=== PATIENT | female | born 1965 | race Caucasian/White ===

== ENCOUNTER 2018-09-13 12:48 | Inpatient (IN) ==
[2018-09-13] MEDS ORDERED: *HR* Promethazine 25 MG/ML VIAL IVP PRN (21:42)
[2018-09-13] MEDS ORDERED: Octreotide 50 MCG/ML SYRINGE IVP ONE (21:42)
[2018-09-13] MEDS ORDERED: *HR* LORazepam 2 MG/ML VIAL IVP PRN (21:42)
[2018-09-13] MEDS ORDERED: Naloxone 0.4 MG/ML INJ IVP PRN (21:42)
[2018-09-13] MEDS ORDERED: Albuterol 2.5 MG/3 ML NEBULIZER IH PRN (21:52)
[2018-09-13] MEDS ORDERED: hydrALAZINE 25 MG TABLET PO SCH (22:00)
[2018-09-13] MEDS: Ipratropium/Albuterol Neb 3 ML IH SCH (22:49)
[2018-09-13 22:50] LABS: Basophils % 0.8 %; Eosinophils % 1.7 %; Hematocrit 24.9 % (35.3-44.9); Hemoglobin 8.5 g/dL (11.5-15.4); Immature Granulocytes % 0.4 % (0-4); Immature Platelets 2.2 % (1.1-6.1); Lymphocytes # 0.4 K/mcL (0.6-4.6); Mean Corpuscular HGB Conc 34.1 g/dL (31.6-35.5); Mean Corpuscular Hemoglobin 29.7 pg (28.0-33.3); Mean Corpuscular Volume 87.1 fL (83.0-100.0); Mean Platelet Volume 9.3 fL (9.4-12.4); Monocytes # 0.4 K/mcL (0.0-1.3); Neutrophils # 1.6 K/mcL (1.6-8.9); Red Blood Count 2.86 M/mcL (3.82-4.97); Red Cell Distribution Width 13.7 % (11.5-14.5); Segmented Neutrophils % 67.1 %
[2018-09-13] MEDS: Vitamin B Complex/Vit C/Vit E 1 EACH TABLET PO SCH (22:50)
[2018-09-13] MEDS: Thiamine (B-1) 100 MG TABLET PO SCH (22:50)
[2018-09-13] MEDS: Gabapentin 300 MG CAPSULE PO SCH (22:50)
[2018-09-13] MEDS: Folic Acid 1 MG TABLET PO SCH (22:50)
[2018-09-13] MEDS: Levofloxacin 500 MG/100 ML 500 MG/100 ML BAG IVPB SCH (22:55)
--- NOTE | 2018-09-13 22:55 | Internal Med History&Physical ---
Date of Encounter: 09/13/18 Time of Encounter: 20:05 Internal Medicine - H&P: HPI Chief complaint: weak, anemic, SOB, cough, GI bleed Admitted From: Hospital to Hospital Transfer Plans for Post Hospital Care: Home History of present illness: Ms. Alexander is a 52 year old female who presents in transfer from [facility] for concerns of GI/variceal bleed. She was admitted there overnight last night for concerns of symptomatic anemia, weakness, cough, COPD flareup, and hyponatremia. She was found to be anemic with a hemoglobin of 10.1 yesterday and then follow-up testing today revealed hemoglobin of 7.2. Patient, herself, denies any hematemesis, melena, or hematochezia. I cannot find any documentation in the transfer records of any gross blood loss per nursing and/or transfer notes. However, there is a 3 g hemoglobin drop. I reviewed old records and note that she has known esophageal varices. Her last endoscopy here was 2 years ago in May,. At that time, she underwent variceal banding by Dr. Kelsey. She also has laboratory evidence of pancreatitis. She is a heavy drinker of alcohol and has cirrhosis secondary to alcohol abuse. She denies any fevers, but she has had cough, wheezing, productive sputum, and some difficulty breathing at times with wheezing. Because of the high concern for variceal bleed, I contacted Dr. Kelsey and spoke to him by telephone. He is av ailable should we need to proceed with EGD emergently. He recommended starting her on octreotide infusion, transfusing blood as needed, and monitoring her closely. Regarding her hyponatremia, reviewed old labs and this appears to be chronic and most likely due to chronic alcohol abuse. Despite laboratory evidence of pancreatitis, she is requesting food and is hungry. She denies any abdominal pain, nausea, or vomiting. Past Med Surg Social Fam HX - Past Medical History Attestation: Yes The following information was validated with the patient. Source: patient, old records reviewed, obtained from family, other (transfer records) Medical history: cirrhosis, GERD, hypertension, liver disease, renal disease, thyroid disease Additional medical history: esophageal varices grade 2, insomnia Psychiatric history: no psych history - Past Surgical History Surgical History: orthopedic, other, other Additional surgical history: egd - esophageal banding, hand surgery, tonsils and adenoids, jaw, head - Social History Smoking Status: Current every day smoker Packs per day: 1 Smokeless Tobacco Status: Yes Alcohol use: heavy, recent Drug use: none Current living situation: Home, With Family Activity Level: Independent ambulation Recent Out of Country Travel Within the Last 8 Weeks: No - Family History Mother Hx Family GI Disorders: No Father Hx Family GI Disorders: No Internal Medicine - H&P: Meds Furosemide [Lasix] 20 mg PO BID PRN 05/30/16 [History] Gabapentin [Neurontin] 300 mg PO BID 05/30/16 [History] Iron Polysaccharide Complex [Ferrex 150] 150 mg PO DAILY 05/30/16 [History] Levothyroxine [Synthroid] 175 mcg PO DAILY 05/30/16 [History] Omeprazole [PriLOSEC] 20 mg PO DAILY 05/30/16 [History] Potassium Chloride [K-Tab ER] 20 meq PO DAILY 05/30/16 [History] Lisinopril [Zestril] 20 mg PO DAILY 07/26/17 [History] Albuterol Sulfate [Albuterol Inhaler] 2 puff IH Q4HR PRN 09/13/18 [History] Doxycycline 100 mg PO BID 09/13/18 [History] Hydralazine HCl 50 mg PO TID 09/13/18 [History] Nadolol 20 mg PO DAILY 09/13/18 [History] Oxycodone HCl 5 mg PO Q8H PRN 09/13/18 [History] Spironolactone 25 mg PO DAILY 09/13/18 [History] Trazodone HCl 50 mg PO HS 09/13/18 [History] Allergy/AdvReac Type Severity Reaction Status Date / Time No Known Allergies Allergy Verified 09/13/18 19:34 - Constitutional Constitutional: fatigue, malaise, weakness, no chills, no fever(s), no night sweats - EENT Eyes: no blurry vision, no change in vision Ears: no ear pain, no tinnitus Nose, mouth and throat: no nasal congestion, no sinus pressure, no sore throat - Cardiovascular Cardiovascular ROS IM: dyspnea, dyspnea on exertion, lightheadedness, no chest pain, no orthopnea, no paroxysmal nocturnal dyspnea, no syncope - Respiratory Respiratory: cough, dyspnea, wheezing, chest congestion, change in phlegm color, no hemoptysis, no excessive phlegm production, no pain with cough - Gastrointestinal Gastrointestinal: heartburn, no abdominal pain, no diarrhea, no hematemesis, no hematochezia, no melena, no nausea, no vomiting - Genitourinary Genitourinary: no dysuria, no flank pain, no hematuria - Musculoskeletal Musculoskeletal ROS IM: no arthralgias, no back pain - Integumentary Integumentary IM: no pruritus, no rash, no jaundice - Neurological Neurological ROS: dizziness, no convulsions, no disequilibrium, no focal weakness, no frequent falls, no headache(s) - Psychiatric Psychiatric: no anxiety, no depression - Endocrine Endocrine IM: no cold intolerance, no heat intolerance, no polydipsia, no poly uria - Hematologic/Lymphatic Hematologic/Lymphatic: easy bruising - Allergic/Immunologic Allergic/Immunologic: wheezing, GI upset with certain foods - Constitutional Vitals: Temp Pulse Resp BP Pulse Ox 98.4 F 64 15 188/82 98 09/13/18 19:35 09/13/18 19:35 09/13/18 19:35 09/13/18 19:35 09/13/18 19:35 General appearance: Present: disheveled, A&O X 3, no acute distress, answers questions appropriately Exam: see below - Head Head exam: Present: atraumatic, normal inspection - Eye Eye exam: Present: EOMI, PERRL. Absent: scleral icterus Pupils: Present: normal accommodation - ENT ENT exam: Present: mucous membranes dry, normal oropharynx Additional comments: poor dentition - Neck Neck exam general surgery: Present: full ROM, supple, trachea midline. Absent: tenderness, nuchal rigidity, thyromegaly - Respiratory Respiratory exam: Present: prolonged expiratory phase, rales (left lung 1/2 way up), rhonchi, wheezes (diffuse scattered wheezes). Absent: accessory muscle use, chest wall tenderness, respiratory distress - Cardiovascular Cardiovascular exam: Present: distant heart sounds, +S1, +S2, systolic murmur. Absent: diastolic murmur, JVD - GI/Abdominal GI/Abdominal exam: Present: distended, hypoactive bowel sounds, soft, no peritoneal signs. Absent: guarding, hepatomegaly, mass, rebound, splenomegaly, tenderness - Extremities Exam Extremities exam: Present: full ROM, pedal edema (1-2+), warm, radial pulses palpable and symmetrical. Absent: calf tenderness, joint swelling, tenderness Additional comments: palmar erythema - Back Exam Back exam: Present: normal inspection. Absent: CVA tenderness (L), CVA tenderness (R) - Neurological Exam Neurological exam: Present: alert, CN II-XII intact, oriented X3, no focal deficits, strengths equal and symetr throughout Additional comments: no tremors, no asterixis; no hallucinations; no sign of withdrawal - Psychiatric Psychiatric exam: Present: flat affect - Skin Skin exam: Present: dry, intact, petechiae (rare, scattered), warm. Absent: rash Internal Med - H&P Results - Labs Labs: I reviewed labs from [facility] include the following: Sodium 122 Potassium 4.9 Chloride 86 Carbon dioxide 23 BUN 38 Creatinine 2.1 Glucose 96 Total bilirubin 1.0 AST 38 ALT 30 Alkaline phosphatase 187 Lipase 793 PT 12.5 INR 1.22 Hemoglobin yesterday was 10.1, today was 7.2 - Assessment and Plan (1) Upper GI bleed Current Visit: Yes Status: Acute Assessment and plan: 1. Will order STAT labs including: CBC, CMP, PT/PTT, amylase, lipase, T&C for PRBC, blood culture, and CXR. 2. Will start Octreotide and protonix drips. 3. Will monitor serial H/H. 4. Transfuse PRBC to keep Hgb > 10. 5. Consult Dr. Kelsey -- discussed with and notified him. 6. Monitor on telemetry; if she develops acute bleeding and/or becomes hemodynamically unstable, will transfer to ICU. (2) Alcoholism Current Visit: Yes Status: Acute Assessment and plan: 1. Will place on CIWA protocol and monitor closely. 2. Will also schedule low dose Librium in hopes of preventing withdrawal symptoms. (3) Acute exacerbation of chronic obstructive pulmonary disease (COPD) Current Visit: Yes Status: Acute Assessment and plan: 1, Will order CXR, blood culture, sputum culture. 2. Will start on antibiotics, aerosols, and oxygen PRN. 3. She may need systemic steroids as well. (4) DVT prophylaxis Current Visit: Yes Status: Acute Assessment and plan: 1. EPCD's.
[2018-09-13 22:56] LABS: INR 1.4; Prothrombin Time 15.9 Seconds (9.4-12.1)
[2018-09-13 22:59] LABS: Activated Partial Thrombo Time 32.6 Seconds (26.0-36.0)
[2018-09-13 23:09] LABS: Albumin 2.8 g/dL (3.5-5.7); Bilirubin,Total 0.9 mg/dL (0.3-1.0); Calcium 8.2 mg/dL (8.6-10.3); Globulin 2.7 g/dL (2.4-3.5); Magnesium 1.6 mg/dL (1.6-2.6); Phosphorous 4.2 mg/dL (2.7-4.5); Potassium 5.1 mEq/L (3.5-5.1); Total Protein 5.5 g/dL (6.4-8.9)
[2018-09-13 23:12] LABS: Platelet Count 69 K/mcL (140-400)
[2018-09-13 23:14] LABS: Platelet Estimate Decreased (Normal)
[2018-09-13 23:19] LABS: Influenza A PCR Negative (Negative); Influenza B PCR Negative (Negative); Resp. Syncytial Virus PCR Negative (Negative)
[2018-09-13] MEDS: Pantoprazole 40 MG in 0.9 % Sodium Chloride Mini Bag 100 ML IVC SCH (23:20)
[2018-09-13] MEDS: *HR* OxyCODONE Immed Rel 5 MG TABLET PO PRN (23:30)
[2018-09-14] MEDS: Octreotide 400 MCG in 0.9 % Sodium Chloride 100 ML IVC SCH ×3 (00:20→18:41)
[2018-09-14] MEDS ORDERED: 0.9 % Sodium Chloride 500 ML ONE (00:42)
[2018-09-14 02:40] LABS: Calcium 7.9 mg/dL (8.6-10.3); Potassium 5.5 mEq/L (3.5-5.1)
[2018-09-14] MEDS: Pantoprazole 40 MG in 0.9 % Sodium Chloride Mini Bag 100 ML IVC SCH ×3 (03:58→21:37)
[2018-09-14] MEDS: Ipratropium/Albuterol Neb 3 ML IH SCH ×4 (04:14→22:14)
[2018-09-14] MEDS: Folic Acid 1 MG TABLET PO SCH (07:33)
[2018-09-14] MEDS: Gabapentin 300 MG CAPSULE PO SCH ×2 (07:33→20:37)
[2018-09-14] MEDS: Spironolactone 25 MG TABLET PO SCH (07:33)
[2018-09-14] MEDS: Vitamin B Complex/Vit C/Vit E 1 EACH TABLET PO SCH (07:33)
[2018-09-14] MEDS: *HR* OxyCODONE Immed Rel 5 MG TABLET PO PRN ×2 (07:33→16:41)
[2018-09-14] MEDS: Thiamine (B-1) 100 MG TABLET PO SCH (07:34)
[2018-09-14 09:21] LABS: Hematocrit 34.7 % (35.3-44.9)
[2018-09-14 09:22] LABS: Hemoglobin 11.4 g/dL (11.5-15.4)
[2018-09-14 09:36] LABS: Calcium 8.3 mg/dL (8.6-10.3); Potassium 5.2 mEq/L (3.5-5.1)
--- NOTE | 2018-09-14 10:12 | Internal Med Progress Note ---
Hospitalist Progress Note - Encounter Date of Encounter: 09/14/18 Time of Encounter: 10:08 - Subjective Interval History: I've seen and evaluated the patient at bedside. patient reported her pcp told her to go to the hospital due to having low blood level and low sodium. the patient denies seeing blood in her stool or bloody emesis. denies chest pain, na usea or vomiting. - Exam Vitals: Temp Pulse Resp BP Pulse Ox 98.3 F 59 12 194/85 99 09/14/18 07:43 09/14/18 07:43 09/14/18 07:43 09/14/18 07:43 09/14/18 07:43 Exam: Vitals: Reviewed General: Alert and oriented x4. In no distress Skin: Normal color, no rash, no lesions. HEENT: mild sclera icterus, EOM, pupils equal, round and reactive. Cardiovascular: RRR, normal S1 & S2, no rubs, murmurs or gallops. Lungs: CTA b/l, no wheezes or crackles. Abdomen: distended with shifting dullness, non-tender, no rigidity. Extremities: No deformity, no edema or tenderness, no joint swelling or clubbing. Neurological: Normal cognition and motor skills. Rest of the physical exam is non contributory - Assessment and Plan (1) Upper GI bleed Current Visit: Yes Status: Suspected Assessment and Plan: patient is admitted to the hospital due to suspected GI, due to drop in H&H and Hx of esophageal varices. Plan patient has received 2 units of PRBCs continue PPI and octreotide drip per GI recommendations serial cbc Q6HRs, will transfuse per protocol empirically on antibiotics FOBT ordered GI recommendations appreciated (2) Alcoholism Current Visit: Yes Status: Acute Assessment and Plan: patient with no intentional or resting tremors. continue CIWA protocol (3) Acute exacerbation of chronic obstructive pulmonary disease (COPD) Current Visit: Yes Status: Acute Assessment and Plan: CTA b/l. patient in no respiratory distress. continue bronchodilators Q4RT scheduled and PRN will hold steroids due to suspicious of GI bleeding incentive spirometry on levofloxacin 750mg/IV daily (4) Hypertension Current Visit: Yes Status: Chronic Assessment and Plan: BP has been sub-optimally controlled. will resume home dose of hydralazine 50mg/PO TID. lisinopril held due to elevated creat continue hydralazine 10mg/IV Q6HR PRN for SBP >190 (5) Hyperkalemia Current Visit: Yes Status: Acute Assessment and Plan: possible due to spironolactone. will hold today's dose. and repeat bmp at 5pm (6) Liver cirrhosis Current Visit: Yes Status: Chronic Assessment and Plan: patient is on spironolactone. today dose is held due to hyperkalemia patient on nadolol 20mg/PO daily. Patient with cirrhosis and esophageal varices. (7) Hypothyroidism Current Visit: Yes Status: Acute Assessment and Plan: continue levothyroxine 175 mcg/po daily (8) Hyponatremia Current Visit: Yes Status: Acute Assessment and Plan: fluids restriction to 1.5 litters a day. THS reflex to T4 ordered. DVT Prophylaxis: No chemical DVT prophylaxis due to suspected GI bleeding mechanical dvt prophylaxis with intermittent pneumatic compression - Summary of Assessment and Plan Summary of Assessment and Plan: patient to remain in the hospital due to anemia requiring blood transfusion. possible GI bleeding. - Time Spent with Patient Total time spent is greater than 50% in coordination of care (as documented) at patient's floor/unit and/or counseling patient: Greater than 35 minutes (45) Plan of Care Discussed with: patient (and the nurse.) Internal Medicine: Result - Labs CBC & Chem 7: 09/14/18 09:00 09/14/18 09:00 Labs: Short CBC 09/13/18 09/14/18 09/14/18 Range/Units 22:08 02:09 09:00 WBC 2.4 L (4.3-11.1) K/mcL Hgb 8.5 L 8.0 L 11.4 L D (11.5-15.4) g/dL Hct 24.9 L 24.0 L 34.7 L (35.3-44.9) % Plt Count 69 L (140-400) K/mcL Neutrophils # 1.6 (1.6-8.9) K/mcL BMP 09/13/18 09/14/18 09/14/18 22:08 02:09 09:00 Sodium 127 L 125 L 127 L Potassium 5.1 5.5 H 5.2 H Chloride 97 L 100 100 Carbon Dioxide 22 L 19 L 19 L BUN 45 H 43 H 41 H Creatinine 2.13 H 2.01 H 2.01 H Glucose 79 159 H 143 H Calcium 8.2 L 7.9 L 8.3 L Liver Function 09/13/18 Range/Units 22:08 Total Bilirubin 0.9 (0.3-1.0) mg/dL AST 25 (13-39) Units/L ALT 15 (7-52) Units/L Alkaline Phosphatase 129 H (34-104) Units/L Albumin 2.8 L (3.5-5.7) g/dL - ABG Interpretation ABG results: PT/INR, D-dimer PT 15.9 Seconds (9.4-12.1) H 09/13/18 22:22 - Impressions Impressions Chest X-Ray 09/13/18 21:42 IMPRESSION: No acute findings. D/ / Baltazar Bassett / Baltazar Bassett Interpreting Provider: Baltazar Bassett Consult Discharge Plan - Plan Referrals: NONE,PCP [Primary Care Provider] - ____ (4) Hypertension Qualifiers: Hypertension type: unspecified Qualified Code(s): I10 - Essential (primary) hypertension (6) Liver cirrhosis Qualifiers: Hepatic cirrhosis type: alcoholic cirrhosis Ascites presence: with ascites Qualified Code(s): K70.31 - Alcoholic cirrhosis of liver with ascites
[2018-09-14 14:47] LABS: Hematocrit 35.7 % (35.3-44.9); Hemoglobin 11.7 g/dL (11.5-15.4)
[2018-09-14] MEDS: hydrALAZINE 25 MG TABLET PO SCH (14:54)
[2018-09-14 14:55] LABS: Calcium 8.5 mg/dL (8.6-10.3); Potassium 4.6 mEq/L (3.5-5.1)
[2018-09-14] MEDS: Artificial Tears SOLN 15 ML BOTTLE BOTH EYES SCH ×2 (18:01→20:37)
[2018-09-14 20:05] LABS: Hematocrit 37.7 % (35.3-44.9); Hemoglobin 12.3 g/dL (11.5-15.4)
[2018-09-14 20:26] LABS: Calcium 8.6 mg/dL (8.6-10.3); Potassium 4.5 mEq/L (3.5-5.1)
[2018-09-14] MEDS: traZODone 50 MG TABLET PO PRN (20:41)
[2018-09-14] MEDS: Levofloxacin 500 MG/100 ML 500 MG/100 ML BAG IVPB SCH (21:40)
[2018-09-15] MEDS: hydrALAZINE 25 MG TABLET PO SCH ×3 (00:37→15:07)
[2018-09-15] MEDS: *HR* OxyCODONE Immed Rel 5 MG TABLET PO PRN ×3 (00:57→19:31)
[2018-09-15] MEDS ORDERED: Octreotide 400 MCG in 0.9 % Sodium Chloride 100 ML IVC SCH (01:45)
[2018-09-15] MEDS: Octreotide 400 MCG in 0.9 % Sodium Chloride 100 ML IVC SCH (02:01)
[2018-09-15] MEDS: Pantoprazole 40 MG in 0.9 % Sodium Chloride Mini Bag 100 ML IVC SCH (02:41)
[2018-09-15 03:07] LABS: Calcium 8.1 mg/dL (8.6-10.3); Magnesium 1.4 mg/dL (1.6-2.6)
[2018-09-15] MEDS: Ipratropium/Albuterol Neb 3 ML IH SCH ×4 (03:56→21:59)
[2018-09-15 04:04] LABS: Basophils % 1.1 %; Hemoglobin 10.8 g/dL (11.5-15.4); Lymphocytes % 8.3 %; Mean Corpuscular Hemoglobin 29.3 pg (28.0-33.3); Mean Platelet Volume 10.6 fL (9.4-12.4); Red Blood Count 3.69 M/mcL (3.82-4.97); Red Cell Distribution Width 14.6 % (11.5-14.5)
[2018-09-15 04:06] LABS: Eosinophils # 0.1 K/mcL (0.0-0.6); Eosinophils % 2.9 %; Hematocrit 32.4 % (35.3-44.9); Immature Granulocytes % 0.3 % (0-4); Immature Platelets 10.4 % (1.1-6.1); Lymphocytes # 0.3 K/mcL (0.6-4.6); Mean Corpuscular HGB Conc 33.3 g/dL (31.6-35.5); Mean Corpuscular Volume 87.8 fL (83.0-100.0); Monocytes # 0.6 K/mcL (0.0-1.3); Monocytes % 17.4 %; Neutrophils # 2.6 K/mcL (1.6-8.9); Platelet Count 48 K/mcL (140-400)
[2018-09-15 04:28] LABS: Platelet Estimate Decreased (Normal)
[2018-09-15 06:31] LABS: Hemoglobin 11.5 g/dL (11.5-15.4)
[2018-09-15 06:53] LABS: Calcium 8.3 mg/dL (8.6-10.3); Potassium 5.2 mEq/L (3.5-5.1)
[2018-09-15] MEDS: Thiamine (B-1) 100 MG TABLET PO SCH (07:34)
[2018-09-15] MEDS: Vitamin B Complex/Vit C/Vit E 1 EACH TABLET PO SCH (07:34)
[2018-09-15] MEDS: Folic Acid 1 MG TABLET PO SCH (07:35)
[2018-09-15] MEDS: Gabapentin 300 MG CAPSULE PO SCH ×2 (07:35→19:51)
--- NOTE | 2018-09-15 11:49 | Internal Med Progress Note ---
Hospitalist Progress Note - Encounter Date of Encounter: 09/15/18 Time of Encounter: 11:46 - Subjective Interval History: I have seen and evaluated the patient at bedside. patient denies abdominal pain, has not have a BM, denies nausea or vomiting. reports feeling bloated and that she wants to eat. - Exam Vitals: Temp Pulse Resp BP Pulse Ox 97.7 F 69 16 134/79 96 09/15/18 10:18 09/15/18 10:18 09/15/18 10:34 09/15/18 10:18 09/15/18 10:34 Exam: Vitals: Reviewed General: Alert and oriented x4. In no distress HEENT: mild sclera icterus Cardiovascular: RRR, normal S1 & S2, no rubs, murmurs or gallops. Lungs: CTA b/l, no wheezes or crackles. Abdomen: distended with shifting dullness, non-tender, no rigidity. NASB in all 4 quadrants Extremities: No edema Neurological: Normal cognition Rest of the physical exam is non contributory - Assessment and Plan (1) Upper GI bleed Current Visit: Yes Status: Suspected Assessment and Plan: patient admitted for suspicious of GI bleeding with a hx of esophageal varices H&H have remain stable post transfusion of 2 units of PRBCs discontinue octreotide drip discontinue PPI drip will add pantoprazole 40mg/IV BID. clear liquid diet GI has been consulted (2) Alcoholism Current Visit: Yes Status: Acute Assessment and Plan: continue CIWA protocol (3) Acute exacerbation of chronic obstructive pulmonary disease (COPD) Current Visit: Yes Status: Acute Assessment and Plan: excerbation on presentation has resolved. patient chest is clear to auscultation and she is not on respiratory distress. continue bronchodilators Q4RT scheduled. incentive spirometry continue empiric antibiotic coverage with levofloxacin (4) Hypertension Current Visit: Yes Status: Chronic Assessment and Plan: BP better controlled. continue hydralazine 50mg/PO Q8HR and spiromolactone 25mg/PO daily. (5) Hyperkalemia Current Visit: Yes Status: Acute Assessment and Plan: Potassium at the upper limit of normal. patient is on spironolactone will monitor. repeat bmp in the morning (6) Liver cirrhosis Current Visit: Yes Status: Chronic Assessment and Plan: with abdominal ascites. continue spiromolactone 25mg/PO daily. will add furosemide 20mg/PO daily (7) Hypothyroidism Current Visit: Yes Status: Chronic Assessment and Plan: on levothyrocine 175 mcg/PO daily (8) Hyponatremia Current Visit: Yes Status: Acute Assessment and Plan: possible due to spironolactone. continue fluids restriction to 1.5 litters a day. started on furosemide. hold today's dose of spironolactone DVT Prophylaxis: no chemical DVT prophylaxis due to possible GI bleeding intermittent pneumatic compression for dvt prophylaxis - Summary of Assessment and Plan Summary of Assessment and Plan: patient to remain in the hospital due to anemia r/o GI bleeding. - Time Spent with Patient Total time spent is greater than 50% in coordination of care (as documented) at patient's floor/unit and/or counseling patient: Greater than 35 minutes (40) Plan of Care Discussed with: patient (and the nurse.) Internal Medicine: Result - Labs CBC & Chem 7: 09/15/18 05:57 09/15/18 05:57 Labs: Short CBC 09/14/18 09/14/18 09/15/18 Range/Units 14:26 19:56 03:52 WBC 3.7 L D (4.3-11.1) K/mcL Hgb 11.7 12.3 10.8 L D (11.5-15.4) g/dL Hct 35.7 37.7 32.4 L (35.3-44.9) % Plt Count 48 L (140-400) K/mcL Neutrophils # 2.6 (1.6-8.9) K/mcL 09/15/18 Range/Units 05:57 WBC (4.3-11.1) K/mcL Hgb 11.5 (11.5-15.4) g/dL Hct 36.0 (35.3-44.9) % Plt Count (140-400) K/mcL Neutrophils # (1.6-8.9) K/mcL BMP 09/14/18 09/14/18 09/15/18 14:26 19:56 02:20 Sodium 126 L 126 L 127 L Potassium 4.6 4.5 5.0 Chloride 100 100 102 Carbon Dioxide 17 L 17 L 17 L BUN 38 H 38 H 36 H Creatinine 2.09 H 2.06 H 1.83 H Glucose 175 H 115 H 97 Calcium 8.5 L 8.6 8.1 L 09/15/18 05:57 Sodium 127 L Potassium 5.2 H Chloride 102 Carbon Dioxide 18 L BUN 37 H Creatinine 1.95 H Glucose 92 Calcium 8.3 L - ABG Interpretation ABG results: PT/INR, D-dimer PT 15.9 Seconds (9.4-12.1) H 09/13/18 22:22 Consult Discharge Plan - Plan Referrals: NONE,PCP [Primary Care Provider] - (4) Hypertension Qualifiers: Hypertension type: unspecified Qualified Code(s): I10 - Essential (primary) hypertension (6) Liver cirrhosis Qualifiers: Hepatic cirrhosis type: alcoholic cirrhosis Ascites presence: with ascites Qualified Code(s): K70.31 - Alcoholic cirrhosis of liver with ascites (7) Hypothyroidism Qualifiers: Hypothyroidism type: unspecified Qualified Code(s): E03.9 - Hypothyroidism, unspecified
[2018-09-15 15:10] LABS: Hematocrit 38.4 % (35.3-44.9); Hemoglobin 12.3 g/dL (11.5-15.4)
[2018-09-15 15:28] LABS: Calcium 8.1 mg/dL (8.6-10.3); Potassium 4.7 mEq/L (3.5-5.1)
[2018-09-15] MEDS: Pantoprazole 40 MG VIAL IVP SCH (18:55)
[2018-09-15] MEDS: Artificial Tears SOLN 15 ML BOTTLE BOTH EYES SCH ×3 (18:56→21:34)
[2018-09-15 20:33] LABS: Hemoglobin 12.8 g/dL (11.5-15.4)
[2018-09-15 20:51] LABS: Calcium 8.6 mg/dL (8.6-10.3); Potassium 4.4 mEq/L (3.5-5.1)
[2018-09-15] MEDS ORDERED: Simethicone 80 MG TAB.CHEW PO PRN (21:18)
[2018-09-16] MEDS: hydrALAZINE 25 MG TABLET PO SCH ×3 (00:44→17:14)
[2018-09-16] MEDS: Ipratropium/Albuterol Neb 3 ML IH SCH ×4 (04:24→22:06)
[2018-09-16] MEDS: Pantoprazole 40 MG VIAL IVP SCH (05:39)
[2018-09-16 08:32] LABS: Hematocrit 36.5 % (35.3-44.9); Hemoglobin 11.8 g/dL (11.5-15.4); Immature Platelets 7.1 % (1.1-6.1); Mean Corpuscular HGB Conc 32.3 g/dL (31.6-35.5); Mean Corpuscular Hemoglobin 29.5 pg (28.0-33.3); Mean Corpuscular Volume 91.3 fL (83.0-100.0); Mean Platelet Volume 10.1 fL (9.4-12.4); Red Cell Distribution Width 14.8 % (11.5-14.5)
[2018-09-16 08:51] LABS: Calcium 8.6 mg/dL (8.6-10.3); Magnesium 1.6 mg/dL (1.6-2.6); Phosphorous 4.5 mg/dL (2.7-4.5); Potassium 4.6 mEq/L (3.5-5.1)
[2018-09-16] MEDS ORDERED: Furosemide 20 MG TABLET PO SCH (09:00)
[2018-09-16] MEDS ORDERED: Lidocaine -MPF 2% 2 ML VIAL ONE (11:19)
[2018-09-16] MEDS ORDERED: Propofol 500 MG/50 ML INFUS..BTL ONE (11:19)
[2018-09-16] MEDS: Artificial Tears SOLN 15 ML BOTTLE BOTH EYES SCH ×4 (11:59→20:55)
[2018-09-16] MEDS: Folic Acid 1 MG TABLET PO SCH (11:59)
[2018-09-16] MEDS: Gabapentin 300 MG CAPSULE PO SCH ×2 (12:00→20:56)
[2018-09-16] MEDS: Vitamin B Complex/Vit C/Vit E 1 EACH TABLET PO SCH (12:00)
[2018-09-16] MEDS: Thiamine (B-1) 100 MG TABLET PO SCH (12:00)
--- NOTE | 2018-09-16 13:13 | Anesthesia Evaluation PreOp ---
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 Other Medical History: Hepatic (cirrhosis, hep c), Renal (CKD), Thyroid (hypo), GERD, Other (esophageal varices grade 2) Anesthesia History: No Prior Anesthetic Complications, Past Anesthesia : No Alcohol Use: heavy, recent Drug use: none Medications and Allergies Furosemide [Lasix] 20 mg PO BID PRN 05/30/16 [History] Gabapentin [Neurontin] 300 mg PO BID 05/30/16 [History] Iron Polysaccharide Complex [Ferrex 150] 150 mg PO DAILY 05/30/16 [History] Levothyroxine [Synthroid] 175 mcg PO DAILY 05/30/16 [History] Omeprazole [PriLOSEC] 20 mg PO DAILY 05/30/16 [History] Potassium Chloride [K-Tab ER] 20 meq PO DAILY 05/30/16 [History] Lisinopril [Zestril] 20 mg PO DAILY 07/26/17 [History] Albuterol Sulfate [Albuterol Inhaler] 2 puff IH Q4HR PRN 09/13/18 [History] Doxycycline 100 mg PO BID 09/13/18 [History] Hydralazine HCl 50 mg PO TID 09/13/18 [History] Nadolol 20 mg PO DAILY 09/13/18 [History] Oxycodone HCl 5 mg PO Q8H PRN 09/13/18 [History] Spironolactone 25 mg PO DAILY 09/13/18 [History] Trazodone HCl 50 mg PO HS 09/13/18 [History] Allergy/AdvReac Type Severity Reaction Status Date / Time No Known Allergies Allergy Verified 09/13/18 19:34 - Meds/Allergy Pre-op Review Medications Reviewed: Yes Allergies Reviewed: Yes Beta Blockers on Current Med List: No Anesthesia Results - Labs 09/16/18 07:56 09/16/18 07:56 Anesthesia Exam Vital Signs/O2 Sat/Glucose, Most Recent Temp Pulse Resp BP Pulse Ox 97.4 F L 77 15 109/67 94 09/16/18 11:55 09/16/18 11:55 09/16/18 11:55 09/16/18 11:55 09/16/18 11:55 Blood Glucose* 99 Weight: 65 kg NPO (# of Hours): > 8 hr - HEENT Pupil (Motor): Pupils equal Mallampati: III Teeth: Poor dentition - 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
[2018-09-16] MEDS: 0.9 % Sodium Chloride 1,000 ML IVC SCH (13:43)
--- NOTE | 2018-09-16 13:44 | Gastroenterology Consult Note ---
<Anders Buckner - Last Filed: 09/16/18 13:52> Date of Encounter: 09/16/18 Time of Encounter: 11:25 - Assessment and plan (1) Anemia Current Visit: Yes Status: Acute Assessment and plan: She was found to be anemic with a Hgb 10.1 and then follow-up testing revealed Hgb of 7.2. On admission here Hgb 8.5 and today Hgb 11.8. She received 2 units PRBC 09/14. Continue to monitor CBC and transfuse PRBC as needed. Plan for EGD today to r/o esophagitis, esophageal varices, gastritis, duodenitis, PUD, MW tear, or AVM. Keep NPO. Qualifiers: Anemia type: unspecified type Qualified Code(s): D64.9 - Anemia, unspecified (2) Liver cirrhosis Current Visit: Yes Status: Chronic Assessment and plan: On admission MELD-Na 25, Child-Ahn class B, DF 25.7. Continue Lasix and Aldactone for now. Recommend 2-4 BMs daily, use Lactulose as needed. AFP 3 on 09/05/2018. Last RUQ US 07/25/2016 showed cirrhosis with no lesions. Check liver US. Lifestyle Changes: 1. Total abstinence from alcohol including social drinking. 2. No smoking. 3. Gradual loss of weight. 4. Drink at least 3 cups of coffee due to its antioxidant effects in the liver, it reduces risk of HCC and advance fibrosis. 5. If needed, use less than 2 g/day of Tylenol (in divided doses). 6. Vaccination for Hep A, B, Pneumococcus if not already received and yearly influenza vaccination by PCP. 7. Avoid NSAIDS as can cause kidney damage. 8. Avoid benzodiazepines and other sedatives such as anti-histamines, narcotics etc. as can cause encephalopathy or confusion. 9. Take a late carbohydrate meal supplement as it reduces glucose production from protein breakdown and thus improves nutrition. 10. In cirrhosis, statins are safe to use and also improve portal hypertension and decrease risk of HCC. 11. Screening: Hepatocellular cancer screening: US of liver and AFP every 6 months Qualifiers: Hepatic cirrhosis type: alcoholic cirrhosis Ascites presence: with ascites Qualified Code(s): K70.31 - Alcoholic cirrhosis of liver with ascites - Time Spent With Patient Total time spent is greater than 50% in coordination of care (as documented) at patient's floor/unit and/or counseling patient: GI History of Present Illness - Data of Consult Patient: known to practice within the last 3 years Consult date: 09/16/18 Requesting Physician: Rebel Ricketts MD - Consult Narrative Reason for consult: GI/variceal bleeding History of present illness: Ms. Alexander is a 52 year old female with PMHx of cirrhosis, GERD, HTN, COPD, renal disease who presented from outside facility with concerns for GI/variceal bleeding. She was admitted there overnight last night for concerns of symptomatic anemia, weakness, cough, COPD flareup, and hyponatremia. She was found to be anemic with a Hgb 10.1 and then follow-up testing revealed Hgb of 7.2. She denies any fever, chest pain, abdominal pain, melena, hematochezia, hematemesis, or coffee-ground emesis. On admission here Hgb 8.5 and today Hgb 11.8. She received 2 units PRBC 09/14. She is a heavy drinker of alcohol and has cirrhosis secondary to alcohol abuse. Procedures: Colonoscopy 07/26/2017 Dr. Jacobo: Fair prep, two 12 mm tubular adenomas, rectal varices. EGD 05/30/2016 Dr. Kelsey: Grade 1 varices which were banded, portal hypertensive gastropathy, repeat EGD one year. NSAIDs: None Anticoagulation: None Past Med Surg Social Fam HX - Past Medical History Medical history: cirrhosis, GERD, hypertension, liver disease, renal disease, thyroid disease Additional medical history: esophageal varices grade 2, insomnia Psychiatric history: no psych history - Past Surgical History Surgical History: orthopedic, other, other Additional surgical history: egd - esophageal banding, hand surgery, tonsils and adenoids, jaw, head - Social History Smoking Status: Current every day smoker Packs per day: 1 Smokeless Tobacco Status: Yes Alcohol use: heavy, recent Drug use: none - Family History Father Hx Family GI Disorders: No Mother Hx Family GI Disorders: No - Gastrointestinal Gastrointestinal: Present: as per HPI - Constitutional Constitutional: as per HPI - EENT Eyes: as per HPI Ears: Present: as per HPI Nose, mouth and throat: Present: as per HPI - Cardiovascular Cardiovascular ROS: Present: as per HPI - Respiratory Respiratory IM: Present: as per HPI - Genitourinary Genitourinary: Absent: change in color, Urinary frequency - Neurological ROS Neurological GI: Present: as per HPI - Hematologic/Lymphatic Hematologic/Lymphatic pediatric: Present: as per HPI - Musculoskeletal Musculoskeletal ROS GI: Present: as per HPI - Integumentary Integumentary GI: Present: as per HPI - Psychiatric ROS Psychiatric GI: Present: as per HPI - Endocrine Endocrine IM: Present: as per HPI - Constitutional Vitals: Temp Pulse Resp BP Pulse Ox 97.8 F 78 16 144/70 96 09/16/18 13:26 09/16/18 13:26 09/16/18 13:26 09/16/18 13:26 09/16/18 13:26 General appearance: Present: cooperative, A&O X 3, no acute distress, answers questions appropriately - Head Head exam: Present: atraumatic, normocephalic - Eye Eye exam: Present: normal appearance, sclera anicteric - ENT ENT exam: Present: mucous membranes dry - Neck Neck exam general surgery: Present: normal inspection, trachea midline - Respiratory Respiratory exam: Present: decreased breath sounds, rhonchi - Cardiovascular Cardiovascular exam: Present: RRR, +S1, +S2 - GI/Abdominal GI/Abdominal exam: Present: distended, soft, no peritoneal signs. Absent: firm, guarding, tenderness - Rectal Rectal exam: Present: deferred - Extremities Exam Extremities exam: Present: warm - Neurological Exam Neurological exam: Present: no focal deficits - Psychiatric Psychiatric exam: Present: normal affect, normal mood - Skin Skin exam: Present: dry, intact, normal color, warm Results - Labs CBC & Chem 7: 09/16/18 07:56 09/16/18 07:56 Labs: Last Result Calcium 8.6 mg/dL (8.6-10.3) 09/16/18 07:56 Entire Visit Hgb 11.8 g/dL (11.5-15.4) 09/16/18 07:56 Hct 36.5 % (35.3-44.9) 09/16/18 07:56 PT 15.9 Seconds (9.4-12.1) H 09/13/18 22:22 Total Bilirubin 0.9 mg/dL (0.3-1.0) 09/13/18 22:08 AST 25 Units/L (13-39) 09/13/18 22:08 ALT 15 Units/L (7-52) 09/13/18 22:08 Amylase 80 Units/L (29-103) 09/15/18 20:01 Lipase 135 Units/L (11-82) H 09/15/18 20:01 - ABG ABG results: PT/INR, D-dimer PT 15.9 Seconds (9.4-12.1) H 09/13/18 22:22 - Impressions Impressions Knee X-Ray 09/16/18 06:24 IMPRESSION: No acute osseous abnormality. D/ / 09/16/2018 08:11:17 Devin Segura MD / hailee Interpreting Provider: Devin Segura MD Lumbar Spine X-Ray 09/16/18 06:25 IMPRESSION: No acute osseous abnormality. Minimal degenerative disc disease. D/ / 09/16/2018 08:14:46 Devin Segura MD / hailee Interpreting Provider: Devin Segura MD Consult Discharge Plan - Plan Referrals: Chris Berry MD [Partnered Physician] - 10/01/18 11:00 am Prescriptions: RX: amLODIPine [Norvasc] 5 mg PO DAILY #60 tablet RX: Folic Acid 1 mg PO DAILY #30 tablet RX: Lactulose 30 gm PO BID #60 udc RX: Rifaximin [Xifaxan] 200 mg PO BID #60 tablet RX: Thiamine (B-1) [Vitamin B-1] 100 mg PO DAILY #30 tablet RX: Vitamin B Complex/Vit C/Vit E [Stresstab] 1 each PO DAILY #30 tablet <Tomasz Jacobo - Last Filed: 09/25/18 06:01> Date of Encounter: 09/16/18 - Time Spent With Patient Total time spent is greater than 50% in coordination of care (as documented) at patient's floor/unit and/or counseling patient: GI History of Present Illness - Data of Consult Requesting Physician: Rebel Ricketts MD - Consult Narrative History of present illness: Ms. Alexander is a 52 year old female - Constitutional Vitals: Temp Pulse Resp BP Pulse Ox 98 F 67 15 174/76 96 09/25/18 03:15 09/25/18 03:15 09/25/18 03:15 09/25/18 03:15 09/25/18 03:15 Results - Labs CBC & Chem 7: 09/24/18 04:02 09/24/18 04:02 Labs: Last Result Calcium 9.1 mg/dL (8.6-10.3) 09/24/18 04:02 Peritoneal Appearance CLEAR (Clear) 09/19/18 08:52 Peritoneal Volume 1200.0 mL 09/19/18 08:52 Peritoneal pH 7.50 pH Units (No Ref Range) 09/19/18 08:52 Peritoneal RBC < 0.002 M/mcL (0.000-0.002) 09/19/18 08:52 Periton Tot Nuc Cells 157 TNC/mcL (0-300) 09/19/18 08:52 Periton Lymphocytes % 6.0 % 09/19/18 08:52 Periton Monocytes % 2.0 % 09/19/18 08:52 Peritoneal Tot Protein < 3.0 g/dL (No Ref Range) 09/19/18 08:52 Peritoneal Glucose 106 mg/dL (No Ref Range) 09/19/18 08:52 Peritoneal Amylase 12 Units/L (No Ref Range) 09/19/18 08:52 Entire Visit Hgb 9.1 g/dL (11.5-15.4) L 09/24/18 04:02 Hct 28.4 % (35.3-44.9) L 09/24/18 04:02 PT 15.9 Seconds (9.4-12.1) H 09/13/18 22:22 Total Bilirubin 0.8 mg/dL (0.3-1.0) 09/22/18 08:17 AST 25 Units/L (13-39) 09/22/18 08:17 ALT 20 Units/L (7-52) 09/22/18 08:17 Ammonia 39 mcmol/L (16-53) 09/23/18 14:17 Amylase 80 Units/L (29-103) 09/15/18 20:01 Lipase 135 Units/L (11-82) H 09/15/18 20:01 - ABG ABG results: PT/INR, D-dimer PT 15.9 Seconds (9.4-12.1) H 09/13/18 22:22 - Attending Attestation Unfortunate lady with cirrhosis and severe anemia. Work up in progress. Plan EGD today I have personally performed a face to face evaluation on this patient. I have reviewed and agree with the care plan. History and Exam by me shows:
[2018-09-16] MEDS ORDERED: D5% in 0.9% NACL 1,000 ML IVC SCH (15:15)
--- NOTE | 2018-09-16 16:12 | Internal Med Progress Note ---
Hospitalist Progress Note - Encounter Date of Encounter: 09/16/18 Time of Encounter: 16:04 - Subjective Interval History: I have seen and evaluated the patient at bedside. today she is somnolent. denies chest pain or shortness of breath. - Exam Vitals: Temp Pulse Resp BP Pulse Ox 96.5 F L 74 16 110/59 100 09/16/18 14:37 09/16/18 14:37 09/16/18 14:37 09/16/18 14:37 09/16/18 14:37 Exam: Vitals: Reviewed General: somnolent. HEENT: mild sclera icterus Cardiovascular: RRR, normal S1 & S2, no rubs, murmurs or gallops. Lungs: CTA b/l, no wheezes or crackles. Abdomen: distended with shifting dullness, non-tender, no rigidity. 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 will change PPI to once a day will continue to monitor H7H and transfuse per protocol GI recommendations appreciated scheduled for a colonoscopy tomorrow. GI recommendations appreciated (2) Alcoholism Current Visit: Yes Status: Acute Assessment and Plan: discontinue CIWA protocol. patient with somnolent today. will monitor. (3) Acute exacerbation of chronic obstructive pulmonary disease (COPD) Current Visit: Yes Status: Acute Assessment and Plan: chest is clear to auscultation patient is on bronchodilators Q4RT scheduled and PRN empirically on levofloxacin 750mg/IV daily incentive spirometry as tolerated (4) Hypertension Current Visit: Yes Status: Chronic Assessment and Plan: BP is well controlled. patient is on spironolactone, furosemide and nadolol. (5) Hyperkalemia Current Visit: Yes Status: Resolved (6) Liver cirrhosis Current Visit: Yes Status: Chronic Assessment and Plan: with esophageal varices. continue furosemide and spironolactone. (7) Hypothyroidism Current Visit: Yes Status: Chronic Assessment and Plan: on levothyroxine (8) Hyponatremia Current Visit: Yes Status: Acute Assessment and Plan: improving. continue fluids restriction to 1.5 litters a day. (9) Encephalopathy acute Current Visit: Yes Status: Acute Assessment and Plan: possible hepatic encephalopathy vs medication. Plan ammonia level started on lactulose 30mg/PO BID titrate for 2-3 BM a day discontinue librium and lorazepam NPO except for medications acc-chechs Q6HRs plus lispro low dose sliding scale. DVT Prophylaxis: no chemical dvt prophylaxis due to GI bleeding r/o on presentation intemittent pneumatic compressions b/l. - Summary of Assessment and Plan Summary of Assessment and Plan: Patient to remain in the hospital due to acute encephalopathy. - Time Spent with Patient Total time spent is greater than 50% in coordination of care (as documented) at patient's floor/unit and/or counseling patient: Greater than 35 minutes (40) Plan of Care Discussed with: nurse Internal Medicine: Result - Labs CBC & Chem 7: 09/16/18 07:56 09/16/18 07:56 Labs: Short CBC 09/15/18 09/16/18 Range/Units 20:01 07:56 WBC 7.7 D (4.3-11.1) K/mcL Hgb 12.8 11.8 (11.5-15.4) g/dL Hct 40.0 36.5 (35.3-44.9) % Plt Count 60 L (140-400) K/mcL BMP 09/15/18 09/16/18 20:01 07:56 Sodium 129 L 129 L Potassium 4.4 4.6 Chloride 103 104 Carbon Dioxide 17 L 17 L BUN 36 H 38 H Creatinine 1.99 H 2.05 H Glucose 110 H 101 Calcium 8.6 8.6 - ABG Interpretation ABG results: PT/INR, D-dimer PT 15.9 Seconds (9.4-12.1) H 09/13/18 22:22 - Impressions Impressions Knee X-Ray 09/16/18 06:24 IMPRESSION: No acute osseous abnormality. D/ / 09/16/2018 08:11:17 Devin Segura MD / hailee Interpreting Provider: Devin Segura MD Lumbar Spine X-Ray 09/16/18 06:25 IMPRESSION: No acute osseous abnormality. Minimal degenerative disc disease. D/ / 09/16/2018 08:14:46 Devin Segura MD / hailee Interpreting Provider: Devin Segura MD Consult Discharge Plan - Plan Referrals: NONE,PCP [Primary Care Provider] - (4) Hypertension Qualifiers: Hypertension type: unspecified Qualified Code(s): I10 - Essential (primary) hypertension (6) Liver cirrhosis Qualifiers: Hepatic cirrhosis type: alcoholic cirrhosis Ascites presence: with ascites Qualified Code(s): K70.31 - Alcoholic cirrhosis of liver with ascites (7) Hypothyroidism Qualifiers: Hypothyroidism type: unspecified Qualified Code(s): E03.9 - Hypothyroidism, unspecified
[2018-09-16] MEDS ORDERED: SODIUM CHLORIDE/NAHCO3/KCL/PEG 4,000 ML SOLN.RECON PO ONE (17:00)
[2018-09-16] MEDS: Lactulose Oral Soln 20 GM/30 ML UDC PO SCH ×2 (17:14→20:55)
[2018-09-16] MEDS: Acetaminophen 325 MG TABLET PO PRN (20:56)
[2018-09-16] MEDS: Levofloxacin 500 MG/100 ML 500 MG/100 ML BAG IVPB SCH (20:57)
--- NOTE | 2018-09-16 21:38 | Anesthesia Evaluation PreOp ---
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 Significant HX Other Medical History: Hepatic (Hep C, cirrhosis, liver failure with INR 1.4, esophageal varices), Renal (acute on chronic kd with Cr 2.0), Bleeding, Thyroid, GERD Anesthesia History: No Prior Anesthetic Complications, Past Anesthesia (esophageal banding, hand surgery, tonsils and adenoids, jaw, head, colonoscopy yesterday) Alcohol Use: heavy, recent Drug use: none Medications and Allergies Furosemide [Lasix] 20 mg PO BID PRN 05/30/16 [History] Gabapentin [Neurontin] 300 mg PO BID 05/30/16 [History] Iron Polysaccharide Complex [Ferrex 150] 150 mg PO DAILY 05/30/16 [History] Levothyroxine [Synthroid] 175 mcg PO DAILY 05/30/16 [History] Omeprazole [PriLOSEC] 20 mg PO DAILY 05/30/16 [History] Potassium Chloride [K-Tab ER] 20 meq PO DAILY 05/30/16 [History] Lisinopril [Zestril] 20 mg PO DAILY 07/26/17 [History] Albuterol Sulfate [Albuterol Inhaler] 2 puff IH Q4HR PRN 09/13/18 [History] Doxycycline 100 mg PO BID 09/13/18 [History] Hydralazine HCl 50 mg PO TID 09/13/18 [History] Nadolol 20 mg PO DAILY 09/13/18 [History] Oxycodone HCl 5 mg PO Q8H PRN 09/13/18 [History] Spironolactone 25 mg PO DAILY 09/13/18 [History] Trazodone HCl 50 mg PO HS 09/13/18 [History] Allergy/AdvReac Type Severity Reaction Status Date / Time No Known Allergies Allergy Verified 09/13/18 19:34 - Meds/Allergy Pre-op Review Medications Reviewed: Yes Allergies Reviewed: Yes Beta Blockers on Current Med List: Yes (nadolol) Anesthesia Results - Labs 09/16/18 07:56 09/16/18 07:56 Anesthesia Exam Last Vital Signs Temp 97.5 F L 09/16/18 20:22 Pulse 77 09/16/18 20:22 Resp 16 09/16/18 20:22 BP 163/95 09/16/18 20:22 Pulse Ox 100 09/16/18 21:20 Weight: 65 kg - HEENT Pupil (Motor): Pupils equal, EOMI Mallampati: IV Teeth: Poor dentition Oral Opening: Less than or equal to 3 - CARTON STENCILER LOC: Oriented - Cardiac Rhythm: Regular Murmur: None - Pulmonary Breath Sounds: bilateral Clear Respiratory Effort: Symmetrical Anesthesia Assess/Plan ASA Score: 4 Level of consciousness: Cooperative Anesthetic Plan: MAC Monitoring Plan: Standard Monitors Recovery Plan: PACU
[2018-09-17] MEDS: hydrALAZINE 25 MG TABLET PO SCH ×3 (00:23→16:04)
[2018-09-17] MEDS: Ipratropium/Albuterol Neb 3 ML IH SCH ×4 (03:45→21:56)
[2018-09-17] MEDS: *HR* OxyCODONE Immed Rel 5 MG TABLET PO PRN ×2 (04:22→16:04)
[2018-09-17 05:57] LABS: Immature Granulocytes % 0.3 % (0-4)
[2018-09-17 05:59] LABS: Basophils % 0.3 %; Eosinophils # 0.1 K/mcL (0.0-0.6); Eosinophils % 1.2 %; Hematocrit 32.7 % (35.3-44.9); Hemoglobin 10.5 g/dL (11.5-15.4); Immature Platelets 2.5 % (1.1-6.1); Lymphocytes # 0.4 K/mcL (0.6-4.6); Lymphocytes % 6.1 %; Mean Corpuscular HGB Conc 32.1 g/dL (31.6-35.5); Mean Corpuscular Hemoglobin 29.3 pg (28.0-33.3); Mean Corpuscular Volume 91.3 fL (83.0-100.0); Mean Platelet Volume 9.7 fL (9.4-12.4); Monocytes # 0.5 K/mcL (0.0-1.3); Neutrophils # 4.8 K/mcL (1.6-8.9); Red Blood Count 3.58 M/mcL (3.82-4.97); Red Cell Distribution Width 14.8 % (11.5-14.5); Segmented Neutrophils % 83.1 %
[2018-09-17 06:07] LABS: Platelet Count 71 K/mcL (140-400)
[2018-09-17 06:16] LABS: Calcium 8.5 mg/dL (8.6-10.3); Magnesium 1.6 mg/dL (1.6-2.6); Phosphorous 4.8 mg/dL (2.7-4.5); Potassium 4.9 mEq/L (3.5-5.1)
[2018-09-17] MEDS: Pantoprazole 40 MG VIAL IVP SCH (08:11)
[2018-09-17] MEDS: Artificial Tears SOLN 15 ML BOTTLE BOTH EYES SCH ×4 (08:11→20:32)
[2018-09-17] MEDS: Spironolactone 25 MG TABLET PO SCH (08:12)
[2018-09-17] MEDS: Folic Acid 1 MG TABLET PO SCH (08:13)
[2018-09-17] MEDS: Lactulose Oral Soln 20 GM/30 ML UDC PO SCH ×2 (08:13→20:31)
[2018-09-17] MEDS: Thiamine (B-1) 100 MG TABLET PO SCH (08:14)
[2018-09-17] MEDS: Gabapentin 300 MG CAPSULE PO SCH ×2 (08:14→20:31)
[2018-09-17] MEDS: Vitamin B Complex/Vit C/Vit E 1 EACH TABLET PO SCH (08:14)
[2018-09-17] MEDS: 0.9 % Sodium Chloride 1,000 ML IVC SCH (09:45)
--- NOTE | 2018-09-17 13:23 | Internal Med Progress Note ---
Hospitalist Progress Note - Encounter Date of Encounter: 09/17/18 Time of Encounter: 13:20 - Subjective Interval History: I have seen the patient at bedside. patient less somnolent that yesterday, report mild shortness of breath. denies abdominal pain - Exam Vitals: Temp Pulse Resp BP Pulse Ox 97.3 F L 73 16 127/84 98 09/17/18 10:45 09/17/18 10:45 09/17/18 11:09 09/17/18 10:45 09/17/18 11:09 Exam: Vitals: Reviewed General: Awake, AO4. somnolence improving HEENT: mild sclera icterus Cardiovascular: RRR, normal S1 & S2, no rubs, murmurs or gallops. Lungs:crackles at the bases b/l. no wheezing Abdomen: distended with shifting dullness, non-tender, no rigidity. 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 will continue lactulose 30gm/PO BID, titrate for 2-3 BM. (2) Upper GI bleed Current Visit: Yes Status: Suspected Assessment and Plan: patient s/p EGD: grade 1 esophageal varices and protal hypertension. continue pantoprazole 40mg/IV daily monitor H7H and transfuse per protocol GI recommendations appreciated scheduled for a colonoscopy today (3) Alcoholism Current Visit: Yes Status: Acute Assessment and Plan: patient with no signs of alcohol withdrawal. will monitor clinically. (4) Acute exacerbation of chronic obstructive pulmonary disease (COPD) Current Visit: Yes Status: Acute Assessment and Plan: No wheezing on auscultation. crackles. continue bronchodilators scheduled. On empiric antibiotics. incentive spirometry (5) Hypertension Current Visit: Yes Status: Chronic Assessment and Plan: BP has been well controlled on [id number] daily. started on furosedemide, patient with crackle on both lung field, positive balance of 5 litters total. continue hydralazine 50mg/PO TID. (6) Liver cirrhosis Current Visit: Yes Status: Chronic Assessment and Plan: with ascites and esophageal varices. continue spironolactone and nadolol. (7) Hypothyroidism Current Visit: Yes Status: Chronic Assessment and Plan: continue levothyroxine 175 mcg/po daily (8) Hyponatremia Current Visit: Yes Status: Acute Assessment and Plan: resolving. patient change in mental status likely unrelated to this abnormality. continue fluid restriction to 1.5 litters a day. (9) Hyperkalemia Current Visit: Yes Status: Resolved (10) CKD (chronic kidney disease) Current Visit: Yes Status: Chronic Assessment and Plan: kidney function is at baseline. avoid nephrotoxic medications. DVT Prophylaxis: no chemical dvt prophylaxis due to anemia requiring blood transfusion. mechanical DVT prophylaxis with intermittent pneumatic compression. - Summary of Assessment and Plan Summary of Assessment and Plan: Patient to remain in the hospital due to encephalopathy, improving. potential discharge tomorrow - Time Spent with Patient Total time spent is greater than 50% in coordination of care (as documented) at patient's floor/unit and/or counseling patient: Greater than 35 minutes (38) Plan of Care Discussed with: nurse Internal Medicine: Result - Labs CBC & Chem 7: 09/17/18 05:14 09/17/18 05:14 Labs: Short CBC 09/17/18 Range/Units 05:14 WBC 5.8 (4.3-11.1) K/mcL Hgb 10.5 L (11.5-15.4) g/dL Hct 32.7 L (35.3-44.9) % Plt Count 71 L (140-400) K/mcL Neutrophils # 4.8 (1.6-8.9) K/mcL BMP 09/17/18 05:14 Sodium 131 L Potassium 4.9 Chloride 105 Carbon Dioxide 20 L BUN 39 H Creatinine 2.21 H Glucose 101 Calcium 8.5 L - ABG Interpretation ABG results: PT/INR, D-dimer PT 15.9 Seconds (9.4-12.1) H 09/13/18 22:22 - Impressions Impressions Knee X-Ray 09/16/18 06:24 IMPRESSION: No acute osseous abnormality. D/ / 09/16/2018 08:11:17 Devin Segura MD / hailee Interpreting Provider: Devin Segura MD Lumbar Spine X-Ray 09/16/18 06:25 IMPRESSION: No acute osseous abnormality. Minimal degenerative disc disease. D/ / 09/16/2018 08:14:46 Devin Segura MD / hailee Interpreting Provider: Devin Segura MD Liver Ultrasound 09/16/18 16:00 IMPRESSION: Cirrhotic morphology of the liver. Moderate right quadrant ascites. Cholelithiasis. Mild diffuse wall thickening the urinary bladder is likely related to liver disease/ascites. D/ / Naz Renteria Cha, MD / Naz Renteria Cha, MD Interpreting Provider: Naz Renteria Cha, MD Consult Discharge Plan - Plan Referrals: Chris Berry MD [Partnered Physician] - 10/01/18 11:00 am (5) Hypertension Qualifiers: Hypertension type: unspecified Qualified Code(s): I10 - Essential (primary) hypertension (6) Liver cirrhosis Qualifiers: Hepatic cirrhosis type: alcoholic cirrhosis Ascites presence: with ascites Qualified Code(s): K70.31 - Alcoholic cirrhosis of liver with ascites (7) Hypothyroidism Qualifiers: Hypothyroidism type: unspecified Qualified Code(s): E03.9 - Hypothyroidism, unspecified (10) CKD (chronic kidney disease) Qualifiers: Chronic kidney disease stage: stage 3 (moderate) Qualified Code(s): N18.3 - Chronic kidney disease, stage 3 (moderate)
[2018-09-17] MEDS ORDERED: Lidocaine -MPF 2% 2 ML VIAL ONE (13:52)
[2018-09-17] MEDS: Furosemide 20 MG TABLET PO SCH (13:52)
[2018-09-17] MEDS ORDERED: *HR* Propofol 200 MG/20 ML VIAL IVP ONE (14:07)
[2018-09-17] MEDS: Acetaminophen 325 MG TABLET PO PRN (20:42)
[2018-09-18] MEDS: hydrALAZINE 25 MG TABLET PO SCH ×4 (00:04→23:45)
[2018-09-18] MEDS: *HR* OxyCODONE Immed Rel 5 MG TABLET PO PRN ×4 (00:04→23:45)
[2018-09-18] MEDS: traZODone 50 MG TABLET PO PRN ×2 (00:06→23:45)
[2018-09-18] MEDS: Ipratropium/Albuterol Neb 3 ML IH SCH ×2 (04:13→10:09)
[2018-09-18 05:33] LABS: Basophils % 0.6 %; Immature Granulocytes % 0.4 % (0-4); Mean Platelet Volume 9.8 fL (9.4-12.4)
[2018-09-18 05:36] LABS: Basophils # 0.1 K/mcL (0.0-0.2); Eosinophils # 0.2 K/mcL (0.0-0.6); Hematocrit 35.6 % (35.3-44.9); Hemoglobin 11.2 g/dL (11.5-15.4); Immature Platelets 6.4 % (1.1-6.1); Lymphocytes # 0.5 K/mcL (0.6-4.6); Lymphocytes % 5.5 %; Mean Corpuscular HGB Conc 31.5 g/dL (31.6-35.5); Mean Corpuscular Hemoglobin 28.8 pg (28.0-33.3); Mean Corpuscular Volume 91.5 fL (83.0-100.0); Monocytes % 11.9 %; Neutrophils # 6.5 K/mcL (1.6-8.9); Red Blood Count 3.89 M/mcL (3.82-4.97); Red Cell Distribution Width 15.3 % (11.5-14.5); Segmented Neutrophils % 79.6 %
[2018-09-18 05:53] LABS: Calcium 8.7 mg/dL (8.6-10.3); Magnesium 1.7 mg/dL (1.6-2.6); Phosphorous 4.9 mg/dL (2.7-4.5); Potassium 4.7 mEq/L (3.5-5.1)
[2018-09-18 05:56] LABS: Platelet Count 71 K/mcL (140-400)
[2018-09-18] MEDS: Artificial Tears SOLN 15 ML BOTTLE BOTH EYES SCH ×4 (07:42→23:49)
[2018-09-18] MEDS: Pantoprazole 40 MG VIAL IVP SCH (07:42)
[2018-09-18] MEDS: Spironolactone 25 MG TABLET PO SCH (07:44)
[2018-09-18] MEDS: Folic Acid 1 MG TABLET PO SCH (07:46)
[2018-09-18] MEDS: Gabapentin 300 MG CAPSULE PO SCH ×2 (07:46→21:02)
[2018-09-18] MEDS: Vitamin B Complex/Vit C/Vit E 1 EACH TABLET PO SCH (07:46)
[2018-09-18] MEDS: Furosemide 20 MG TABLET PO SCH (07:46)
[2018-09-18] MEDS: Lactulose Oral Soln 20 GM/30 ML UDC PO SCH ×2 (07:46→21:02)
[2018-09-18] MEDS: Thiamine (B-1) 100 MG TABLET PO SCH (07:46)
--- NOTE | 2018-09-18 09:27 | Internal Med Progress Note ---
<Alvaro Navarro - Last Filed: 09/18/18 13:46> Hospitalist Progress Note - Encounter Date of Encounter: 09/18/18 Time of Encounter: 08:00 - Subjective Interval History: Patient seen this morning. She was laying in bed. She appears confused. She is not able to discuss the reason for her admission however she does not she has low hemoglobin. Unclear what is patient's baseline is she has a history of alcohol use and cirrhosis. - Exam Vitals: Temp Pulse Resp BP Pulse Ox 97.9 F 81 15 143/83 95 09/18/18 06:30 09/18/18 06:30 09/18/18 06:30 09/18/18 06:30 09/18/18 06:30 Exam: General: Groggy, confused Cardiovascualr: Regular rate and rhythm with no murmur, absent gallops or rubs, absent pedal edema, radial pulses 2 out of 4 Lungs: Clear to auscultation bilaterally, not in respiratory distress Abdomen: Soft nontender, distended positive bowel sounds, Skin: warm and dry, absent rash, absent open wounds and nodules MSK: absent clubbing, cyanosis, joints without swelling Neuro: alert to self, and place not situation or time Psych: Flat affect, confused - Assessment and Plan (1) Hepatic encephalopathy Current Visit: Yes Status: Acute Assessment and Plan: In the setting of alcoholic cirrhosis Patient is confused on my exam however I do not know baseline for her mental status She was started on lactulose 30 mg twice a day and titrated to 3 bowel movements We will add rifaximin to this regimen. (2) GI bleed Current Visit: Yes Status: Acute Assessment and Plan: Patient on presentation was found to have a hemoglobin of 10.1 and follow-up revealed a hemoglobin of 7.2 She has received 2 units of packed red blood cells since admission She underwent EGD which showed grade 1 varices without any overt signs of bleeding and on colonoscopy she was found to have diverticulosis as well as angiodysplastic lesion which was cauterized Patient's hemoglobin has been stable since admission and she is hemodynamically stable We will continue omeprazole, nadolol. (3) Acute kidney injury superimposed on CKD Current Visit: Yes Status: Acute Assessment and Plan: Patient has a history of CKD 3 Her presenting serum creatinine was 2 and this has increased to 2.59 in the last 48 hours. We will hold Lasix and spironolactone and obtain a urine urea, urine serum creatinine Etiology unclear at this time will obtain renal ultrasound and strict I/Os (4) Alcoholism Current Visit: Yes Status: Acute Assessment and Plan: Patient has a history of alcohol use. Neck slight unclear when the last drink was before admission. She was on a Librium taper on admission and does not sinus signs of withdrawal at this point We will continue thiamine, vitamin B stress tab (5) Acute exacerbation of chronic obstructive pulmonary disease (COPD) Current Visit: Yes Status: Resolved Assessment and Plan: Resolved Received 6 days of IV antibiotics, steroids, nebulizer treatments She is not requiring oxygen supplementation. (6) Hypertension Current Visit: Yes Status: Chronic Assessment and Plan: Controlled. Continue hydralazine (7) Liver cirrhosis Current Visit: Yes Status: Chronic Assessment and Plan: Patient has liver cirrhosis Liver ultrasound shows cirrhotic morphology of the liver, moderate right quadrant ascites Currently holding Lasix and spironolactone as her serum creatinine increases Plan on paracentesis today. Lactulose and rifaximin as above. Appreciate GI recommendations. (8) Hypothyroidism Current Visit: Yes Status: Chronic Assessment and Plan: Continue levothyroxine. (9) Hyponatremia Current Visit: Yes Status: Acute Assessment and Plan: Improving with fluid restriction. will increase fluid restriction to 2 L as patient serum creatinine is worsening. DVT Prophylaxis: no chemical dvt prophylaxis due to anemia requiring blood transfusion. mechanical DVT prophylaxis with intermittent pneumatic compression. - Time Spent with Patient Total time spent is greater than 50% in coordination of care (as documented) at patient's floor/unit and/or counseling patient: Internal Medicine: Result - Labs CBC & Chem 7: 09/18/18 04:42 09/18/18 04:42 Labs: Short CBC 09/18/18 Range/Units 04:42 WBC 8.1 (4.3-11.1) K/mcL Hgb 11.2 L (11.5-15.4) g/dL Hct 35.6 (35.3-44.9) % Plt Count 71 L (140-400) K/mcL Neutrophils # 6.5 (1.6-8.9) K/mcL BMP 09/18/18 04:42 Sodium 135 L Potassium 4.7 Chloride 109 H Carbon Dioxide 19 L BUN 40 H Creatinine 2.59 H Glucose 91 Calcium 8.7 - ABG Interpretation ABG results: PT/INR, D-dimer PT 15.9 Seconds (9.4-12.1) H 09/13/18 22:22 Consult Discharge Plan - Plan Referrals: Chris Berry MD [Partnered Physician] - 10/01/18 11:00 am <Vinicius Hazel - Last Filed: 09/18/18 16:10> Hospitalist Progress Note - Encounter Date of Encounter: 09/18/18 - Exam Vitals: Temp Pulse Resp BP Pulse Ox 99.2 F 81 16 119/72 95 09/18/18 11:00 09/18/18 11:00 09/18/18 11:00 09/18/18 11:00 09/18/18 11:00 - Assessment and Plan (1) Upper GI bleed Current Visit: Yes Status: Suspected (2) Alcoholism Current Visit: Yes Status: Acute (3) Acute exacerbation of chronic obstructive pulmonary disease (COPD) Current Visit: Yes Status: Resolved (4) Hypertension Current Visit: Yes Status: Chronic (5) Hyperkalemia Current Visit: Yes Status: Resolved (6) Liver cirrhosis Current Visit: Yes Status: Chronic (7) Hypothyroidism Current Visit: Yes Status: Chronic (8) Hyponatremia Current Visit: Yes Status: Acute (9) Encephalopathy acute Current Visit: Yes Status: Acute (10) CKD (chronic kidney disease) Current Visit: Yes Status: Chronic - Time Spent with Patient Total time spent is greater than 50% in coordination of care (as documented) at patient's floor/unit and/or counseling patient: Internal Medicine: Result - Labs CBC & Chem 7: 09/18/18 04:42 09/18/18 04:42 Labs: Short CBC 09/18/18 Range/Units 04:42 WBC 8.1 (4.3-11.1) K/mcL Hgb 11.2 L (11.5-15.4) g/dL Hct 35.6 (35.3-44.9) % Plt Count 71 L (140-400) K/mcL Neutrophils # 6.5 (1.6-8.9) K/mcL BMP 09/18/18 04:42 Sodium 135 L Potassium 4.7 Chloride 109 H Carbon Dioxide 19 L BUN 40 H Creatinine 2.59 H Glucose 91 Calcium 8.7 - ABG Interpretation ABG results: PT/INR, D-dimer PT 15.9 Seconds (9.4-12.1) H 09/13/18 22:22 - Attending Attestation I have seen and independently examined this patient and I agree with plan as documented Plan Acute hepatic encephalopathy with decompensated liver cirrhosis. on lactulose. Will add rifaximin to regimen. Plan for paracentesis today. On levaquin which should cover SBP prophylaxis Anemia likley 2/2 to GI bleed with acute blood loss. s/p EGD and colonoscopy showing varices, internal hemorrhoids and angiodysplasia. s/p 2 units PRBC trnasfusion. continue protonix COPD exacerbation. Continue nebs and levaquin Hypertension. continue home meds <Alvaro Navarro - Last Filed: 09/18/18 13:46> (2) GI bleed Qualifiers: GI bleed type/associated pathology: unspecified gastrointestinal hemorrhage type Qualified Code(s): K92.2 - Gastrointestinal hemorrhage, unspecified (6) Hypertension Qualifiers: Hypertension type: essential hypertension Qualified Code(s): I10 - Essential (primary) hypertension (7) Liver cirrhosis Qualifiers: Hepatic cirrhosis type: alcoholic cirrhosis Ascites presence: with ascites Qualified Code(s): K70.31 - Alcoholic cirrhosis of liver with ascites (8) Hypothyroidism Qualifiers: Hypothyroidism type: unspecified Qualified Code(s): E03.9 - Hypothyroidism, unspecified <Vinicius Hazel - Last Filed: 09/18/18 16:10> (4) Hypertension Qualifiers: Hypertension type: essential hypertension Qualified Code(s): I10 - Essential (primary) hypertension (6) Liver cirrhosis Qualifiers: Hepatic cirrhosis type: alcoholic cirrhosis Ascites presence: with ascites Qualified Code(s): K70.31 - Alcoholic cirrhosis of liver with ascites (7) Hypothyroidism Qualifiers: Hypothyroidism type: unspecified Qualified Code(s): E03.9 - Hypothyroidism, unspecified (10) CKD (chronic kidney disease) Qualifiers: Chronic kidney disease stage: stage 3 (moderate) Qualified Code(s): N18.3 - Chronic kidney disease, stage 3 (moderate)
[2018-09-18 16:18] LABS: Bilirubin,Urine Negative (Negative); Blood,Urine Negative (Negative); Clarity,Urine Cloudy (Clear); Color,Urine Yellow (Yellow); Glucose,Urine (UA) Normal (Normal); Ketones,Urine Negative (Negative); Leukocyte Esterase,Urine Moderate (Negative); Nitrite,Urine Negative (Negative); Protein,Urine Trace mg/dL (Neg-Trace); Specific Gravity,Urine 1.015 (1.010-1.025); Urobilinogen,Urine Normal (Normal)
[2018-09-18 16:20] LABS: Bacteria,Urine Many per hpf (None-Few); Hyaline Casts,Urine Few per lpf (None-Few); Squamous Epithelial Cell,Urine Many per lpf (None-Few); WBC,Urine 50-100 per hpf (0-3)
[2018-09-18 16:28] LABS: Creatinine,Urine 57 mg/dL
--- NOTE | 2018-09-18 17:18 | Electrocardiograph Report ---
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
[2018-09-18] MEDS: Levofloxacin 500 MG/100 ML 500 MG/100 ML BAG IVPB SCH (21:02)
[2018-09-18] MEDS: Acetaminophen 325 MG TABLET PO PRN (21:02)
[2018-09-19] MEDS: Acetaminophen 325 MG TABLET PO PRN (05:27)
[2018-09-19 06:35] LABS: Hemoglobin 10.6 g/dL (11.5-15.4)
[2018-09-19 06:37] LABS: Basophils % 0.5 %; Eosinophils # 0.2 K/mcL (0.0-0.6); Eosinophils % 2.1 %; Hematocrit 33.3 % (35.3-44.9); Immature Granulocytes % 0.3 % (0-4); Immature Platelets 2.2 % (1.1-6.1); Lymphocytes # 0.5 K/mcL (0.6-4.6); Lymphocytes % 7.3 %; Mean Corpuscular HGB Conc 31.8 g/dL (31.6-35.5); Mean Corpuscular Volume 91.2 fL (83.0-100.0); Mean Platelet Volume 10.3 fL (9.4-12.4); Monocytes # 0.9 K/mcL (0.0-1.3); Monocytes % 12.6 %; Neutrophils # 5.6 K/mcL (1.6-8.9); Red Blood Count 3.65 M/mcL (3.82-4.97); Red Cell Distribution Width 15.4 % (11.5-14.5); Segmented Neutrophils % 77.2 %
[2018-09-19 06:43] LABS: Platelet Count 85 K/mcL (140-400)
[2018-09-19 06:47] LABS: Calcium 9.1 mg/dL (8.6-10.3); Potassium 4.4 mEq/L (3.5-5.1)
--- NOTE | 2018-09-19 07:24 | Internal Med Progress Note ---
<Alvaro Navarro - Last Filed: 09/19/18 10:31> Hospitalist Progress Note - Encounter Date of Encounter: 09/19/18 Time of Encounter: 10:31 - Subjective Interval History: Patient is still confused this morning. She is difficult to awaken and does not answer many questions. She does not appear to be any acute distress. Unclear if she is having bowel movements or making proper urine as it is not being documented. - Exam Vitals: Temp Pulse Resp BP Pulse Ox 97.6 F 83 14 117/77 97 09/19/18 06:43 09/19/18 06:43 09/19/18 06:43 09/19/18 06:43 09/19/18 06:43 Exam: General: Groggy, confused Cardiovascualr: Regular rate and rhythm with no murmur, absent gallops or rubs, bilateral 1+ pedal edema, radial pulses 2 out of 4 Lungs: Bilateral crackles,, not in respiratory distress Abdomen: Soft nontender, distended positive bowel sounds, Skin: warm and dry, absent rash, absent open wounds and nodules MSK: absent clubbing, cyanosis, joints without swelling Neuro: alert to self, and place not situation or time Psych: Flat affect, confused - Assessment and Plan (1) Hepatic encephalopathy Current Visit: Yes Status: Acute Assessment and Plan: In the setting of alcoholic cirrhosis and acute kidney injury on CKD still confused does not answer many questions very concerning that her mental status is not improving She was started on lactulose 30 mg twice a day and titrated to 3 bowel movements continue rifaximin. (2) Liver cirrhosis Current Visit: Yes Status: Chronic Assessment and Plan: Patient has liver cirrhosis Liver ultrasound shows cirrhotic morphology of the liver, moderate right quadrant ascites Currently holding Lasix and spironolactone as her serum creatinine increases underwent paracentesis today Lactulose and rifaximin as above. Appreciate GI recommendations. (3) GI bleed Current Visit: Yes Status: Acute Assessment and Plan: Patient on presentation was found to have a hemoglobin of 10.1 and follow-up revealed a hemoglobin of 7.2 She has received 2 units of packed red blood cells since admission She underwent EGD which showed grade 1 varices without any overt signs of bleeding and on colonoscopy she was found to have diverticulosis as well as angiodysplastic lesion which was cauterized Patient's hemoglobin has been stable since admission and she is hemodynamically stable We will continue omeprazole, nadolol. (4) Acute kidney injury superimposed on CKD Current Visit: Yes Status: Acute Assessment and Plan: Patient's kidney function is worsening Today's serum creatinine is increased to 2.8 along with this patient has increased fluid retention Urine studies show a prerenal etiology Retroperitoneal ultrasound shows nonspecific 1.7 x 1.5 x 1.4 cm lesion in the right kidney that he will need to be reexamined with MRI outpatient. Otherwise this was negative Have consulted nephrology for further recommendations We will avoid any nephrotoxic agents. Hold diuretics. (5) Alcoholism Current Visit: Yes Status: Acute Assessment and Plan: Patient has a history of alcohol use. Neck slight unclear when the last drink was before admission. She was on a Librium taper on admission and does not sinus signs of withdrawal at this point We will continue thiamine, vitamin B stress tab (6) Acute exacerbation of chronic obstructive pulmonary disease (COPD) Current Visit: Yes Status: Resolved Assessment and Plan: Resolved Received 6 days of IV antibiotics, steroids, nebulizer treatments She is not requiring oxygen supplementation. (7) Hypertension Current Visit: Yes Status: Chronic Assessment and Plan: Controlled. Continue hydralazine (8) Hypothyroidism Current Visit: Yes Status: Chronic Assessment and Plan: continue levothyroxine (9) Hyponatremia Current Visit: Yes Status: Resolved - Time Spent with Patient Total time spent is greater than 50% in coordination of care (as documented) at patient's floor/unit and/or counseling patient: Internal Medicine: Result - Labs CBC & Chem 7: 09/19/18 05:12 09/19/18 05:12 Labs: Short CBC 09/19/18 Range/Units 05:12 WBC 7.3 (4.3-11.1) K/mcL Hgb 10.6 L (11.5-15.4) g/dL Hct 33.3 L (35.3-44.9) % Plt Count 85 L (140-400) K/mcL Neutrophils # 5.6 (1.6-8.9) K/mcL BMP 09/19/18 05:12 Sodium 137 Potassium 4.4 Chloride 110 H Carbon Dioxide 19 L BUN 45 H Creatinine 2.87 H Glucose 93 Calcium 9.1 Urine 09/18/18 Range/Units 16:00 Urine Color Yellow (Yellow) Urine Clarity Cloudy A (Clear) Urine pH 5.0 (5.0-8.0) pH Units Ur Specific [place] 1.015 (1.010-1.025) Urine Protein Trace (Neg-Trace) mg/dL Urine Glucose (UA) Normal (Normal) mg/dL - ABG Interpretation ABG results: PT/INR, D-dimer PT 15.9 Seconds (9.4-12.1) H 09/13/18 22:22 - Impressions Impressions Retroperitoneum Ultrasound 09/18/18 17:00 IMPRESSION: Limited examination secondary to patient's body habitus, and ascites. No gross evidence of significant hydronephrosis within limitation of this examination. Follow-up noncontrast CT may provide more information. Echogenic renal cortex may represent medical renal disease. Nonspecific 1.7 x 1.5 x 1.4 cm lesion within the right kidney. This does not appear to be simple cyst. Consider repeat examination when clinically appropriate, or follow-up MRI non-emergently. D/ / 09/18/2018 18:14:08 Rodolfo Christie MD / riccardo Interpreting Provider: Rodolfo Christie MD Consult Discharge Plan - Plan Referrals: Chris Berry MD [Partnered Physician] - 10/01/18 11:00 am <Vinicius Hazel - Last Filed: 09/19/18 13:03> Hospitalist Progress Note - Encounter Date of Encounter: 09/19/18 - Exam Vitals: Temp Pulse Resp BP Pulse Ox 97.6 F 86 14 123/70 96 09/19/18 10:27 09/19/18 10:27 09/19/18 10:27 09/19/18 10:27 09/19/18 10:27 - Assessment and Plan (1) Upper GI bleed Current Visit: Yes Status: Suspected (2) Alcoholism Current Visit: Yes Status: Acute (3) Acute exacerbation of chronic obstructive pulmonary disease (COPD) Current Visit: Yes Status: Resolved (4) Hypertension Current Visit: Yes Status: Chronic (5) Hyperkalemia Current Visit: Yes Status: Resolved (6) Liver cirrhosis Current Visit: Yes Status: Chronic (7) Hypothyroidism Current Visit: Yes Status: Chronic (8) Hyponatremia Current Visit: Yes Status: Resolved (9) Encephalopathy acute Current Visit: Yes Status: Acute (10) CKD (chronic kidney disease) Current Visit: Yes Status: Chronic - Time Spent with Patient Total time spent is greater than 50% in coordination of care (as documented) at patient's floor/unit and/or counseling patient: Internal Medicine: Result - Labs CBC & Chem 7: 09/19/18 05:12 09/19/18 05:12 Labs: Short CBC 09/19/18 Range/Units 05:12 WBC 7.3 (4.3-11.1) K/mcL Hgb 10.6 L (11.5-15.4) g/dL Hct 33.3 L (35.3-44.9) % Plt Count 85 L (140-400) K/mcL Neutrophils # 5.6 (1.6-8.9) K/mcL BMP 09/19/18 05:12 Sodium 137 Potassium 4.4 Chloride 110 H Carbon Dioxide 19 L BUN 45 H Creatinine 2.87 H Glucose 93 Calcium 9.1 Urine 09/18/18 Range/Units 16:00 Urine Color Yellow (Yellow) Urine Clarity Cloudy A (Clear) Urine pH 5.0 (5.0-8.0) pH Units Ur Specific [place] 1.015 (1.010-1.025) Urine Protein Trace (Neg-Trace) mg/dL Urine Glucose (UA) Normal (Normal) mg/dL - ABG Interpretation ABG results: PT/INR, D-dimer PT 15.9 Seconds (9.4-12.1) H 09/13/18 22:22 - Impressions Impressions Retroperitoneum Ultrasound 09/18/18 17:00 IMPRESSION: Limited examination secondary to patient's body habitus, and ascites. No gross evidence of significant hydronephrosis within limitation of this examination. Follow-up noncontrast CT may provide more information. Echogenic renal cortex may represent medical renal disease. Nonspecific 1.7 x 1.5 x 1.4 cm lesion within the right kidney. This does not appear to be simple cyst. Consider repeat examination when clinically appropriate, or follow-up MRI non-emergently. D/ / 09/18/2018 18:14:08 Rodolfo Christie MD / riccardo Interpreting Provider: Rodolfo Christie MD Paracentesis Ultrasound 09/19/18 09:00 IMPRESSION: Successful ultrasound guided paracentesis. D/ / Henri Shah MD / Henri Shah MD Interpreting Provider: Henri Shah MD - Attending Attestation I have seen and independently examined this patient and I agree with plan as documented Plan Acute hepatic encephalopathy with decompensated liver cirrhosis. on lactulose. Will add rifaximin to regimen. s/p paracentesis today with removal of 1.2 L of fluid. Studies not concerning for SBP. Abdomen still distended. Will obtain CT abdomen to r/o any masses Anemia likley 2/2 to GI bleed with acute blood loss. s/p EGD and colonoscopy showing varices, internal hemorrhoids and angiodysplasia. s/p 2 units PRBC trnasfusion. continue protonix COPD exacerbation. Continue nebs and levaquin Hypertension. continue home meds TERRI on CKD 3 possibly 2/2 to hepatorenal syndrome. Renal consulted and appreciate recs. Diuretics on hold <Alvaro Navarro - Last Filed: 09/19/18 10:31> (2) Liver cirrhosis Qualifiers: Hepatic cirrhosis type: alcoholic cirrhosis Ascites presence: with ascites Qualified Code(s): K70.31 - Alcoholic cirrhosis of liver with ascites (3) GI bleed Qualifiers: GI bleed type/associated pathology: unspecified gastrointestinal hemorrhage type Qualified Code(s): K92.2 - Gastrointestinal hemorrhage, unspecified (7) Hypertension Qualifiers: Hypertension type: essential hypertension Qualified Code(s): I10 - Essential (primary) hypertension (8) Hypothyroidism Qualifiers: Hypothyroidism type: unspecified Qualified Code(s): E03.9 - Hypothyroidism, unspecified <Vinicius Hazel - Last Filed: 09/19/18 13:03> (4) Hypertension Qualifiers: Hypertension type: essential hypertension Qualified Code(s): I10 - Essential (primary) hypertension (6) Liver cirrhosis Qualifiers: Hepatic cirrhosis type: alcoholic cirrhosis Ascites presence: with ascites Qualified Code(s): K70.31 - Alcoholic cirrhosis of liver with ascites (7) Hypothyroidism Qualifiers: Hypothyroidism type: unspecified Qualified Code(s): E03.9 - Hypothyroidism, unspecified (10) CKD (chronic kidney disease) Qualifiers: Chronic kidney disease stage: stage 3 (moderate) Qualified Code(s): N18.3 - Chronic kidney disease, stage 3 (moderate)
[2018-09-19] MEDS: Vitamin B Complex/Vit C/Vit E 1 EACH TABLET PO SCH (09:03)
[2018-09-19] MEDS: hydrALAZINE 25 MG TABLET PO SCH ×2 (09:03→17:14)
[2018-09-19] MEDS: Folic Acid 1 MG TABLET PO SCH (09:04)
[2018-09-19] MEDS: Lactulose Oral Soln 20 GM/30 ML UDC PO SCH ×2 (09:04→21:01)
[2018-09-19] MEDS: Thiamine (B-1) 100 MG TABLET PO SCH (09:04)
[2018-09-19] MEDS: Gabapentin 300 MG CAPSULE PO SCH ×2 (09:04→21:01)
[2018-09-19] MEDS: Artificial Tears SOLN 15 ML BOTTLE BOTH EYES SCH ×4 (09:05→21:01)
[2018-09-19 11:25] LABS: RBC,Peritoneal Fluid < 0.002 M/mcL
[2018-09-19 12:13] LABS: Amylase,Peritoneal Fluid 12 Units/L (No Ref Range); Glucose,Peritoneal Fluid 106 mg/dL (No Ref Range); Total Protein,Peritoneal Fluid < 3.0 g/dL (No Ref Range)
[2018-09-19 12:37] LABS: Appearance of Peritoneal Fl CLEAR (Clear)
--- NOTE | 2018-09-19 13:42 | Nephrology Consult Note ---
Date of Encounter: 09/19/18 Time of Encounter: 13:20 Assessment and Plan (1) TERRI (acute kidney injury) Current Visit: Yes Status: Acute Nonoliguric TERRI with recent diuretics but also known hx of cirrhosis. DDx also includes HRS. I agree with holding diuretics, and then should have a spot Caleb checked for HRS work up, which if the suspecion is confirmed, then I'd recommend Albumin, Midodrine and Octreotide. Meanwhile I recommend following a renal protective strategy with strict I/Os, daily weights, renal dosing and avoiding nephrotoxins Thank you for consulting the [facility] group. My colleague Dr. Shetty will be on-call starting tomorrow. Discussed with the Hospitalist resident. (2) Right renal mass Current Visit: Yes Status: Acute (3) Alcoholism Current Visit: Yes Status: Acute (4) Anemia Current Visit: Yes Status: Acute Qualifiers: Anemia type: unspecified type Qualified Code(s): D64.9 - Anemia, unspecified (5) Encephalopathy acute Current Visit: Yes Status: Acute (6) Hypertension Current Visit: Yes Status: Chronic Qualifiers: Hypertension type: essential hypertension Qualified Code(s): I10 - Essential (primary) hypertension (7) Liver cirrhosis Current Visit: Yes Status: Chronic Qualifiers: Hepatic cirrhosis type: alcoholic cirrhosis Ascites presence: with ascites Qualified Code(s): K70.31 - Alcoholic cirrhosis of liver with ascites History of Present Illness - Reason for Consult Consult date: 09/19/18 Acute Kidney Injury Requesting physician: Vinicius Hazel - Chief Complaint TERRI - History of Present Illness This is a 52 y/o WF with a pmh of cirrhosis and nephrology was consulted for TERRI. She has AMS and so she was not able to provide any history. I reviewed the labs, vitals, med lists, progress notes and imaging: worsening TERRI with concern for hepatitic encephalopathy. Family history: the pt could not provide d/t her AMS. ROS: the pt could not provide d/t her AMS. Past Med Surg Social Fam HX - Past Medical History Medical history: cirrhosis, GERD, hypertension, liver disease, renal disease, thyroid disease Additional medical history: esophageal varices grade 2, insomnia Psychiatric history: no psych history - Past Surgical History Surgical History: orthopedic, other, other Additional surgical history: egd - esophageal banding, hand surgery, tonsils and adenoids, jaw, head - Social History Smoking Status: Current every day smoker Packs per day: 1 Smokeless Tobacco Status: Yes Alcohol use: heavy, recent Drug use: none - Family History Mother Hx Family GI Disorders: No Father Hx Family GI Disorders: No Medications and Allergies Furosemide [Lasix] 20 mg PO BID PRN 05/30/16 [History] Gabapentin [Neurontin] 300 mg PO BID 05/30/16 [History] Iron Polysaccharide Complex [Ferrex 150] 150 mg PO DAILY 05/30/16 [History] Levothyroxine [Synthroid] 175 mcg PO DAILY 05/30/16 [History] Omeprazole [PriLOSEC] 20 mg PO DAILY 05/30/16 [History] Potassium Chloride [K-Tab ER] 20 meq PO DAILY 05/30/16 [History] Lisinopril [Zestril] 20 mg PO DAILY 07/26/17 [History] Albuterol Sulfate [Albuterol Inhaler] 2 puff IH Q4HR PRN 09/13/18 [History] Doxycycline 100 mg PO BID 09/13/18 [History] Hydralazine HCl 50 mg PO TID 09/13/18 [History] Nadolol 20 mg PO DAILY 09/13/18 [History] Oxycodone HCl 5 mg PO Q8H PRN 09/13/18 [History] Spironolactone 25 mg PO DAILY 09/13/18 [History] Trazodone HCl 50 mg PO HS 09/13/18 [History] Allergy/AdvReac Type Severity Reaction Status Date / Time No Known Allergies Allergy Verified 09/13/18 19:34 Review of Systems ROS unobtainable: due to mental status Exam - Vital Signs Vital signs: Initial Vital Signs Temp Pulse Resp BP Pulse Ox 98.1 F 65 16 171/84 98 09/13/18 17:32 09/13/18 17:32 09/13/18 17:32 09/13/18 17:32 09/13/18 17:32 Vital Signs - Last 8 Hours Temp Pulse Resp BP Pulse Ox 09/19/18 10:27 97.6 F 86 14 123/70 96 09/19/18 06:43 97.6 F 83 14 117/77 97 Intake and Output 03/27/19 03/28/19 03/28/19 23:59 07:59 15:59 Intake Total 800 / 800 0 / 0 120 / 120 Output Total 400 / 400 Balance 400 / 400 0 / 0 120 / 120 Intake: Oral 800 / 800 0 / 0 120 / 120 Output: Urine 400 / 400 Other: Meal Dinner Breakfast Percent of Meal Consumed 100% 25% # Voids 1 # Bowel Movements 0 0 Weight 66.1 kg Patient Weight 09/19/18 23:59 Weight 66.1 kg - General Appearance General appearance: appears started age, fatigue, frail EENT: ATNC, mucous membranes moist Neck: supple Respiratory: clear Cardiology: edema (nonpitting puffy bilateral pedal edema), regular rate, regular rhythm, normal S1, normal S2 Gastrointestinal: normoactive bowel sounds, no tenderness, no guarding, distended Integumentary: warm and dry Neurologic: confused, disoriented Additional Comments: She would open her eyes to verbal commands but then fall asleep Musculoskeletal: no cyanosis, no clubbing Results - Lab Results 09/20/18 03:57 09/20/18 03:57 Most recent lab results Calcium 9.1 mg/dL (8.6-10.3) 09/19/18 05:12 Phosphorus 4.9 mg/dL (2.7-4.5) H 09/18/18 04:42 Magnesium 1.7 mg/dL (1.6-2.6) 09/18/18 04:42 Urine Creatinine 57 mg/dL 09/18/18 16:00 Reviewed her labs, vitals, medication list, progress notes, and imaging. Consult Discharge Plan - Plan Referrals: Chris Berry MD [Partnered Physician] - 10/01/18 11:00 am
[2018-09-19] MEDS: *HR* OxyCODONE Immed Rel 5 MG TABLET PO PRN (18:27)
[2018-09-20] MEDS: hydrALAZINE 25 MG TABLET PO SCH ×3 (00:38→16:56)
[2018-09-20 04:46] LABS: Basophils # 0.1 K/mcL (0.0-0.2); Basophils % 0.8 %; Eosinophils # 0.2 K/mcL (0.0-0.6); Eosinophils % 3.4 %; Hematocrit 34.9 % (35.3-44.9); Hemoglobin 11.1 g/dL (11.5-15.4); Immature Granulocytes % 0.5 % (0-4); Lymphocytes # 0.5 K/mcL (0.6-4.6); Lymphocytes % 8.1 %; Mean Corpuscular HGB Conc 31.8 g/dL (31.6-35.5); Mean Corpuscular Hemoglobin 29.3 pg (28.0-33.3); Mean Corpuscular Volume 92.1 fL (83.0-100.0); Mean Platelet Volume 9.5 fL (9.4-12.4); Monocytes # 0.7 K/mcL (0.0-1.3); Monocytes % 10.6 %; Neutrophils # 4.9 K/mcL (1.6-8.9); Red Blood Count 3.79 M/mcL (3.82-4.97); Red Cell Distribution Width 15.7 % (11.5-14.5); Segmented Neutrophils % 76.6 %
[2018-09-20 04:49] LABS: Platelet Count 88 K/mcL (140-400)
[2018-09-20 04:51] LABS: Albumin 2.9 g/dL (3.5-5.7); Bilirubin,Total 0.6 mg/dL (0.3-1.0); Calcium 8.9 mg/dL (8.6-10.3); Potassium 4.5 mEq/L (3.5-5.1); Total Protein 5.9 g/dL (6.4-8.9)
[2018-09-20] MEDS ORDERED: Albumin 25% 25gram/100mL 25 GM/100 ML IV.SOLN IVPB ONE (07:34)
[2018-09-20] MEDS: Thiamine (B-1) 100 MG TABLET PO SCH (07:41)
[2018-09-20] MEDS: Lactulose Oral Soln 20 GM/30 ML UDC PO SCH ×2 (07:41→20:32)
[2018-09-20] MEDS: Gabapentin 300 MG CAPSULE PO SCH (07:41)
[2018-09-20] MEDS: Artificial Tears SOLN 15 ML BOTTLE BOTH EYES SCH ×4 (07:41→20:32)
[2018-09-20] MEDS: Folic Acid 1 MG TABLET PO SCH (07:41)
[2018-09-20] MEDS: Vitamin B Complex/Vit C/Vit E 1 EACH TABLET PO SCH (07:41)
--- NOTE | 2018-09-20 09:42 | Internal Med Progress Note ---
<Alvaro Navarro - Last Filed: 09/20/18 09:44> Hospitalist Progress Note - Encounter Date of Encounter: 09/20/18 Time of Encounter: 09:39 - Subjective Interval History: Patient's mental status has considerably improved today. She is alert to self, place but not situation or time. She is interacting more and is able to sit up to the side of the bed when asked. Patient does not have any complaints. She ate most of her breakfast and had a bowel movement this morning with urine production of 400 mL. - Exam Vitals: Temp Pulse Resp BP Pulse Ox 98.7 F 98 15 130/78 96 09/20/18 06:36 09/20/18 06:36 09/20/18 06:36 09/20/18 06:36 09/20/18 06:36 Exam: General: Alert, follows directions, fatigued Cardiovascualr: Regular rate and rhythm with no murmur, absent gallops or rubs, bilateral 1+ pedal edema, radial pulses 2 out of 4 Lungs: Bilateral crackles, not in respiratory distress Abdomen: Soft nontender, distended positive bowel sounds, Skin: warm and dry, absent rash, absent open wounds and nodules MSK: absent clubbing, cyanosis, joints without swelling Neuro: alert to self, and place not situation or time Psych: Flat affect, calm, without anxiety. - Assessment and Plan (1) Hepatic encephalopathy Current Visit: Yes Status: Acute Assessment and Plan: Patient's mental status has improved We will continue lactulose and rifaximin. Titrate to 3 bowel movements. (2) Liver cirrhosis Current Visit: Yes Status: Chronic Assessment and Plan: Patient has liver cirrhosis Liver ultrasound shows cirrhotic morphology of the liver, moderate right quadrant ascites Currently holding Lasix and spironolactone as her serum creatinine increases underwent paracentesis: Fluid analysis negative for SBP. Neutrophil count is 92 Lactulose and rifaximin as above. Appreciate GI recommendations. (3) GI bleed Current Visit: Yes Status: Acute Assessment and Plan: Patient on presentation was found to have a hemoglobin of 10.1 and follow-up revealed a hemoglobin of 7.2 She has received 2 units of packed red blood cells since admission She underwent EGD which showed grade 1 varices without any overt signs of blee ding and on colonoscopy she was found to have diverticulosis as well as angiodysplastic lesion which was cauterized Patient's hemoglobin has been stable since admission and she is hemodynamically stable We will continue omeprazole, nadolol. (4) Acute kidney injury superimposed on CKD Current Visit: Yes Status: Acute Assessment and Plan: Kidney function is stable compared to yesterday. Patient's volume status: Hypervolemic however stable compared to yesterday. Urine studies show a prerenal etiology Retroperitoneal ultrasound shows nonspecific 1.7 x 1.5 x 1.4 cm lesion in the right kidney that he will need to be reexamined with MRI outpatient. Otherwise this was negative Nephrology recommends urine sodium to evaluate for hepatorenal syndrome. We will avoid any nephrotoxic agents. Hold diuretics. (5) Alcoholism Current Visit: Yes Status: Resolved Assessment and Plan: Resolved (6) Acute exacerbation of chronic obstructive pulmonary disease (COPD) Current Visit: Yes Status: Resolved (7) Hypertension Current Visit: Yes Status: Chronic Assessment and Plan: Continue hydralazine (8) Hypothyroidism Current Visit: Yes Status: Chronic (9) Physical deconditioning Current Visit: Yes Status: Acute Assessment and Plan: Consultations physical therapy and occupational therapy Up to chair with assistance DVT Prophylaxis: no chemical dvt prophylaxis due to anemia requiring blood transfusion. mechanical DVT prophylaxis with intermittent pneumatic compression. - Time Spent with Patient Total time spent is greater than 50% in coordination of care (as documented) at patient's floor/unit and/or counseling patient: Internal Medicine: Result - Labs CBC & Chem 7: 09/20/18 03:57 09/20/18 03:57 Labs: Short CBC 09/20/18 Range/Units 03:57 WBC 6.4 (4.3-11.1) K/mcL Hgb 11.1 L (11.5-15.4) g/dL Hct 34.9 L (35.3-44.9) % Plt Count 88 L (140-400) K/mcL Neutrophils # 4.9 (1.6-8.9) K/mcL BMP 09/20/18 03:57 Sodium 138 Potassium 4.5 Chloride 111 H Carbon Dioxide 21 L BUN 46 H Creatinine 2.93 H Glucose 96 Calcium 8.9 Liver Function 09/20/18 Range/Units 03:57 Total Bilirubin 0.6 (0.3-1.0) mg/dL AST 29 (13-39) Units/L ALT 19 (7-52) Units/L Alkaline Phosphatase 188 H (34-104) Units/L Albumin 2.9 L (3.5-5.7) g/dL - ABG Interpretation ABG results: PT/INR, D-dimer PT 15.9 Seconds (9.4-12.1) H 09/13/18 22:22 - Impressions Impressions Paracentesis Ultrasound 09/19/18 09:00 IMPRESSION: Successful ultrasound guided paracentesis. D/ / Henri Shah MD / Henri Shah MD Interpreting Provider: Henri Shah MD Abdomen/Pelvis CT 09/19/18 09:53 IMPRESSION: 1. Interval development of marked nodularity of the liver consistent with cirrhosis. There is also splenomegaly and suggestion of some paraesophageal varices not well depicted on this unenhanced exam. Portal hypertension likely. 2. There is small to moderate volume ascites. 3. Interval development of renal cortical lobularity and loss of renal cortical thickness representing chronic renal parenchymal disease. 4. A 2.1 x 1.4 cm anterior inferior anterior segment right upper lobe ground-glass density along the minor fissure. Six-month follow-up CT recommended. D/ / Jerardo Weeks MD / Jerardo Weeks MD Interpreting Provider: Jerardo Weeks MD Consult Discharge Plan - Plan Referrals: Chris Berry MD [Partnered Physician] - 10/01/18 11:00 am <Vinicius Hazel - Last Filed: 09/20/18 14:54> Hospitalist Progress Note - Encounter Date of Encounter: 09/20/18 - Exam Vitals: Temp Pulse Resp BP Pulse Ox 97.6 F 97 15 134/74 94 09/20/18 14:23 09/20/18 14:23 09/20/18 14:23 09/20/18 14:23 09/20/18 14:23 - Assessment and Plan (1) Upper GI bleed Current Visit: Yes Status: Suspected (2) Alcoholism Current Visit: Yes Status: Resolved (3) Acute exacerbation of chronic obstructive pulmonary disease (COPD) Current Visit: Yes Status: Resolved (4) Hypertension Current Visit: Yes Status: Chronic (5) Hyperkalemia Current Visit: Yes Status: Resolved (6) Liver cirrhosis Current Visit: Yes Status: Chronic (7) Hypothyroidism Current Visit: Yes Status: Chronic (8) Hyponatremia Current Visit: Yes Status: Resolved (9) Encephalopathy acute Current Visit: Yes Status: Acute (10) CKD (chronic kidney disease) Current Visit: Yes Status: Chronic - Time Spent with Patient Total time spent is greater than 50% in coordination of care (as documented) at patient's floor/unit and/or counseling patient: Internal Medicine: Result - Labs CBC & Chem 7: 09/20/18 03:57 09/20/18 03:57 Labs: Short CBC 09/20/18 Range/Units 03:57 WBC 6.4 (4.3-11.1) K/mcL Hgb 11.1 L (11.5-15.4) g/dL Hct 34.9 L (35.3-44.9) % Plt Count 88 L (140-400) K/mcL Neutrophils # 4.9 (1.6-8.9) K/mcL BMP 09/20/18 03:57 Sodium 138 Potassium 4.5 Chloride 111 H Carbon Dioxide 21 L BUN 46 H Creatinine 2.93 H Glucose 96 Calcium 8.9 Liver Function 09/20/18 Range/Units 03:57 Total Bilirubin 0.6 (0.3-1.0) mg/dL AST 29 (13-39) Units/L ALT 19 (7-52) Units/L Alkaline Phosphatase 188 H (34-104) Units/L Albumin 2.9 L (3.5-5.7) g/dL - ABG Interpretation ABG results: PT/INR, D-dimer PT 15.9 Seconds (9.4-12.1) H 09/13/18 22:22 - Attending Attestation I have seen and independently examined this patient and I agree with plan as documented Plan Acute hepatic encephalopathy with decompensated liver cirrhosis. on lactulose. Will add rifaximin to regimen. s/p paracentesis with removal of 1.2 L of fluid. Studies not concerning for SBP. CT abdomen showed small to moderate ascites Anemia likley 2/2 to GI bleed with acute blood loss. s/p EGD and colonoscopy showing varices, internal hemorrhoids and angiodysplasia. s/p 2 units PRBC trnasfusion. continue protonix COPD exacerbation. Continue nebs and levaquin Hypertension. continue home meds TERRI on CKD 3 possibly 2/2 to hepatorenal syndrome. Renal consulted and appre esau recs. Diuretics on hold. Started on albumin ___ <Alvaro Navarro - Last Filed: 09/20/18 09:44> (2) Liver cirrhosis Qualifiers: Hepatic cirrhosis type: alcoholic cirrhosis Ascites presence: with ascites Qualified Code(s): K70.31 - Alcoholic cirrhosis of liver with ascites (3) GI bleed Qualifiers: GI bleed type/associated pathology: unspecified gastrointestinal hemorrhage type Qualified Code(s): K92.2 - Gastrointestinal hemorrhage, unspecified (7) Hypertension Qualifiers: Hypertension type: essential hypertension Qualified Code(s): I10 - Essential (primary) hypertension (8) Hypothyroidism Qualifiers: Hypothyroidism type: unspecified Qualified Code(s): E03.9 - Hypothyroidism, unspecified <Vinicius Hazel A - Last Filed: 09/20/18 14:54> (4) Hypertension Qualifiers: Hypertension type: essential hypertension Qualified Code(s): I10 - Essential (primary) hypertension (6) Liver cirrhosis Qualifiers: Hepatic cirrhosis type: alcoholic cirrhosis Ascites presence: with ascites Qualified Code(s): K70.31 - Alcoholic cirrhosis of liver with ascites (7) Hypothyroidism Qualifiers: Hypothyroidism type: unspecified Qualified Code(s): E03.9 - Hypothyroidism, unspecified (10) CKD (chronic kidney disease) Qualifiers: Chronic kidney disease stage: stage 3 (moderate) Qualified Code(s): N18.3 - Chronic kidney disease, stage 3 (moderate)
--- NOTE | 2018-09-20 13:36 | Nephrology Progress Note ---
Date of Encounter: 09/20/18 Time of Encounter: 12:00 - Assessment and Plan (1) TERRI (acute kidney injury) Current Visit: Yes Status: Acute SCr worse at 2.93, GFR 17 off diuretics UOP noted at 850cc in the past 24hrs Encouraged po fluids Will bolus with albumin today Urine sodium not yet done Continue to avoid nephrotoxins if possible (2) Right renal mass Current Visit: Yes Status: Acute Will need further imaging once TERRI resolves (3) Liver cirrhosis Current Visit: Yes Status: Chronic Per primary team Qualifiers: Hepatic cirrhosis type: alcoholic cirrhosis Ascites presence: with ascites Qualified Code(s): K70.31 - Alcoholic cirrhosis of liver with ascites (4) Alcoholism Current Visit: Yes Status: Resolved (5) Anemia Current Visit: Yes Status: Acute Hgb fairly stable at 11 Qualifiers: Anemia type: unspecified type Qualified Code(s): D64.9 - Anemia, unspecified (6) Encephalopathy acute Current Visit: Yes Status: Acute Subjective Interval history: Pt seen and examined very lethargic but denies any new complaints. Objective - Vital Signs Vital signs: Vital Signs Temp Pulse Resp BP Pulse Ox 09/20/18 10:53 97.8 F 92 14 111/60 94 09/20/18 06:36 98.7 F 98 15 130/78 96 09/20/18 04:39 98.6 F 97 16 148/77 96 09/20/18 00:32 97.7 F 88 14 134/66 97 09/19/18 20:49 98.0 F 91 14 112/66 97 09/19/18 16:55 97.7 F 85 15 153/79 96 09/19/18 14:40 97.6 F 89 14 152/78 97 Intake and Output 09/19/18 09/20/18 09/20/18 23:59 07:59 15:59 Intake Total 0 / 0 240 / 240 240 / 240 Output Total 450 / 450 0 / 0 800 / 800 Balance -450 / -450 240 / 240 -560 / -560 Intake: Oral 0 / 0 240 / 240 240 / 240 Output: Urine 0 / 0 0 / 0 0 / 0 Urine/Stool Mix 450 / 450 800 / 800 Other: Meal Dinner Breakfast Percent of Meal Consumed 50% 50% Stool Size Moderate Stool Consistency liquid Stool Color Brown Yellow - General Appearance General appearance: Present: chronically ill, fatigue, frail EENT: Present: ATNC, mucous membranes dry Neck: Present: no JVD, supple Respiratory: Present: clear (ant bilat) Cardiology: Present: edema (LE bilat), normal S1, normal S2 Gastrointestinal: Present: no tenderness, distended Integumentary: Present: warm and dry Neurologic: Present: no focal deficit Musculoskeletal: Present: no deformities Psychiatric: Present: mood/affect appropriate, cooperative - Lab 09/20/18 03:57 09/20/18 03:57 Most recent lab results Calcium 8.9 mg/dL (8.6-10.3) 09/20/18 03:57 Phosphorus 4.9 mg/dL (2.7-4.5) H 09/18/18 04:42 Magnesium 1.7 mg/dL (1.6-2.6) 09/18/18 04:42 Urine Creatinine 57 mg/dL 09/18/18 16:00 Consult Discharge Plan - Plan Referrals: Chris Berry MD [Partnered Physician] - 10/01/18 11:00 am
[2018-09-20 14:50] LABS: Uric Acid 8.4 mg/dL (2.3-7.6)
[2018-09-20] MEDS: Acetaminophen 325 MG TABLET PO PRN (16:55)
[2018-09-20] MEDS: *HR* OxyCODONE Immed Rel 5 MG TABLET PO PRN (18:25)
[2018-09-21] MEDS: hydrALAZINE 25 MG TABLET PO SCH ×4 (01:14→23:25)
[2018-09-21 03:41] LABS: Albumin 2.9 g/dL (3.5-5.7); Bilirubin,Total 0.6 mg/dL (0.3-1.0); Calcium 8.6 mg/dL (8.6-10.3); Globulin 2.9 g/dL (2.4-3.5); Potassium 4.6 mEq/L (3.5-5.1); Total Protein 5.8 g/dL (6.4-8.9)
--- NOTE | 2018-09-21 07:58 | Internal Med Progress Note ---
Hospitalist Progress Note - Encounter Date of Encounter: 09/21/18 Time of Encounter: 07:50 - Subjective Interval History: No acute events overnight. Kidney function improving this am - Exam Vitals: Temp Pulse Resp BP Pulse Ox 98 F 95 16 156/71 97 09/21/18 04:45 09/21/18 04:45 09/21/18 04:45 09/21/18 04:45 09/21/18 04:45 Exam: General: Alert, follows directions, fatigued Cardiovascualr: Regular rate and rhythm with no murmur, absent gallops or rubs, bilateral 1+ pedal edema, radial pulses 2 out of 4 Lungs: Bilateral crackles, not in respiratory distress Abdomen: Soft nontender, distended positive bowel sounds, Skin: warm and dry, absent rash, absent open wounds and nodules MSK: absent clubbing, cyanosis, joints without swelling Neuro: alert to self, and place not situation or time Psych: Flat affect, calm, without anxiety. - Assessment and Plan (1) Acute kidney injury superimposed on CKD Current Visit: Yes Status: Acute Assessment and Plan: Pt has TERRI on CKD stage 3 possibly secondary to hepatorenal syndrome Kidney function is improving on albumin. Nephrology following (2) Hepatic encephalopathy Current Visit: Yes Status: Acute Assessment and Plan: Pt developed acute hepatic encephalopathy during her hospital course Mental status is improving on lactulose and rifaximin (3) Liver cirrhosis Current Visit: Yes Status: Acute Assessment and Plan: Liver ultrasound shows cirrhotic morphology of the liver, moderate right quadra nt ascites Currently holding Lasix and spironolactone as her serum creatinine increases underwent paracentesis: Fluid analysis negative for SBP. Neutrophil count is 92 Lactulose and rifaximin as above. Appreciate GI recommendations. (4) Upper GI bleed Current Visit: Yes Status: Acute Assessment and Plan: Patient on presentation was found to have a hemoglobin of 10.1 and follow-up revealed a hemoglobin of 7.2 She has received 2 units of packed red blood cells since admission She underwent EGD which showed grade 1 varices without any overt signs of bleeding and on colonoscopy she was found to have diverticulosis as well as angiodysplastic lesion which was cauterized Patient's hemoglobin has been stable since admission and she is hemodynamically stable We will continue omeprazole, nadolol. (5) Alcoholism Current Visit: Yes Status: Resolved Assessment and Plan: patient with no signs of alcohol withdrawal. will monitor clinically. (6) Acute exacerbation of chronic obstructive pulmonary disease (COPD) Current Visit: Yes Status: Resolved Assessment and Plan: No wheezing on auscultation. crackles. continue bronchodilators scheduled. On empiric antibiotics. incentive spirometry (7) Hypertension Current Visit: Yes Status: Chronic Assessment and Plan: Continue hydralazine. Diuretics on hold due to kidney function (8) Hyperkalemia Current Visit: Yes Status: Resolved Assessment and Plan: Resolved (9) Hypothyroidism Current Visit: Yes Status: Chronic Assessment and Plan: continue levothyroxine 175 mcg/po daily (10) Hyponatremia Current Visit: Yes Status: Resolved Assessment and Plan: resolved DVT Prophylaxis: SCD - Time Spent with Patient Total time spent is greater than 50% in coordination of care (as documented) at patient's floor/unit and/or counseling patient: Internal Medicine: Result - Labs CBC & Chem 7: 09/20/18 03:57 09/21/18 02:46 Labs: BMP 09/21/18 02:46 Sodium 139 Potassium 4.6 Chloride 112 H Carbon Dioxide 20 L BUN 44 H Creatinine 2.76 H Glucose 90 Calcium 8.6 Liver Function 09/21/18 Range/Units 02:46 Total Bilirubin 0.6 (0.3-1.0) mg/dL AST 39 (13-39) Units/L ALT 22 (7-52) Units/L Alkaline Phosphatase 178 H (34-104) Units/L Albumin 2.9 L (3.5-5.7) g/dL - ABG Interpretation ABG results: PT/INR, D-dimer PT 15.9 Seconds (9.4-12.1) H 09/13/18 22:22 - Impressions Impressions Retroperitoneum Ultrasound 09/18/18 17:00 IMPRESSION: 1. Limited examination secondary to patient's body habitus, and ascites. 2. No gross evidence of significant hydronephrosis within limitation of this examination. Follow-up noncontrast CT may provide more information. 3. Echogenic renal cortex may represent medical renal disease. 4. Nonspecific 1.7 x 1.5 x 1.4 cm lesion within the right kidney. This does not appear to be simple cyst. Consider repeat examination when clinically appropriate, or follow-up MRI non-emergently. 5. Hepatic cirrhosis with ascites. D/ / 09/18/2018 18:14:08 Rodolfo Christie MD / [email or web address] Interpreting Provider: Rodolfo Christie MD Consult Discharge Plan - Plan Referrals: Chris Berry MD [Partnered Physician] - 10/01/18 11:00 am __ (3) Liver cirrhosis Qualifiers: Hepatic cirrhosis type: alcoholic cirrhosis Ascites presence: with ascites Qualified Code(s): K70.31 - Alcoholic cirrhosis of liver with ascites (7) Hypertension Qualifiers: Hypertension type: essential hypertension Qualified Code(s): I10 - Essential (primary) hypertension (9) Hypothyroidism Qualifiers: Hypothyroidism type: unspecified Qualified Code(s): E03.9 - Hypothyroidism, unspecified
[2018-09-21] MEDS: Vitamin B Complex/Vit C/Vit E 1 EACH TABLET PO SCH (08:58)
[2018-09-21] MEDS: Folic Acid 1 MG TABLET PO SCH (08:58)
[2018-09-21] MEDS: Thiamine (B-1) 100 MG TABLET PO SCH (08:59)
[2018-09-21] MEDS: traMADol 50 MG TABLET PO PRN ×2 (10:42→19:50)
--- NOTE | 2018-09-21 10:50 | Nephrology Progress Note ---
Date of Encounter: 09/21/18 Time of Encounter: 12:00 - Assessment and Plan (1) TERRI (acute kidney injury) Current Visit: Yes Status: Acute SCr slightly improved at 2.76, GFR 18 after diuretics held and albumin UOP documented with judit at 1800cc in the past 24hrs (2) Right renal mass Current Visit: Yes Status: Acute (3) Liver cirrhosis Current Visit: Yes Status: Chronic Qualifiers: Hepatic cirrhosis type: alcoholic cirrhosis Ascites presence: with ascites Qualified Code(s): K70.31 - Alcoholic cirrhosis of liver with ascites (4) Alcoholism Current Visit: Yes Status: Resolved (5) Anemia Current Visit: Yes Status: Acute Qualifiers: Anemia type: unspecified type Qualified Code(s): D64.9 - Anemia, unspecified (6) Encephalopathy acute Current Visit: Yes Status: Acute Subjective Interval history: Pt seen and examined Objective - Vital Signs Vital signs: Vital Signs Temp Pulse Resp BP Pulse Ox 09/21/18 10:39 98.1 F 104 16 157/89 98 09/21/18 04:45 98 F 95 16 156/71 97 09/20/18 18:40 97.8 F 88 14 139/79 97 09/20/18 14:23 97.6 F 97 15 134/74 94 09/20/18 10:53 97.8 F 92 14 111/60 94 Intake and Output 09/20/18 09/21/18 09/21/18 23:59 07:59 15:59 Intake Total 480 / 480 360 / 360 Output Total 0 / 0 0 / 0 Balance 480 / 480 0 / 0 360 / 360 Intake: Oral 480 / 480 360 / 360 Output: Urine 0 / 0 0 / 0 Other: Meal Dinner Breakfast Percent of Meal Consumed 50% 50% # Voids 1 # Bowel Movements 0 0 0 - Lab 09/20/18 03:57 09/21/18 02:46 Most recent lab results Calcium 8.6 mg/dL (8.6-10.3) 09/21/18 02:46 Phosphorus 4.9 mg/dL (2.7-4.5) H 09/18/18 04:42 Magnesium 1.7 mg/dL (1.6-2.6) 09/18/18 04:42 Urine Creatinine 57 mg/dL 09/18/18 16:00 Urine Sodium 73.0 mEq/L 09/21/18 07:56 Consult Discharge Plan - Plan Referrals: Chris Berry MD [Partnered Physician] - 10/01/18 11:00 am
[2018-09-21] MEDS: Albumin 25% 25gram/100mL 25 GM/100 ML IV.SOLN IVC SCH ×2 (11:28→13:40)
[2018-09-21] MEDS: Lactulose Oral Soln 20 GM/30 ML UDC PO SCH ×2 (11:29→19:50)
[2018-09-21] MEDS: Artificial Tears SOLN 15 ML BOTTLE BOTH EYES SCH ×4 (11:29→19:53)
[2018-09-21] MEDS ORDERED: Albumin 25% 25gram/100mL 25 GM/100 ML IV.SOLN IVC SCH (13:30)
[2018-09-21] MEDS: *HR* OxyCODONE Immed Rel 5 MG TABLET PO PRN (16:22)
--- NOTE | 2018-09-22 07:46 | Internal Med Progress Note ---
Hospitalist Progress Note - Encounter Date of Encounter: 09/22/18 Time of Encounter: 07:45 - Subjective Interval History: No acute events overnight - Exam Vitals: Temp Pulse Resp BP Pulse Ox 98.1 F 98 14 162/93 98 09/22/18 06:25 09/22/18 06:25 09/22/18 06:25 09/22/18 06:25 09/22/18 06:25 Exam: General: Alert, follows directions, fatigued Cardiovascualr: Regular rate and rhythm with no murmur, absent gallops or rubs, bilateral 1+ pedal edema, radial pulses 2 out of 4 Lungs: Bilateral crackles, not in respiratory distress Abdomen: Soft nontender, distended positive bowel sounds, Skin: warm and dry, absent rash, absent open wounds and nodules MSK: absent clubbing, cyanosis, joints without swelling Neuro: alert to self, and place not situation or time Psych: Flat affect, calm, without anxiety. - Assessment and Plan (1) Acute kidney injury superimposed on CKD Current Visit: Yes Status: Acute Assessment and Plan: Pt has TERRI on CKD stage 3 possibly secondary to hepatorenal syndrome Kidney function is improving on albumin. Nephrology following creatinine continues to trend down. PT evaluation for discharge planning (2) Hepatic encephalopathy Current Visit: Yes Status: Acute Assessment and Plan: Pt developed acute hepatic encephalopathy during her hospital course Mental status is improving on lactulose and rifaximin (3) Liver cirrhosis Current Visit: Yes Status: Acute Assessment and Plan: Liver ultrasound shows cirrhotic morphology of the liver, moderate right quadrant ascites Currently holding Lasix and spironolactone as her serum creatinine increases underwent paracentesis: Fluid analysis negative for SBP. Neutrophil count is 92 Lactulose and rifaximin as above. Appreciate GI recommendations. (4) Upper GI bleed Current Visit: Yes Status: Acute Assessment and Plan: Patient on presentation was found to have a hemoglobin of 10.1 and follow-up revealed a hemoglobin of 7.2 She has received 2 units of packed red blood cells since admission She underwent EGD which showed grade 1 varices without any overt signs of bleedi ng and on colonoscopy she was found to have diverticulosis as well as angiodysplastic lesion which was cauterized Patient's hemoglobin has been stable since admission and she is hemodynamically stable We will continue omeprazole, nadolol. (5) Alcoholism Current Visit: Yes Status: Resolved Assessment and Plan: patient with no signs of alcohol withdrawal. will monitor clinically. (6) Acute exacerbation of chronic obstructive pulmonary disease (COPD) Current Visit: Yes Status: Resolved Assessment and Plan: No wheezing on auscultation. crackles. continue bronchodilators scheduled. On empiric antibiotics. incentive spirometry (7) Hypertension Current Visit: Yes Status: Chronic Assessment and Plan: Continue hydralazine. Diuretics on hold due to kidney function (8) Hyperkalemia Current Visit: Yes Status: Resolved Assessment and Plan: Resolved (9) Hypothyroidism Current Visit: Yes Status: Chronic Assessment and Plan: continue levothyroxine 175 mcg/po daily (10) Hyponatremia Current Visit: Yes Status: Resolved Assessment and Plan: resolved DVT Prophylaxis: SCD - Time Spent with Patient Total time spent is greater than 50% in coordination of care (as documented) at patient's floor/unit and/or counseling patient: Internal Medicine: Result - Labs CBC & Chem 7: 09/22/18 08:17 09/22/18 08:17 - ABG Interpretation ABG results: PT/INR, D-dimer PT 15.9 Seconds (9.4-12.1) H 09/13/18 22:22 Consult Discharge Plan - Plan Referrals: Chris Berry MD [Partnered Physician] - 10/01/18 11:00 am (3) Liver cirrhosis Qualifiers: Hepatic cirrhosis type: alcoholic cirrhosis Ascites presence: with ascites Qualified Code(s): K70.31 - Alcoholic cirrhosis of liver with ascites (7) Hypertension Qualifiers: Hypertension type: essential hypertension Qualified Code(s): I10 - Essential (primary) hypertension (9) Hypothyroidism Qualifiers: Hypothyroidism type: unspecified Qualified Code(s): E03.9 - Hypothyroidism, unspecified
[2018-09-22 09:32] LABS: Hemoglobin 9.8 g/dL (11.5-15.4); Immature Granulocytes % 0.5 % (0-4); Mean Platelet Volume 10.1 fL (9.4-12.4); Red Cell Distribution Width 15.9 % (11.5-14.5)
[2018-09-22 09:34] LABS: Basophils % 0.8 %; Eosinophils # 0.1 K/mcL (0.0-0.6); Eosinophils % 3.1 %; Hematocrit 31.8 % (35.3-44.9); Immature Platelets 2.7 % (1.1-6.1); Lymphocytes # 0.5 K/mcL (0.6-4.6); Lymphocytes % 11.9 %; Mean Corpuscular HGB Conc 30.8 g/dL (31.6-35.5); Mean Corpuscular Hemoglobin 28.3 pg (28.0-33.3); Mean Corpuscular Volume 91.9 fL (83.0-100.0); Monocytes # 0.6 K/mcL (0.0-1.3); Monocytes % 15.3 %; Platelet Count 68 K/mcL (140-400); Red Blood Count 3.46 M/mcL (3.82-4.97); Segmented Neutrophils % 68.4 %
[2018-09-22 09:35] LABS: Neutrophils # 2.7 K/mcL (1.6-8.9)
[2018-09-22] MEDS: Folic Acid 1 MG TABLET PO SCH (09:36)
[2018-09-22] MEDS: Vitamin B Complex/Vit C/Vit E 1 EACH TABLET PO SCH (09:36)
[2018-09-22] MEDS: Thiamine (B-1) 100 MG TABLET PO SCH (09:36)
[2018-09-22] MEDS: hydrALAZINE 25 MG TABLET PO SCH ×2 (09:36→17:01)
[2018-09-22] MEDS: Artificial Tears SOLN 15 ML BOTTLE BOTH EYES SCH ×4 (09:36→20:57)
[2018-09-22] MEDS: Lactulose Oral Soln 20 GM/30 ML UDC PO SCH ×2 (09:36→20:57)
[2018-09-22 09:46] LABS: Albumin 3.2 g/dL (3.5-5.7); Albumin/Globulin Ratio 1.2 (1.1-2.2); Bilirubin,Total 0.8 mg/dL (0.3-1.0); Globulin 2.7 g/dL (2.4-3.5); Potassium 4.7 mEq/L (3.5-5.1); Total Protein 5.9 g/dL (6.4-8.9)
[2018-09-22] MEDS: *HR* OxyCODONE Immed Rel 5 MG TABLET PO PRN (11:08)
[2018-09-22] MEDS ORDERED: Albumin 25% 25gram/100mL 25 GM/100 ML IV.SOLN IVPB ONE (13:44)
[2018-09-22] MEDS: amLODIPine 5 MG TABLET PO SCH (14:37)
--- NOTE | 2018-09-22 18:29 | Nephrology Progress Note ---
Date of Encounter: 09/22/18 Time of Encounter: 15:00 - Assessment and Plan (1) TERRI (acute kidney injury) Current Visit: Yes Status: Acute SCr slightly improved at 2.59, GFR 19 on albumin prn UOP documented at 0 in the past 24hrs, likely inaccurate Continue to avoid nephrotoxins if possible (2) Right renal mass Current Visit: Yes Status: Acute Will need further imaging once TERRI resolves (3) Liver cirrhosis Current Visit: Yes Status: Acute Per primary team Qualifiers: Hepatic cirrhosis type: alcoholic cirrhosis Ascites presence: with ascites Qualified Code(s): K70.31 - Alcoholic cirrhosis of liver with ascites (4) Alcoholism Current Visit: Yes Status: Resolved (5) Anemia Current Visit: Yes Status: Acute Hgb noted at 9.8, will monitor Qualifiers: Anemia type: unspecified type Qualified Code(s): D64.9 - Anemia, unspecified (6) Encephalopathy acute Current Visit: Yes Status: Acute Subjective Interval history: Pt seen and examined resting comfortably. Per nurse, pt complained off flank paina nd received narcotic and became more somnlent requiring narcan Objective - Vital Signs Vital signs: Vital Signs Temp Pulse Resp BP Pulse Ox 09/22/18 16:25 97.4 F L 81 15 151/79 98 09/22/18 12:25 97.8 F 94 12 180/97 99 09/22/18 10:40 98.0 F 105 16 180/85 95 09/22/18 06:25 98.1 F 98 14 162/93 98 09/22/18 04:35 97.6 F 96 16 172/88 99 09/21/18 22:57 98.2 F 96 14 166/75 97 09/21/18 20:54 157/86 09/21/18 19:44 97.4 F L 114 20 190/96 95 Intake and Output 09/22/18 09/22/18 09/22/18 07:59 15:59 23:59 Intake Total 360 / 360 100 / 100 Output Total 0 / 0 200 / 200 Balance 0 / 0 160 / 160 100 / 100 Intake: IV Fluids 100 / 100 Flexbumin 25 gm In 100 ml @ 60 100 / 100 mls/hr IVPB ONCE ONE Rx#: [id number] Oral 360 / 360 Output: Urine 0 / 0 200 / 200 Other: Meal Breakfast Percent of Meal Consumed 90% Stool Size Moderate Stool Consistency soft formed Stool Color Brown # Bowel Movements 0 1 Weight 69 kg Patient Weight 09/22/18 23:59 Weight 69 kg - General Appearance General appearance: Present: chronically ill, fatigue EENT: Present: ATNC, mucous membranes moist Neck: Present: no JVD, supple Additional Comments: Good areation ant bilat Cardiology: Present: edema, normal S1, normal S2 Gastrointestinal: Present: no tenderness, no guarding, distended Integumentary: Present: warm and dry Neurologic: Present: no focal deficit Musculoskeletal: Present: no deformities Psychiatric: Present: cooperative - Lab 09/22/18 08:17 09/22/18 08:17 Most recent lab results Calcium 9.0 mg/dL (8.6-10.3) 09/22/18 08:17 Phosphorus 4.9 mg/dL (2.7-4.5) H 09/18/18 04:42 Magnesium 1.7 mg/dL (1.6-2.6) 09/18/18 04:42 Urine Creatinine 57 mg/dL 09/18/18 16:00 Urine Sodium 73.0 mEq/L 09/21/18 07:56 Consult Discharge Plan - Plan Referrals: Chris Berry MD [Partnered Physician] - 10/01/18 11:00 am
[2018-09-23] MEDS: traMADol 50 MG TABLET PO PRN ×2 (00:54→12:40)
[2018-09-23] MEDS: hydrALAZINE 25 MG TABLET PO SCH ×3 (00:54→16:08)
[2018-09-23 05:01] LABS: Immature Granulocytes % 0.6 % (0-4)
[2018-09-23 05:03] LABS: Basophils % 0.3 %; Eosinophils # 0.1 K/mcL (0.0-0.6); Eosinophils % 2.2 %; Hematocrit 28.9 % (35.3-44.9); Hemoglobin 9.2 g/dL (11.5-15.4); Immature Platelets 1.3 % (1.1-6.1); Lymphocytes # 0.4 K/mcL (0.6-4.6); Lymphocytes % 9.7 %; Mean Corpuscular HGB Conc 31.8 g/dL (31.6-35.5); Mean Corpuscular Volume 91.2 fL (83.0-100.0); Mean Platelet Volume 8.5 fL (9.4-12.4); Monocytes # 0.5 K/mcL (0.0-1.3); Monocytes % 13.8 %; Red Blood Count 3.17 M/mcL (3.82-4.97); Red Cell Distribution Width 15.8 % (11.5-14.5); Segmented Neutrophils % 73.4 %
[2018-09-23 05:11] LABS: Neutrophils # 2.6 K/mcL (1.6-8.9); Platelet Count 63 K/mcL (140-400)
[2018-09-23 05:12] LABS: Platelet Estimate Marked Decrease (Normal)
[2018-09-23 05:20] LABS: Magnesium 1.5 mg/dL (1.6-2.6); Potassium 4.6 mEq/L (3.5-5.1)
--- NOTE | 2018-09-23 07:56 | Discharge Summary ---
Date of Encounter: 09/23/18 Time of Encounter: 13:00 - Discharge Diagnosis (1) Hepatic encephalopathy Priority: Primary Status: Acute Assessment and Plan: 52 year old female who presents in transfer from [facility] for concerns of GI/variceal bleed. She was admitted there overnight last night for concerns of symptomatic anemia, weakness, cough, COPD flareup, and hyponatremia. She was found to be anemic with a hemoglobin of 10.1 yesterday and then follow-up testing today revealed hemoglobin of 7.2. Patient, herself, denies any hematemesis, melena, or hematochezia. I cannot find any documentat ion in the transfer records of any gross blood loss per nursing and/or transfer notes. However, there is a 3 g hemoglobin drop. I reviewed old records and note that she has known esophageal varices. Her last endoscopy here was 2 years ago in May,. At that time, she underwent variceal banding by Dr. Kelsey. She was assessed with acute GI bleed possibly secondary to hemorrhoids vs varic es. Hemoglobin was low at 7.2 on arrival and she was transfused 2 units of PRBC. She had an upper endoscopy and a colonoscopy done showing non bleeding varices, hemorrhoids and angidysplasia which was cauterized. She was noted to be more somnolent after her procedures and was assessed to be in acute hepatic encephalopathy for which she was started on lactulose and rifaximin She had worsening abdominal distention with ascites and had a paracentesis done. Fluid was not positive for SBP. She also had worsening renal function which was likely secondary to hepatorenal syndrome. Lasix and spirnolactone were held and she was started on albumin boluses with improvement in her renal function. She is still weak and lethargic but has advanced liver disease and will likely need quite some time to recover. PT saw her and recommended rehab but patient is declining. We are contacting family to make sure she has someone to take care of her, because I think it would be unsafe to discharge her home by herself otherwise. We have discontinued spironolactone and lasix on discharge due to her kidney function and she will require a close outpatient follow up. 35 minutes was spent discharging this patient (2) Acute kidney injury superimposed on CKD Priority: Primary Status: Acute Assessment and Plan: Pt has TERRI on CKD stage 3 possibly secondary to hepatorenal syndrome Kidney function is improving on albumin. Nephrology following creatinine continues to trend down. PT evaluation for discharge planning (3) Liver cirrhosis Priority: Primary Status: Acute Assessment and Plan: Liver ultrasound shows cirrhotic morphology of the liver, moderate right quadrant ascites Currently holding Lasix and spironolactone as her serum creatinine increases underwent paracentesis: Fluid analysis negative for SBP. Neutrophil count is 92 Lactulose and rifaximin as above. Appreciate GI recommendations. Qualifiers: Hepatic cirrhosis type: alcoholic cirrhosis Ascites presence: with ascites Qualified Code(s): K70.31 - Alcoholic cirrhosis of liver with ascites (4) Upper GI bleed Priority: Primary Status: Acute (5) Alcoholism Priority: Primary Status: Resolved (6) Acute exacerbation of chronic obstructive pulmonary disease (COPD) Priority: Primary Status: Resolved (7) Hypertension Priority: Primary Status: Chronic Qualifiers: Hypertension type: essential hypertension Qualified Code(s): I10 - Essential (primary) hypertension (8) Hyperkalemia Priority: Primary Status: Resolved (9) Hypothyroidism Priority: Primary Status: Chronic Qualifiers: Hypothyroidism type: unspecified Qualified Code(s): E03.9 - Hypothyroidism, unspecified (10) Hyponatremia Priority: Primary Status: Resolved Hospital course: Ms. Alexander is a 52 year old female - Time Spent with Patient Total time spent providing and/or coordinating discharge services: - Discharge Medications Prescriptions: New Rifaximin [Xifaxan] 200 mg PO BID #60 tablet Lactulose 30 gm PO BID #60 udc Folic Acid 1 mg PO DAILY #30 tablet Thiamine (B-1) [Vitamin B-1] 100 mg PO DAILY #30 tablet Vitamin B Complex/Vit C/Vit E [Stresstab] 1 each PO DAILY #30 tablet amLODIPine [Norvasc] 5 mg PO DAILY #60 tablet Continue Levothyroxine [Synthroid] 175 mcg PO DAILY Iron Polysaccharide Complex [Ferrex 150] 150 mg PO DAILY Omeprazole [PriLOSEC] 20 mg PO DAILY Potassium Chloride [K-Tab ER] 20 meq PO DAILY Albuterol Sulfate [Albuterol Inhaler] 2 puff IH Q4HR PRN PRN Reason: Shortness Of Breath Hydralazine HCl 50 mg PO TID Nadolol 20 mg PO DAILY Trazodone HCl 50 mg PO HS Discontinued Furosemide [Lasix] 20 mg PO BID PRN PRN Reason: Edema Gabapentin [Neurontin] 300 mg PO BID Lisinopril [Zestril] 20 mg PO DAILY Doxycycline 100 mg PO BID Oxycodone HCl 5 mg PO Q8H PRN PRN Reason: Pain Spironolactone 25 mg PO DAILY Home Medications: Iron Polysaccharide Complex [Ferrex 150] 150 mg PO DAILY 05/30/16 [History] Levothyroxine [Synthroid] 175 mcg PO DAILY 05/30/16 [History] Omeprazole [PriLOSEC] 20 mg PO DAILY 05/30/16 [History] Potassium Chloride [K-Tab ER] 20 meq PO DAILY 05/30/16 [History] Albuterol Sulfate [Albuterol Inhaler] 2 puff IH Q4HR PRN 09/13/18 [History] Hydralazine HCl 50 mg PO TID 09/13/18 [History] Nadolol 20 mg PO DAILY 09/13/18 [History] Trazodone HCl 50 mg PO HS 09/13/18 [History] Folic Acid 1 mg PO DAILY #30 tablet 09/23/18 [Rx] Lactulose 30 gm PO BID #60 udc 09/23/18 [Rx] Rifaximin [Xifaxan] 200 mg PO BID #60 tablet 09/23/18 [Rx] Thiamine (B-1) [Vitamin B-1] 100 mg PO DAILY #30 tablet 09/23/18 [Rx] Vitamin B Complex/Vit C/Vit E [Stresstab] 1 each PO DAILY #30 tablet 09/23/18 [Rx] amLODIPine [Norvasc] 5 mg PO DAILY #60 tablet 09/23/18 [Rx] Allergies/Adverse Reactions: Allergy/AdvReac Type Severity Reaction Status Date / Time No Known Allergies Allergy Verified 09/13/18 19:34 Date of admission: 09/13/18 21:42 Primary care physician: PCP NONE Consults: 09/13/18 21:45 Consult to Physician [CONS] Routine Consulting Provider: Kimber Kelsey Reason for Consult: GI bleed Time Notified: 20:45 Call Completed: Yes 09/18/18 16:34 Consult to Interventional Radiology [CONS] Routine Consulting Provider: Radiology Interventional Cols Reason for Consult: paracentesis Call Completed: No 09/19/18 08:10 Consult to Cryogenics Repairer [CONS] Routine Reason for SW Consult: Alcoholism, please provide resources. 09/19/18 08:12 Consult to Nephrology [CONS] Routine Consulting Provider: [facility]/FREDY/CHARLES/ADDY Reason for Consult: terri in setting of decompensated liver disease query hepatorenal syndrome Call Completed: No 09/20/18 09:49 Consult to Occupational Therapy [CONS] Routine Comment: Evaluate, develop and implement POC Reason for Consult: Physical deconditioning Does patient have active BEDREST order?: Yes Is patient medically & hemodynamically stable?: No Patient assessed for mobility or mobilized this visit?: No Consult to Physical Therapy [CONS] Routine Comment: Evaluate, develop and implement POC Reason for Consult: Physical deconditioning Does patient have active BEDREST order?: No Is patient medically & hemodynamically stable?: Yes 09/22/18 12:11 Consult to Palliative Care [CONS] Routine Comment: Consulting Provider: Palliative Care [facility] Reason for Consult: endstage liver disease goals of care Call Completed: No - Constitutional Vitals: Temp Pulse Resp BP Pulse Ox 97.9 F 100 14 179/100 95 09/23/18 07:47 09/23/18 07:47 09/23/18 07:47 09/23/18 07:47 09/23/18 07:47 General appearance: Present: disheveled, A&O X 3, no acute distress, answers questions appropriately Exam: General: Alert, follows directions, fatigued Cardiovascualr: Regular rate and rhythm with no murmur, absent gallops or rubs, bilateral 1+ pedal edema, radial pulses 2 out of 4 Lungs: Bilateral crackles, not in respiratory distress Abdomen: Soft nontender, distended positive bowel sounds, Skin: warm and dry, absent rash, absent open wounds and nodules MSK: absent clubbing, cyanosis, joints without swelling Neuro: alert to self, and place not situation or time Psych: Flat affect, calm, without anxiety. - Patient Status Disposition: Home Health Service Condition: Fair - Discharge Instructions Follow Up With: Chris Berry MD [Partnered Physician] - 10/01/18 11:00 am
[2018-09-23] MEDS: Lactulose Oral Soln 20 GM/30 ML UDC PO SCH (10:15)
[2018-09-23] MEDS: Folic Acid 1 MG TABLET PO SCH (10:17)
[2018-09-23] MEDS: Vitamin B Complex/Vit C/Vit E 1 EACH TABLET PO SCH (10:17)
[2018-09-23] MEDS: Thiamine (B-1) 100 MG TABLET PO SCH (10:17)
[2018-09-23] MEDS: amLODIPine 5 MG TABLET PO SCH (10:18)
[2018-09-23] MEDS: Artificial Tears SOLN 15 ML BOTTLE BOTH EYES SCH ×3 (10:36→16:13)
[2018-09-23] MEDS: Piperacillin/Tazobactam 3.375 GM in 0.9 % Sodium Chloride Mini Bag 100 ML IVPB SCH (19:29)
[2018-09-24] MEDS: Lactulose Oral Soln 20 GM/30 ML UDC PO SCH ×3 (03:20→19:55)
[2018-09-24] MEDS: Artificial Tears SOLN 15 ML BOTTLE BOTH EYES SCH ×5 (03:20→20:02)
[2018-09-24] MEDS: hydrALAZINE 25 MG TABLET PO SCH ×4 (03:21→23:28)
[2018-09-24] MEDS: Piperacillin/Tazobactam 3.375 GM in 0.9 % Sodium Chloride Mini Bag 100 ML IVPB SCH ×3 (03:26→17:20)
[2018-09-24 04:13] LABS: Basophils % 0.5 %; Immature Granulocytes % 0.7 % (0-4); Mean Corpuscular Hemoglobin 28.7 pg (28.0-33.3)
[2018-09-24 04:15] LABS: Eosinophils # 0.2 K/mcL (0.0-0.6); Eosinophils % 3.4 %; Hematocrit 28.4 % (35.3-44.9); Hemoglobin 9.1 g/dL (11.5-15.4); Immature Platelets 1.4 % (1.1-6.1); Lymphocytes # 0.5 K/mcL (0.6-4.6); Lymphocytes % 10.4 %; Mean Corpuscular Volume 89.6 fL (83.0-100.0); Mean Platelet Volume 9.3 fL (9.4-12.4); Monocytes # 0.7 K/mcL (0.0-1.3); Monocytes % 14.7 %; Neutrophils # 3.1 K/mcL (1.6-8.9); Red Blood Count 3.17 M/mcL (3.82-4.97); Red Cell Distribution Width 15.9 % (11.5-14.5); Segmented Neutrophils % 70.3 %
[2018-09-24 04:18] LABS: Platelet Count 73 K/mcL (140-400)
[2018-09-24 04:28] LABS: Calcium 9.1 mg/dL (8.6-10.3); Magnesium 1.7 mg/dL (1.6-2.6); Phosphorous 3.4 mg/dL (2.7-4.5); Potassium 4.6 mEq/L (3.5-5.1)
--- NOTE | 2018-09-24 07:40 | Internal Med Progress Note ---
Hospitalist Progress Note - Encounter Date of Encounter: 09/24/18 Time of Encounter: 07:30 - Subjective Interval History: No acute events overnight. Had cxr done showing pneumonia - Exam Vitals: Temp Pulse Resp BP Pulse Ox 98.3 F 99 17 142/75 94 09/24/18 04:53 09/24/18 04:53 09/24/18 04:53 09/24/18 04:53 09/24/18 04:53 Exam: General: Alert, follows directions, fatigued Cardiovascualr: Regular rate and rhythm with no murmur, absent gallops or rubs, bilateral 1+ pedal edema, radial pulses 2 out of 4 Lungs: Bilateral crackles, not in respiratory distress Abdomen: Soft nontender, distended positive bowel sounds, Skin: warm and dry, absent rash, absent open wounds and nodules MSK: absent clubbing, cyanosis, joints without swelling Neuro: alert to self, and place not situation or time Psych: Flat affect, calm, without anxiety. - Assessment and Plan (1) Hospital acquired PNA Current Visit: Yes Status: Acute Assessment and Plan: Pt has persistent lethargy with acute metabolic encephalopathy thought secondary to decompensated liver disease and has had a prolonged recovery on rifaximin and lactulose with intermittent confusion CXR yesterday showed new left lobe pneumonia. Started on zosyn. Obtain blood cultures Improving this am (2) Hepatic encephalopathy Current Visit: Yes Status: Acute Assessment and Plan: 52 year old female who presents in transfer from [facility] for concerns of GI/variceal bleed. She was admitted there overnight last night for concerns of symptomatic anemia, weakness, cough, COPD flareup, and hyponatremia. She was found to be anemic with a hemoglobin of 10.1 yesterday and then follow-up testing today revealed hemoglobin of 7.2. Patient, herself, denies any hematemesis, melena, or hematochezia. I cannot find any documentation in the transfer records of any gross blood loss per nursing and/or transfer notes. However, there is a 3 g hemoglobin drop. I reviewed old records and note that she has known esophageal varices. Her last endoscopy here was 2 years ago in May,. At that time, she underwent variceal banding by Dr. Kelsey. She was assessed with acute GI bleed possibly secondary to hemorrhoids vs varices. Hemoglobin was low at 7.2 on arrival and she was transfused 2 units of PRBC. She had an upper endoscopy and a colonoscopy done showing non bleeding varices, hemorrhoids and angidysplasia which was cauterized. She was noted to be more somnolent after her procedures and was assessed to be in acute hepatic encephalopathy for which she was started on lactulose and rifaximin She had worsening abdominal distention with ascites and had a paracentesis done. Fluid was not positive for SBP. She also had worsening renal function which was likely secondary to hepatorenal syndrome. Lasix and spirnolactone were held and she was started on albumin boluses with improvement in her renal function. She is still weak and lethargic but has advanced liver disease and will likely need quite some time to recover. Patient will be placed in rehab. Will plan to complete course of zosyn for hospital acquired pneumonia prior to discharge (3) Acute kidney injury superimposed on CKD Current Visit: Yes Status: Acute Assessment and Plan: Pt has TERRI on CKD stage 3 possibly secondary to hepatorenal syndrome Kidney function is improving on albumin. Nephrology following creatinine continues to trend down. PT evaluation for discharge planning (4) Liver cirrhosis Current Visit: Yes Status: Acute Assessment and Plan: Liver ultrasound shows cirrhotic morphology of the liver, moderate right quadrant ascites Currently holding Lasix and spironolactone as her serum creatinine increases underwent paracentesis: Fluid analysis negative for SBP. Neutrophil count is 92 Lactulose and rifaximin as above. Appreciate GI recommendations. (5) Upper GI bleed Current Visit: Yes Status: Acute Assessment and Plan: Patient on presentation was found to have a hemoglobin of 10.1 and follow-up re vealed a hemoglobin of 7.2 She has received 2 units of packed red blood cells since admission She underwent EGD which showed grade 1 varices without any overt signs of bleeding and on colonoscopy she was found to have diverticulosis as well as angiodysplastic lesion which was cauterized Patient's hemoglobin has been stable since admission and she is hemodynamically stable We will continue omeprazole, nadolol. (6) Alcoholism Current Visit: Yes Status: Resolved Assessment and Plan: patient with no signs of alcohol withdrawal. will monitor clinically. (7) Acute exacerbation of chronic obstructive pulmonary disease (COPD) Current Visit: Yes Status: Resolved Assessment and Plan: No wheezing on auscultation. crackles. continue bronchodilators scheduled. On empiric antibiotics. incentive spirometry (8) Hypertension Current Visit: Yes Status: Chronic Assessment and Plan: Continue hydralazine. Diuretics on hold due to kidney function (9) Hyperkalemia Current Visit: Yes Status: Resolved Assessment and Plan: Resolved (10) Hypothyroidism Current Visit: Yes Status: Chronic Assessment and Plan: continue levothyroxine 175 mcg/po daily (11) Hyponatremia Current Visit: Yes Status: Resolved Assessment and Plan: resolved DVT Prophylaxis: SCD - Time Spent with Patient Total time spent is greater than 50% in coordination of care (as documented) at patient's floor/unit and/or counseling patient: Internal Medicine: Result - Labs CBC & Chem 7: 09/24/18 04:02 09/24/18 04:02 Labs: Short CBC 09/24/18 Range/Units 04:02 WBC 4.4 (4.3-11.1) K/mcL Hgb 9.1 L (11.5-15.4) g/dL Hct 28.4 L (35.3-44.9) % Plt Count 73 L (140-400) K/mcL Neutrophils # 3.1 (1.6-8.9) K/mcL BMP 09/24/18 04:02 Sodium 143 Potassium 4.6 Chloride 118 H Carbon Dioxide 19 L BUN 34 H Creatinine 2.16 H Glucose 110 H Calcium 9.1 - ABG Interpretation ABG results: PT/INR, D-dimer PT 15.9 Seconds (9.4-12.1) H 09/13/18 22:22 - Impressions Impressions Chest X-Ray 09/23/18 14:04 IMPRESSION: Left lower lobe opacification suggesting pneumonia The findings were sent to the Radiology Results Communication Center at 4:04 pm on 09/23/2018to be communicated to a licensed caregiver. D/ / Anders Tolbert MD / Anders Tolbert MD Interpreting Provider: Anders Tolbert MD Head CT 09/23/18 17:02 IMPRESSION: No acute intracranial abnormality. D/ / Anders Tolbert MD / Anders Tolbert MD Interpreting Provider: Anders Tolbert MD Consult Discharge Plan - Plan Referrals: Chris Berry MD [Partnered Physician] - 10/01/18 11:00 am Prescriptions: amLODIPine [Norvasc] 5 mg PO DAILY #60 tablet Folic Acid 1 mg PO DAILY #30 tablet Lactulose 30 gm PO BID #60 udc Rifaximin [Xifaxan] 200 mg PO BID #60 tablet Thiamine (B-1) [Vitamin B-1] 100 mg PO DAILY #30 tablet Vitamin B Complex/Vit C/Vit E [Stresstab] 1 each PO DAILY #30 tablet (4) Liver cirrhosis Qualifiers: Hepatic cirrhosis type: alcoholic cirrhosis Ascites presence: with ascites Qualified Code(s): K70.31 - Alcoholic cirrhosis of liver with ascites (8) Hypertension Qualifiers: Hypertension type: essential hypertension Qualified Code(s): I10 - Essential (primary) hypertension (10) Hypothyroidism Qualifiers: Hypothyroidism type: unspecified Qualified Code(s): E03.9 - Hypothyroidism, unspecified
[2018-09-24] MEDS: amLODIPine 5 MG TABLET PO SCH (08:12)
[2018-09-24] MEDS: Folic Acid 1 MG TABLET PO SCH (08:12)
[2018-09-24] MEDS: Thiamine (B-1) 100 MG TABLET PO SCH (08:12)
[2018-09-24] MEDS: Vitamin B Complex/Vit C/Vit E 1 EACH TABLET PO SCH (08:12)
[2018-09-24] MEDS: traMADol 50 MG TABLET PO PRN ×2 (10:49→19:55)
[2018-09-24] MEDS ORDERED: Piperacillin/Tazobactam 3.375 GM in 0.9 % Sodium Chloride Mini Bag 100 ML IVPB SCH (16:31)
[2018-09-25] MEDS: Piperacillin/Tazobactam 3.375 GM in 0.9 % Sodium Chloride Mini Bag 100 ML IVPB SCH ×3 (01:43→19:24)
[2018-09-25] MEDS: traMADol 50 MG TABLET PO PRN ×2 (03:25→11:06)
[2018-09-25 06:23] LABS: Mean Platelet Volume 9.5 fL (9.4-12.4)
[2018-09-25 06:25] LABS: Basophils % 0.4 %; Eosinophils # 0.2 K/mcL (0.0-0.6); Eosinophils % 3.9 %; Hematocrit 33.2 % (35.3-44.9); Hemoglobin 10.6 g/dL (11.5-15.4); Immature Granulocytes % 0.9 % (0-4); Immature Platelets 2.1 % (1.1-6.1); Lymphocytes # 0.5 K/mcL (0.6-4.6); Mean Corpuscular HGB Conc 31.9 g/dL (31.6-35.5); Mean Corpuscular Hemoglobin 28.9 pg (28.0-33.3); Mean Corpuscular Volume 90.5 fL (83.0-100.0); Monocytes # 0.6 K/mcL (0.0-1.3); Monocytes % 11.2 %; Neutrophils # 4.3 K/mcL (1.6-8.9); Platelet Count 80 K/mcL (140-400); Red Blood Count 3.67 M/mcL (3.82-4.97); Segmented Neutrophils % 74.6 %
[2018-09-25 06:45] LABS: Calcium 9.4 mg/dL (8.6-10.3); Magnesium 1.5 mg/dL (1.6-2.6); Phosphorous 3.4 mg/dL (2.7-4.5); Potassium 4.8 mEq/L (3.5-5.1)
[2018-09-25] MEDS: Lactulose Oral Soln 20 GM/30 ML UDC PO SCH ×2 (07:44→21:26)
[2018-09-25] MEDS: amLODIPine 5 MG TABLET PO SCH (07:44)
[2018-09-25] MEDS: hydrALAZINE 25 MG TABLET PO SCH ×3 (07:45→23:51)
[2018-09-25] MEDS: Artificial Tears SOLN 15 ML BOTTLE BOTH EYES SCH ×4 (07:46→21:26)
[2018-09-25] MEDS: Vitamin B Complex/Vit C/Vit E 1 EACH TABLET PO SCH (07:46)
[2018-09-25] MEDS: Thiamine (B-1) 100 MG TABLET PO SCH (07:46)
[2018-09-25] MEDS: Folic Acid 1 MG TABLET PO SCH (07:46)
--- NOTE | 2018-09-25 08:26 | Internal Med Progress Note ---
Hospitalist Progress Note - Encounter Date of Encounter: 09/25/18 Time of Encounter: 11:00 - Subjective Interval History: awake, alert, oriented to persona nd hospital name, confused as to city and year. fidgeting in bed, itching arms. no family at bedside. has chronic low back pain and stating back hurts. Discussed with RN. will trial IV benadryl as she can't safely take oral vistaril at this time. Will be holding further tramadol given her mentation this morning. Lidocain patch ordered for back pain. Pharmacist part of discussion and aware of changes - Exam Vitals: Temp Pulse Resp BP Pulse Ox 97.9 F 83 17 185/93 96 09/25/18 06:15 09/25/18 06:15 09/25/18 06:15 09/25/18 06:15 09/25/18 06:15 Exam: General: awake, alert but confused, appears stated age HEENT:EOM intact, pupils equal, round, dry mucus membranes Cardiovascular:regular rate and rhythm, normal S1 & S2, no rubs, murmurs or gallops. no lower extremity edema Lungs:Normal breath sounds, no wheezes, or crackles. Normal respiratory effort Abdomen:Soft, no apparent tenderness, non-distended, no rigidity, + bowel sounds Neurological: AAOxperson, place, not situation or time, CN grossly intact, no focal deficits Skin:no pallor, + numerous ecchymotic areas on bl arms,excoriations from itching - Assessment and Plan (1) Upper GI bleed Current Visit: Yes Status: Acute Assessment and Plan: Patient on presentation was found to have a hemoglobin of 10.1 and follow-up revealed a hemoglobin of 7.2 She has received 2 units of packed red blood cells She underwent EGD which showed grade 1 varices without any overt signs of bleeding and on colonoscopy she was found to have diverticulosis as well as angiodysplastic lesion which was cauterized Patient's hemoglobin has been stable since admission and she is hemodynamically stable - continue omeprazole, nadolol. (2) Alcoholism Current Visit: Yes Status: Resolved Assessment and Plan: patient with no signs of alcohol withdrawal. she is outside the window for withdrawal (3) Acute exacerbation of chronic obstructive pulmonary disease (COPD) Current Visit: Yes Status: Resolved Assessment and Plan: No wheezing on auscultation. crackles. continue bronchodilators scheduled. On empiric antibiotics. incentive spirometry (4) Hypertension Current Visit: Yes Status: Chronic Assessment and Plan: Continue hydralazine PO also has prn hydralazine ordered Diuretics on hold due to kidney function -will likely increase hydralazine dosing tomorrow if no improvement (5) Liver cirrhosis Current Visit: Yes Status: Acute Assessment and Plan: Liver ultrasound shows cirrhotic morphology of the liver, moderate right quadrant ascites Currently holding Lasix and spironolactone due to kidney function underwent paracentesis: Fluid analysis negative for SBP. Neutrophil count is 92 Lactulose and rifaximin as above. bms at goal currently Appreciate GI recommendations. avoid opiates and other sedating medications (6) Hypothyroidism Current Visit: Yes Status: Chronic Assessment and Plan: continue levothyroxine (7) Hepatic encephalopathy Current Visit: Yes Status: Acute (8) Acute kidney injury superimposed on CKD Current Visit: Yes Status: Acute Assessment and Plan: Pt has TERRI on CKD stage 3 possibly secondary to hepatorenal syndrome Kidney function is improved on albumin. -Nephrology following -will fu with them if pt not seen in follow up today as I see she was last seen 09/22 (9) Hospital acquired PNA Current Visit: Yes Status: Acute Assessment and Plan: Pt has persistent lethargy with acute metabolic encephalopathy thought secondary to decompensated liver disease and has had a prolonged recovery on rifaximin and lactulose with intermittent confusion CXR showed new left lobe pneumonia. -cont zosyn -attempt to ID organism -bl cxs ngtd (10) Hypomagnesemia Current Visit: Yes Status: Acute Assessment and Plan: IV repletion today DVT Prophylaxis: scds only - Time Spent with Patient Total time spent is greater than 50% in coordination of care (as documented) at patient's floor/unit and/or counseling patient: less than 15 minutes Plan of Care Discussed with: nurse Internal Medicine: Result - Labs CBC & Chem 7: 09/25/18 05:35 09/25/18 05:35 Labs: Short CBC 09/25/18 Range/Units 05:35 WBC 5.7 (4.3-11.1) K/mcL Hgb 10.6 L D (11.5-15.4) g/dL Hct 33.2 L (35.3-44.9) % Plt Count 80 L (140-400) K/mcL Neutrophils # 4.3 (1.6-8.9) K/mcL BMP 09/25/18 05:35 Sodium 145 Potassium 4.8 Chloride 115 H Carbon Dioxide 20 L BUN 34 H Creatinine 2.22 H Glucose 84 Calcium 9.4 - ABG Interpretation ABG results: PT/INR, D-dimer PT 15.9 Seconds (9.4-12.1) H 09/13/18 22:22 Consult Discharge Plan - Plan Referrals: Chris Berry MD [Partnered Physician] - 10/01/18 11:00 am Prescriptions: amLODIPine [Norvasc] 5 mg PO DAILY #60 tablet Folic Acid 1 mg PO DAILY #30 tablet Lactulose 30 gm PO BID #60 udc Rifaximin [Xifaxan] 200 mg PO BID #60 tablet Thiamine (B-1) [Vitamin B-1] 100 mg PO DAILY #30 tablet Vitamin B Complex/Vit C/Vit E [Stresstab] 1 each PO DAILY #30 tablet (4) Hypertension Qualifiers: Hypertension type: essential hypertension Qualified Code(s): I10 - Essential (primary) hypertension (5) Liver cirrhosis Qualifiers: Hepatic cirrhosis type: alcoholic cirrhosis Ascites presence: with ascites Qualified Code(s): K70.31 - Alcoholic cirrhosis of liver with ascites (6) Hypothyroidism Qualifiers: Hypothyroidism type: unspecified Qualified Code(s): E03.9 - Hypothyroidism, unspecified
[2018-09-26] MEDS: Piperacillin/Tazobactam 3.375 GM in 0.9 % Sodium Chloride Mini Bag 100 ML IVPB SCH ×2 (02:51→09:33)
[2018-09-26] MEDS: Chloraseptic Spray 177 ML BOTTLE MM PRN ×2 (04:06→09:33)
[2018-09-26 05:26] LABS: Basophils % 0.4 %; Eosinophils # 0.3 K/mcL (0.0-0.6); Eosinophils % 3.9 %; Hematocrit 36.7 % (35.3-44.9); Hemoglobin 11.2 g/dL (11.5-15.4); Immature Granulocytes % 0.9 % (0-4); Immature Platelets 3.9 % (1.1-6.1); Lymphocytes # 0.6 K/mcL (0.6-4.6); Lymphocytes % 8.5 %; Mean Corpuscular HGB Conc 30.5 g/dL (31.6-35.5); Mean Corpuscular Volume 91.8 fL (83.0-100.0); Mean Platelet Volume 9.9 fL (9.4-12.4); Monocytes # 0.7 K/mcL (0.0-1.3); Neutrophils # 5.3 K/mcL (1.6-8.9); Red Cell Distribution Width 16.3 % (11.5-14.5); Segmented Neutrophils % 76.3 %
[2018-09-26 05:28] LABS: Platelet Count 75 K/mcL (140-400)
[2018-09-26 05:48] LABS: Magnesium 1.9 mg/dL (1.6-2.6); Phosphorous 2.7 mg/dL (2.7-4.5)
[2018-09-26 05:49] LABS: Albumin 3.3 g/dL (3.5-5.7); Albumin/Globulin Ratio 0.9 (1.1-2.2); Bilirubin,Total 1.2 mg/dL (0.3-1.0); Calcium 9.3 mg/dL (8.6-10.3); Globulin 3.6 g/dL (2.4-3.5); Potassium 4.7 mEq/L (3.5-5.1); Total Protein 6.9 g/dL (6.4-8.9)
--- NOTE | 2018-09-26 09:14 | Internal Med Progress Note ---
Hospitalist Progress Note - Encounter Date of Encounter: 09/26/18 - Exam Vitals: Temp Pulse Resp BP Pulse Ox 98.1 F 69 18 161/81 96 09/26/18 06:52 09/26/18 06:52 09/26/18 06:52 09/26/18 06:52 09/26/18 06:52 - Assessment and Plan (1) Upper GI bleed Current Visit: Yes Status: Acute (2) Alcoholism Current Visit: Yes Status: Resolved (3) Acute exacerbation of chronic obstructive pulmonary disease (COPD) Current Visit: Yes Status: Resolved (4) Hypertension Current Visit: Yes Status: Chronic (5) Liver cirrhosis Current Visit: Yes Status: Acute (6) Hypothyroidism Current Visit: Yes Status: Chronic (7) Hepatic encephalopathy Current Visit: Yes Status: Acute (8) Acute kidney injury superimposed on CKD Current Visit: Yes Status: Acute (9) Hospital acquired PNA Current Visit: Yes Status: Acute (10) Hypomagnesemia Current Visit: Yes Status: Acute - Time Spent with Patient Total time spent is greater than 50% in coordination of care (as documented) at patient's floor/unit and/or counseling patient: Internal Medicine: Result - Labs CBC & Chem 7: 09/26/18 04:50 09/26/18 04:50 Labs: Short CBC 09/26/18 Range/Units 04:50 WBC 6.9 (4.3-11.1) K/mcL Hgb 11.2 L (11.5-15.4) g/dL Hct 36.7 (35.3-44.9) % Plt Count 75 L (140-400) K/mcL Neutrophils # 5.3 (1.6-8.9) K/mcL BMP 09/26/18 04:50 Sodium 144 Potassium 4.7 Chloride 117 H Carbon Dioxide 19 L BUN 32 H Creatinine 2.24 H Glucose 131 H Calcium 9.3 Liver Function 09/26/18 Range/Units 04:50 Total Bilirubin 1.2 H (0.3-1.0) mg/dL AST 37 (13-39) Units/L ALT 31 (7-52) Units/L Alkaline Phosphatase 201 H (34-104) Units/L Albumin 3.3 L (3.5-5.7) g/dL - ABG Interpretation ABG results: PT/INR, D-dimer PT 15.9 Seconds (9.4-12.1) H 09/13/18 22:22 Consult Discharge Plan - Plan Referrals: Chris Berry MD [Partnered Physician] - 10/01/18 11:00 am Prescriptions: amLODIPine [Norvasc] 5 mg PO DAILY #60 tablet Folic Acid 1 mg PO DAILY #30 tablet Lactulose 30 gm PO BID #60 udc Rifaximin [Xifaxan] 200 mg PO BID #60 tablet Thiamine (B-1) [Vitamin B-1] 100 mg PO DAILY #30 tablet Vitamin B Complex/Vit C/Vit E [Stresstab] 1 each PO DAILY #30 tablet (4) Hypertension Qualifiers: Hypertension type: essential hypertension Qualified Code(s): I10 - Essential (primary) hypertension (5) Liver cirrhosis Qualifiers: Hepatic cirrhosis type: alcoholic cirrhosis Ascites presence: with ascites Qualified Code(s): K70.31 - Alcoholic cirrhosis of liver with ascites (6) Hypothyroidism Qualifiers: Hypothyroidism type: unspecified Qualified Code(s): E03.9 - Hypothyroidism, unspecified
[2018-09-26] MEDS: Vitamin B Complex/Vit C/Vit E 1 EACH TABLET PO SCH (09:31)
[2018-09-26] MEDS: Thiamine (B-1) 100 MG TABLET PO SCH (09:31)
[2018-09-26] MEDS: amLODIPine 5 MG TABLET PO SCH (09:31)
[2018-09-26] MEDS: Artificial Tears SOLN 15 ML BOTTLE BOTH EYES SCH ×2 (09:32→13:27)
[2018-09-26] MEDS: Folic Acid 1 MG TABLET PO SCH (09:32)
[2018-09-26] MEDS: hydrALAZINE 25 MG TABLET PO SCH (09:32)
[2018-09-26] MEDS: Lactulose Oral Soln 20 GM/30 ML UDC PO SCH (09:34)
[2018-09-26 14:37] VITALS: BP 146/80
--- NOTE | 2018-09-26 15:52 | Event Note ---
Date of Encounter: 09/26/18 Time of Encounter: 15:30 I had a conversation with pt Mr Alexander regarding his current status and her desire to leave hospital AMA. He is noting that overnight she is dramatically improved with holding of tramadol. He feels she is the best she has been since admit and is much closer to her baseline. He does not find her to be confused. Discussed pt status and today being the first day her mental status has stabilized. She is insistent she leave AMA. does not feel she needs snf any longer bc she is so improved and he would feel comfortable with her going home with her. He states "there is nothing I can do to stop her from leaving". Discussed AMA and what this means. he is willing to sign AMA form along with her assuming responsibility and liability FOR FURTHER INJURY OR . HE WAS TOLD FRANKLY THAT WITH HER CIRRHOSIS CAN QUICKLY DECOMPENSATE TO FURTHER ENCEPHALOPATHY OR . He verbalized good understanding. I discussed with SW and they are unable to set up HHC with her leaving AMA. updated by nursing. He is agreeable to waiting so that she may receive rxs. He knows she needs PCP follow up and has appt 10/01/18. She also needs Nephro and Gi follow up and requests for appts made prior to her leaving
--- NOTE | 2018-09-26 16:01 | Discharge Summary ---
- NOTES TO OUTPATIENT PROVIDER Notes to Outpatient Provider: PT ADMITTED FOR 13 DAYS FOR LIVER CIRRHOSIS DECOMPENSATED WITH HEPATIC ENCEPHALOPATHY AND HEPATORENAL SYNDROME. SHE DRASTICALLY HAD IMPROVEMENT IN MENTATION WITH HOLDING OF TRAMADOL AND ON 09/26/18 SHE AND SIGNED HER OUT AMA SHE REFUSED TO BE INPT FOR FURTHER NEEDED CARE. She requires close GI and Nephro follow up. Family noted PCP appt 10/01/18 and she needs close monitoring outpt. STOP all sedating medications/pain meds. She did receive rxs for new medications started this admit. Orders not resulted at time of discharge: Pending orders 09/23/18 17:24 Culture,Blood [] Routine 09/25/18 08:34 Culture,Sputum with Gram Stain [] Stat Legionella Antigen [RM] Stat Streptococcal pneumoniae urin antigen [S. Pneumoniae Antigen] [RM] Stat 09/27/18 04:00 Basic Metabolic Panel AM 0400 CBC [Complete Blood Count] [HEME] AM 0400 Magnesium AM 0400 Phosphorous AM 0400 09/28/18 04:00 Basic Metabolic Panel AM 0400 CBC [Complete Blood Count] [HEME] AM 0400 Magnesium AM 0400 Phosphorous AM 0400 Date of Encounter: 09/26/18 Time of Encounter: 10:30 - Discharge Diagnosis (1) Upper GI bleed Priority: Primary Status: Acute Assessment and Plan: Patient on presentation was found to have a hemoglobin of 10.1 and follow-up revealed a hemoglobin of 7.2 She has received 2 units of packed red blood cells She underwent EGD which showed grade 1 varices without any overt signs of bleeding and on colonoscopy she was found to have diverticulosis as well as angiodysplastic lesion which was cauterized Patient's hemoglobin has been stable since admission and she is hemodynamically stable - omeprazole, nadolol (2) Alcoholism Priority: Secondary Status: Resolved Assessment and Plan: patient with no signs of alcohol withdrawal. she is outside the window for withdrawal given rxs for thiamine/folate/MVI (3) Acute exacerbation of chronic obstructive pulmonary disease (COPD) Priority: Secondary Status: Resolved Assessment and Plan: 2/2 pna received zosyn inpt will send rx to her pharmacy for augmentin to complete course incentive spirometry resp status stable at time of ama (4) Hypertension Priority: Secondary Status: Chronic Assessment and Plan: Continue hydralazine PO + norvasc also has prn hydralazine ordered Diuretics on hold due to kidney function Qualifiers: Hypertension type: essential hypertension Qualified Code(s): I10 - Essential (primary) hypertension (5) Liver cirrhosis Priority: Secondary Status: Acute Assessment and Plan: Liver ultrasound shows cirrhotic morphology of the liver, moderate right quadrant ascites Currently holding Lasix and spironolactone due to kidney function underwent paracentesis: Fluid analysis negative for SBP. Neutrophil count is 92 Lactulose and rifaximin as above. bms at goal currently Appreciate GI recommendations. they were made aware the day she left ama of slight increase in alk phos and t bili pt left ama prior to being able to have further gi recs knowns NO opiates, NO alcohol pcp and gi follow up required Qualifiers: Hepatic cirrhosis type: alcoholic cirrhosis Ascites presence: with ascites Qualified Code(s): K70.31 - Alcoholic cirrhosis of liver with ascites (6) Hypothyroidism Priority: Secondary Status: Chronic Assessment and Plan: continue levothyroxine Qualifiers: Hypothyroidism type: unspecified Qualified Code(s): E03.9 - Hypothyroidism, unspecified (7) Hepatic encephalopathy Priority: Secondary Status: Acute Assessment and Plan: 52 year old female who presents in transfer from [facility] for concerns of GI/variceal bleed. She was admitted there overnight last night for concerns of symptomatic anemia, weakness, cough, COPD flareup, and hyponatremia. She was found to be anemic with a hemoglobin of 10.1 yesterday and then follow-up testing today revealed hemoglobin of 7.2. Patient, herself, denies any hematemesis, melena, or hematochezia. I cannot find any documentation in the transfer records of any gross blood loss per nursing and/or transfer notes. However, there is a 3 g hemoglobin drop. I reviewed old records and note that she has known esophageal varices. Her last endoscopy here was 2 years ago in May,. At that time, she underwent variceal banding by Dr. Kelsey. She was assessed with acute GI bleed possibly secondary to hemorrhoids vs varices. Hemoglobin was low at 7.2 on arrival and she was transfused 2 units of PRBC. She had an upper endoscopy and a colonoscopy done showing non bleeding varices, hemorrhoids and angidysplasia which was cauterized. She was noted to be more somnolent after her procedures and was assessed to be in acute hepatic encephalopathy for which she was started on lactulose and rifaximin She had worsening abdominal distention with ascites and had a paracentesis done. Fluid was not positive for SBP. She also had worsening renal function which was likely secondary to hepatorenal syndrome. Lasix and spirnolactone were held and she was started on albumin boluses with improvement in her renal function. She is still weak and lethargic but has advanced liver disease 09/26 she had dramatic improvement with confusion gone and back to very near baseline per family with the holding of tramadol since 09/25 Given she was feeling fine she insisted on leaving ama and signed paperwork with her as there was nothing he could do to get her to stay rxs for rifaximin and lactulose given gi follow up (8) Acute kidney injury superimposed on CKD Priority: Secondary Status: Acute Assessment and Plan: Pt has TERRI on CKD stage 3 possibly secondary to hepatorenal syndrome, has now stabilized Kidney function improved on albumin. -Nephrology followed but hadn't seen in days she left ama prior to further eval notes she has ramp lead and will call for fu appt (9) Hospital acquired PNA Priority: Secondary Status: Acute Assessment and Plan: Pt has persistent lethargy with acute metabolic encephalopathy thought secondary to decompensated liver disease and has had a prolonged recovery on rifaximin and lactulose with intermittent confusion CXR showed new left lobe pneumonia. - zosyn -bl cxs ngtd -given rx for augmentin to complete course when left ama (10) Hypomagnesemia Priority: Secondary Status: Acute Assessment and Plan: resolved Hospital course: Ms. Alexander is a 52 year old female who was admitted with GIB, confirmed EV, diagnosed liver cirrhosis which decompensated with hepatic encephalopathy and hepatorenal syndrome causing TERRI on CKD. She was additionally diagnosed with pna this admission. She had a long course with treatment by various consulting teams. The full details of admit are in A/P section of this documentation. On 09/26 her mental status had greatly improved (after holding tramadol 09/25) and she and signed her out AMA as she refused to stay in hospital any longer. Despite numerous efforts and very long conversation with elian, she unfortunately left ama in fair condition. Given the severity of her disease process she was sent home with rx (one was called into [place] pharmacy and aware) and requests for appts with gi and nephro were made prior to dc. She has a pcp appt scheduled for 10/01/18 - Time Spent with Patient Total time spent providing and/or coordinating discharge services: - Discharge Medications Prescriptions: New Rifaximin [Xifaxan] 200 mg PO BID #60 tablet Lactulose 30 gm PO BID #60 udc Folic Acid 1 mg PO DAILY #30 tablet Thiamine (B-1) [Vitamin B-1] 100 mg PO DAILY #30 tablet Vitamin B Complex/Vit C/Vit E [Stresstab] 1 each PO DAILY #30 tablet hydrALAZINE [HydrALAZINE] 50 mg PO Q8HR #180 tablet amLODIPine [Norvasc] 10 mg PO DAILY #60 tablet Amoxicillin/Clavulanate [Augmentin] 875 mg PO BIDWM 4 Days #8 tablet Continue Levothyroxine [Synthroid] 175 mcg PO DAILY Omeprazole [PriLOSEC] 20 mg PO DAILY Albuterol Sulfate [Albuterol Inhaler] 2 puff IH Q4HR PRN PRN Reason: Shortness Of Breath Nadolol 20 mg PO DAILY Discontinued Furosemide [Lasix] 20 mg PO BID PRN PRN Reason: Edema Iron Polysaccharide Complex [Ferrex 150] 150 mg PO DAILY Gabapentin [Neurontin] 300 mg PO BID Potassium Chloride [K-Tab ER] 20 meq PO DAILY Lisinopril [Zestril] 20 mg PO DAILY Doxycycline 100 mg PO BID Hydralazine HCl 50 mg PO TID Oxycodone HCl 5 mg PO Q8H PRN PRN Reason: Pain Spironolactone 25 mg PO DAILY Trazodone HCl 50 mg PO HS Home Medications: Levothyroxine [Synthroid] 175 mcg PO DAILY 05/30/16 [History] Omeprazole [PriLOSEC] 20 mg PO DAILY 05/30/16 [History] Albuterol Sulfate [Albuterol Inhaler] 2 puff IH Q4HR PRN 09/13/18 [History] Nadolol 20 mg PO DAILY 09/13/18 [History] Folic Acid 1 mg PO DAILY #30 tablet 09/23/18 [Rx] Lactulose 30 gm PO BID #60 udc 09/23/18 [Rx] Rifaximin [Xifaxan] 200 mg PO BID #60 tablet 09/23/18 [Rx] Thiamine (B-1) [Vitamin B-1] 100 mg PO DAILY #30 tablet 09/23/18 [Rx] Vitamin B Complex/Vit C/Vit E [Stresstab] 1 each PO DAILY #30 tablet 09/23/18 [Rx] Amoxicillin/Clavulanate [Augmentin] 875 mg PO BIDWM 4 Days #8 tablet 09/26/18 [Rx] amLODIPine [Norvasc] 10 mg PO DAILY #60 tablet 09/26/18 [Rx] hydrALAZINE [HydrALAZINE] 50 mg PO Q8HR #180 tablet 09/26/18 [Rx] Allergies/Adverse Reactions: Allergy/AdvReac Type Severity Reaction Status Date / Time No Known Allergies Allergy Verified 09/13/18 19:34 Date of admission: 09/13/18 21:42 Primary care physician: PCP NONE Consults: 09/13/18 21:45 Consult to Physician [CONS] Routine Consulting Provider: Kimber Kelsey Reason for Consult: GI bleed Time Notified: 20:45 Call Completed: Yes 09/18/18 16:34 Consult to Interventional Radiology [CONS] Routine Consulting Provider: Radiology Interventional Cols Reason for Consult: paracentesis Call Completed: No 09/19/18 08:10 Consult to Ged Preparation Teacher [CONS] Routine Reason for SW Consult: Alcoholism, please provide resources. 09/19/18 08:12 Consult to Nephrology [CONS] Routine Consulting Provider: Kidney Eden/FREDY/CHARLES/ADDY Reason for Consult: terri in setting of decompensated liver disease query hepatorenal syndrome Call Completed: No 09/20/18 09:49 Consult to Occupational Therapy [CONS] Routine Comment: Evaluate, develop and implement POC Reason for Consult: Physical deconditioning Does patient have active BEDREST order?: Yes Is patient medically & hemodynamically stable?: No Patient assessed for mobility or mobilized this visit?: No Consult to Physical Therapy [CONS] Routine Comment: Evaluate, develop and implement POC Reason for Consult: Physical deconditioning Does patient have active BEDREST order?: No Is patient medically & hemodynamically stable?: Yes 09/23/18 09:30 Consult to Physical Therapy [CONS] Routine Comment: Evaluate, develop and implement POC Reason for Consult: re-eval Does patient have active BEDREST order?: No Is patient medically & hemodynamically stable?: Yes Patient assessed for mobility or mobilized this visit?: No 09/23/18 14:06 Consult to Ged Preparation Teacher [CONS] Routine Reason for SW Consult: SNF - Constitutional Vitals: Temp Pulse Resp BP Pulse Ox 97.9 F 75 15 146/80 98 09/26/18 14:32 09/26/18 14:32 09/26/18 14:32 09/26/18 14:32 09/26/18 14:32 General appearance: Present: disheveled, A&O X 3, no acute distress, answers questions appropriately Exam: Pt awake alert working with PT and in chair. She states she feels fine and like herself and is "leaving today". denies fevers, chills, cough, sob. See details of coversation with in event note prior to pt leaving AMA General: awake, alert , no apparent confusion, appears stated age HEENT:EOM intact, pupils equal, round, dry mucus membranes Cardiovascular:regular rate and rhythm, normal S1 & S2, no rubs, murmurs or gallops. no lower extremity edema Lungs:Normal breath sounds, no wheezes, or crackles. Normal respiratory effort on room air Abdomen:Soft, no apparent tenderness, non-distended, + bowel sounds Neurological: AAOxperson, place, not date, but situation, CN grossly intact, no focal deficits Skin:no pallor, + numerous ecchymotic areas on bl arms,excoriations from itching - Patient Status Disposition: Left Against Medical Advice Condition: Fair Overall status at discharge: patient is not back to baseline - Discharge Instructions Follow Up With: Chris Berry MD [Partnered Physician] - 10/01/18 11:00 am Kimber Kelsey MD [Partnered Physician] - Glen Alonzo MD [Partnered Physician] -
== END 2018-09-26 16:23 | disposition left against medical advice (07) | DRG 377 ==
LOC: 3ANU → SUATTDRO 21:42
PROVIDERS: ADMIT Internal Medicine; ATTEND Internal Medicine
PROC: ENDOCCB (2018-09-17 19:40)

== ENCOUNTER 2020-02-13 23:12 | Inpatient (IN) ==
[2020-02-14 03:09] LABS: Adenovirus Not Detected (Not Detect); Bordetella Pertussis Not Detected (Not Detect); Chlamydophila pneumoniae Not Detected (Not Detect); Coronavirus 229E Not Detected (Not Detect); Coronavirus HKU1 Not Detected (Not Detect); Coronavirus NL63 Not Detected (Not Detect); Coronavirus OC43 Not Detected (Not Detect); Human Metapneumovirus Not Detected (Not Detect); Human Rhinovirus/Enterovirus Not Detected (Not Detect); Influenza A Subtype 2009 H1 Not Detected (Not Detect); Influenza B Not Detected (Not Detect); Mycoplasma pneumoniae Not Detected (Not Detect); Parainfluenza Virus 1 Not Detected (Not Detect); Parainfluenza Virus 2 Not Detected (Not Detect); Parainfluenza Virus 3 Not Detected (Not Detect); Parainfluenza Virus 4 Not Detected (Not Detect); Respiratory Syncytial Virus Not Detected (Not Detect)
[2020-02-14 03:10] LABS: SARS-CoV-2 Not Detected (Not Detect)
[2020-02-14] MEDS ORDERED: Naloxone 0.4 MG/ML INJ IVP PRN (04:10)
[2020-02-14] MEDS ORDERED: *HR* LORazepam 2 MG/ML VIAL IVP PRN ×2 (04:41)
[2020-02-14 05:18] LABS: INR 1.5; Prothrombin Time 17.3 Seconds (9.4-12.1)
[2020-02-14 05:20] LABS: Activated Partial Thrombo Time 33.7 Seconds (26.0-36.0)
[2020-02-14 05:21] LABS: Eosinophils % 0.2 %
[2020-02-14 05:23] LABS: Basophils % 0.2 %; Hematocrit 28.6 % (35.3-44.9); Hemoglobin 9.1 g/dL (11.5-15.4); Immature Granulocytes % 0.6 % (0-4); Immature Platelets 2.6 % (1.1-6.1); Lymphocytes # 0.4 K/mcL (0.6-4.6); Lymphocytes % 7.9 %; Mean Corpuscular HGB Conc 31.8 g/dL (31.6-35.5); Mean Corpuscular Hemoglobin 28.5 pg (28.0-33.3); Mean Corpuscular Volume 89.7 fL (83.0-100.0); Mean Platelet Volume 10.7 fL (9.4-12.4); Monocytes # 0.5 K/mcL (0.0-1.3); Neutrophils # 4.2 K/mcL (1.6-8.9); Red Blood Count 3.19 M/mcL (3.82-4.97); Red Cell Distribution Width 13.4 % (11.5-14.5); Segmented Neutrophils % 81.1 %; White Blood Count 5.2 K/mcL (4.3-11.1)
[2020-02-14 05:24] LABS: VBG HCO3 24 mEq/L (21-27); VBG PCO2 37 mmHg (41-51); VBG PH 7.42 pH Units (7.32-7.42); VBG PO2 174 mmHg (25-50)
[2020-02-14 05:40] LABS: Platelet Count 53 K/mcL (140-400)
[2020-02-14 05:41] LABS: Alanine Aminotransferase 13 Units/L (7-52); Albumin 2.1 g/dL (3.5-5.7); Albumin/Globulin Ratio 0.8 (1.1-2.2); Alkaline Phosphatase 77 Units/L (34-104); Aspartate Amino Transferase 36 Units/L (13-39); BUN/Creatinine Ratio 6 (6-26); Bilirubin,Total 0.4 mg/dL (0.3-1.0); Blood Urea Nitrogen 50 mg/dL (6-20); Calcium 7.6 mg/dL (8.6-10.3); Carbon Dioxide 24 mEq/L (23-29); Chloride 96 mEq/L (98-107); Globulin 2.7 g/dL (2.4-3.5); Glucose 63 mg/dL (70-105); Magnesium 1.7 mg/dL (1.6-2.6); Osmolality,Calculated 281 (280-300); Potassium 4.1 mEq/L (3.5-5.1); Sodium 130 mEq/L (136-145); Total Protein 4.8 g/dL (6.4-8.9); Troponin I < 0.03 ng/mL (< 0.04); eGFR For African Americans 6 (> 60); eGFR For Non-African Americans 5 (> 60)
[2020-02-14 05:43] LABS: Platelet Estimate Decreased (Normal)
[2020-02-14] MEDS ORDERED: Dextrose Gel 15 GM/37.5 ML TUBE PO PRN ×2 (05:45)
[2020-02-14] MEDS ORDERED: *HR* Dextrose 50 % in Water (Vial) 50 ML VIAL IVP PRN (05:45)
[2020-02-14] MEDS ORDERED: D5% in Water 1,000 ML IVC PRN (05:45)
[2020-02-14] MEDS: Thiamine (B-1) 100 MG, Folic Acid 1 MG, MVI, adult with vitamin K 10 ML in 0.9 % Sodi... IVPB SCH (06:14)
[2020-02-14] MEDS: cefTRIAXone 2,000 MG in Water for inj. (sterile) 20 ML IVP SCH (11:45)
[2020-02-14 13:12] LABS: Hepatitis B Surface Antibody < 3.10 mIU/mL
[2020-02-14 13:23] LABS: Hepatitis B Surface Antigen Nonreactive (Nonreactive)
[2020-02-14] MEDS ORDERED: Thiamine (B-1) 100 MG, Folic Acid 1 MG, MVI, adult with vitamin K 10 ML in 0.9 % Sodi... IVPB SCH (18:00)
[2020-02-14] MEDS ORDERED: Perit. Dialysis with Dex 1.5 % 12,000 ML PERITONEAL ONE (19:00)
[2020-02-15] MEDS: *HR* LORazepam 2 MG/ML VIAL IVP PRN ×2 (06:40→19:47)
[2020-02-15] MEDS: cefTRIAXone 2,000 MG in Water for inj. (sterile) 20 ML IVP SCH (08:37)
[2020-02-15 09:21] LABS: Basophils % 0.2 %; Immature Granulocytes % 0.9 % (0-4)
[2020-02-15 09:23] LABS: Calcium 7.9 mg/dL (8.6-10.3); Eosinophils % 0.4 %; Hematocrit 31.5 % (35.3-44.9); Hemoglobin 10.1 g/dL (11.5-15.4); Immature Platelets 3.1 % (1.1-6.1); Lymphocytes # 0.5 K/mcL (0.6-4.6); Lymphocytes % 8.5 %; Mean Corpuscular HGB Conc 32.1 g/dL (31.6-35.5); Mean Corpuscular Hemoglobin 28.6 pg (28.0-33.3); Mean Corpuscular Volume 89.2 fL (83.0-100.0); Mean Platelet Volume 9.8 fL (9.4-12.4); Monocytes # 0.6 K/mcL (0.0-1.3); Monocytes % 10.4 %; Neutrophils # 4.5 K/mcL (1.6-8.9); Potassium 3.4 mEq/L (3.5-5.1); Red Blood Count 3.53 M/mcL (3.82-4.97); Red Cell Distribution Width 13.8 % (11.5-14.5); Segmented Neutrophils % 79.6 %; White Blood Count 5.7 K/mcL (4.3-11.1)
[2020-02-15 09:27] LABS: Platelet Count 62 K/mcL (140-400)
[2020-02-15] MEDS: Bumetanide 1 MG TABLET PO SCH ×2 (09:34→16:28)
[2020-02-15] MEDS: Lactulose Oral Soln 20 GM/30 ML UDC PO SCH ×2 (09:34→19:34)
[2020-02-15] MEDS: *HR* Heparin 5,000 UNIT/ML VIAL SQ SCH (16:57)
[2020-02-15] MEDS: Thiamine (B-1) 100 MG, Folic Acid 1 MG, MVI, adult with vitamin K 10 ML in 0.9 % Sodi... IVPB SCH (16:58)
[2020-02-15] MEDS ORDERED: Perit. Dialysis with Dex 1.5 % 12,000 ML PERITONEAL ONE (19:00)
[2020-02-16 04:45] LABS: Lymphocytes % 7.8 %
[2020-02-16 04:47] LABS: Basophils % 0.1 %; Eosinophils # 0.1 K/mcL (0.0-0.6); Eosinophils % 0.7 %; Hematocrit 31.1 % (35.3-44.9); Immature Granulocytes % 1.3 % (0-4); Immature Platelets 3.6 % (1.1-6.1); Lymphocytes # 0.5 K/mcL (0.6-4.6); Mean Corpuscular HGB Conc 32.2 g/dL (31.6-35.5); Mean Corpuscular Hemoglobin 28.7 pg (28.0-33.3); Mean Corpuscular Volume 89.1 fL (83.0-100.0); Mean Platelet Volume 9.9 fL (9.4-12.4); Monocytes # 0.9 K/mcL (0.0-1.3); Monocytes % 13.5 %; Neutrophils # 5.1 K/mcL (1.6-8.9); Red Blood Count 3.49 M/mcL (3.82-4.97); Segmented Neutrophils % 76.6 %; White Blood Count 6.7 K/mcL (4.3-11.1)
[2020-02-16] MEDS: *HR* Heparin 5,000 UNIT/ML VIAL SQ SCH ×2 (05:01→17:49)
[2020-02-16 05:05] LABS: Albumin 2.1 g/dL (3.5-5.7); Albumin/Globulin Ratio 0.8 (1.1-2.2); Bilirubin,Direct 0.1 mg/dL (0.0-0.2); Bilirubin,Indirect 0.3 mg/dL (0.0-1.0); Bilirubin,Total 0.4 mg/dL (0.3-1.0); Calcium 7.4 mg/dL (8.6-10.3); Globulin 2.8 g/dL (2.4-3.5); Potassium 3.3 mEq/L (3.5-5.1); Total Protein 4.9 g/dL (6.4-8.9)
[2020-02-16 05:14] LABS: Platelet Count 67 K/mcL (140-400)
[2020-02-16] MEDS: cefTRIAXone 2,000 MG in Water for inj. (sterile) 20 ML IVP SCH (08:40)
[2020-02-16] MEDS: Lactulose Oral Soln 20 GM/30 ML UDC PO SCH ×2 (08:40→23:12)
[2020-02-16] MEDS: Bumetanide 1 MG TABLET PO SCH ×2 (08:40→15:41)
[2020-02-16 12:52] LABS: Amphetamine Screen,Urine Negative ng/mL (Cutoff=1000); Barbiturate Screen,Urine Negative ng/mL (Cutoff=200)
[2020-02-16 12:53] LABS: Benzodiazepines Screen,Urine Negative ng/mL (Cutoff=300); Cannabinoid Screen,Urine Negative ng/mL (Cutoff = 50); Cocaine Screen,Urine Negative ng/mL (Cutoff= 300); Opiate Screen,Urine Negative ng/mL (Cutoff=300); Phencyclidine Screen,Urine Negative ng/mL (Cutoff=25)
[2020-02-16 14:03] LABS: RBC,Peritoneal Fluid < 2000 RBC/mcL
[2020-02-16 15:21] LABS: Appearance of Peritoneal Fl CLEAR (Clear)
[2020-02-16] MEDS ORDERED: 0.9 % Sodium Chloride 500 ML IV ONE (16:31)
[2020-02-16] MEDS ORDERED: 0.9 % Sodium Chloride 1,000 ML ONE (16:36)
[2020-02-16] MEDS: Thiamine (B-1) 100 MG, Folic Acid 1 MG, MVI, adult with vitamin K 10 ML in 0.9 % Sodi... IVPB SCH (17:47)
[2020-02-16] MEDS ORDERED: Perit. Dialysis with Dex 1.5 % 12,000 ML PERITONEAL ONE (22:00)
[2020-02-17 01:48] LABS: Hematocrit 30.4 % (35.3-44.9); Hemoglobin 9.4 g/dL (11.5-15.4); Immature Granulocytes % 0.7 % (0-4); Immature Platelets 3.1 % (1.1-6.1); Lymphocytes # 0.5 K/mcL (0.6-4.6); Lymphocytes % 11.9 %; Mean Corpuscular HGB Conc 30.9 g/dL (31.6-35.5); Mean Corpuscular Hemoglobin 28.1 pg (28.0-33.3); Mean Platelet Volume 10.5 fL (9.4-12.4); Monocytes # 0.4 K/mcL (0.0-1.3); Monocytes % 10.5 %; Neutrophils # 3.1 K/mcL (1.6-8.9); Red Blood Count 3.34 M/mcL (3.82-4.97); Red Cell Distribution Width 14.4 % (11.5-14.5); Segmented Neutrophils % 75.9 %; White Blood Count 4.1 K/mcL (4.3-11.1)
[2020-02-17 01:54] LABS: Platelet Count 45 K/mcL (140-400)
[2020-02-17 02:10] LABS: Calcium 7.4 mg/dL (8.6-10.3); Potassium 3.1 mEq/L (3.5-5.1)
[2020-02-17 02:11] LABS: Albumin 1.9 g/dL (3.5-5.7); Albumin/Globulin Ratio 0.7 (1.1-2.2); Bilirubin,Total 0.4 mg/dL (0.3-1.0); Calcium 7.4 mg/dL (8.6-10.3); Globulin 2.8 g/dL (2.4-3.5); Potassium 3.1 mEq/L (3.5-5.1); Total Protein 4.7 g/dL (6.4-8.9)
[2020-02-17] MEDS: *HR* Heparin 5,000 UNIT/ML VIAL SQ SCH (05:47)
[2020-02-17] MEDS: cefTRIAXone 2,000 MG in Water for inj. (sterile) 20 ML IVP SCH (08:34)
[2020-02-17] MEDS: Lactulose Oral Soln 20 GM/30 ML UDC PO SCH ×2 (08:35→15:33)
[2020-02-17] MEDS: Bumetanide 1 MG TABLET PO SCH ×2 (08:36→18:33)
[2020-02-17] MEDS ORDERED: Magnesium Sulfate 1 GM/102 ML PIGGYBACK IVPB ONE (12:25)
[2020-02-17] MEDS ORDERED: Perit. Dialysis with Dex 1.5 % 12,000 ML PERITONEAL ONE (19:00)
[2020-02-17] MEDS: Mirtazapine 15 MG TABLET PO SCH (22:33)
[2020-02-17] MEDS: traZODone 50 MG TABLET PO SCH (22:33)
[2020-02-17] MEDS: Gabapentin 300 MG CAPSULE PO SCH (22:33)
[2020-02-18 06:08] LABS: Mean Corpuscular Volume 89.9 fL (83.0-100.0); Red Cell Distribution Width 14.7 % (11.5-14.5)
[2020-02-18 06:10] LABS: Hemoglobin 10.6 g/dL (11.5-15.4); Immature Platelets 3.3 % (1.1-6.1); Mean Corpuscular HGB Conc 31.2 g/dL (31.6-35.5); Mean Platelet Volume 10.9 fL (9.4-12.4); Red Blood Count 3.78 M/mcL (3.82-4.97); White Blood Count 6.3 K/mcL (4.3-11.1)
[2020-02-18 06:36] LABS: Calcium 7.9 mg/dL (8.6-10.3); Potassium 3.1 mEq/L (3.5-5.1)
[2020-02-18] MEDS ORDERED: Potassium Chloride 40 MEQ, Lidocaine 1% 2 ML in 0.9 % Sodium Chloride 500 ML IVPB ONE (07:53)
[2020-02-18 08:14] LABS: Albumin 2.3 g/dL (3.5-5.7); Albumin/Globulin Ratio 0.8 (1.1-2.2); Bilirubin,Direct 0.2 mg/dL (0.0-0.2); Bilirubin,Indirect 0.2 mg/dL (0.0-1.0); Bilirubin,Total 0.4 mg/dL (0.3-1.0); Magnesium 1.6 mg/dL (1.6-2.6); Total Protein 5.3 g/dL (6.4-8.9)
[2020-02-18] MEDS: Lactulose Oral Soln 20 GM/30 ML UDC PO SCH ×2 (09:49→20:33)
[2020-02-18] MEDS: Vitamin B Complex/Vit C/Vit E 1 EACH TABLET PO SCH (09:49)
[2020-02-18] MEDS: Thiamine (B-1) 100 MG TABLET PO SCH (09:49)
[2020-02-18] MEDS: Bumetanide 1 MG TABLET PO SCH ×2 (09:49→16:05)
[2020-02-18] MEDS: Magnesium Oxide 400 MG TABLET PO SCH (09:50)
[2020-02-18] MEDS: Calcium Acetate 667 MG CAPSULE PO SCH ×3 (09:50→16:06)
[2020-02-18] MEDS: cefTRIAXone 2,000 MG in Water for inj. (sterile) 20 ML IVP SCH (09:51)
[2020-02-18] MEDS: Folic Acid 1 MG TABLET PO SCH (09:51)
[2020-02-18] MEDS: Gabapentin 300 MG CAPSULE PO SCH ×2 (09:51→20:34)
[2020-02-18] MEDS ORDERED: Perit. Dialysis with Dex 1.5 % 12,000 ML PERITONEAL ONE (19:00)
[2020-02-18] MEDS: traZODone 50 MG TABLET PO SCH (20:33)
[2020-02-18] MEDS: Mirtazapine 15 MG TABLET PO SCH (20:34)
[2020-02-19 04:35] LABS: Basophils % 0.3 %; Eosinophils % 1.1 %; Hemoglobin 11.4 g/dL (11.5-15.4)
[2020-02-19 04:37] LABS: Eosinophils # 0.1 K/mcL (0.0-0.6); Immature Granulocytes % 2.3 % (0-4); Immature Platelets 3.3 % (1.1-6.1); Lymphocytes # 0.8 K/mcL (0.6-4.6); Lymphocytes % 8.6 %; Mean Corpuscular HGB Conc 31.7 g/dL (31.6-35.5); Mean Corpuscular Hemoglobin 28.6 pg (28.0-33.3); Mean Corpuscular Volume 90.5 fL (83.0-100.0); Monocytes # 0.7 K/mcL (0.0-1.3); Monocytes % 7.3 %; Neutrophils # 7.8 K/mcL (1.6-8.9); Platelet Count 100 K/mcL (140-400); Red Blood Count 3.98 M/mcL (3.82-4.97); Red Cell Distribution Width 14.7 % (11.5-14.5); Segmented Neutrophils % 80.4 %; White Blood Count 9.7 K/mcL (4.3-11.1)
[2020-02-19 04:55] LABS: Calcium 7.8 mg/dL (8.6-10.3); Magnesium 1.4 mg/dL (1.6-2.6); Potassium 3.4 mEq/L (3.5-5.1)
[2020-02-19] MEDS ORDERED: Magnesium Sulfate 1 GM/102 ML PIGGYBACK IVPB ONE (08:37)
[2020-02-19] MEDS: Calcium Acetate 667 MG CAPSULE PO SCH ×3 (09:26→17:10)
[2020-02-19] MEDS: cefTRIAXone 2,000 MG in Water for inj. (sterile) 20 ML IVP SCH (09:35)
[2020-02-19] MEDS: Bumetanide 1 MG TABLET PO SCH ×2 (09:35→17:10)
[2020-02-19] MEDS: Lactulose Oral Soln 20 GM/30 ML UDC PO SCH ×2 (09:35→21:12)
[2020-02-19] MEDS: Vitamin B Complex/Vit C/Vit E 1 EACH TABLET PO SCH (09:35)
[2020-02-19] MEDS: Folic Acid 1 MG TABLET PO SCH (09:36)
[2020-02-19] MEDS: Magnesium Oxide 400 MG TABLET PO SCH (09:36)
[2020-02-19] MEDS: Thiamine (B-1) 100 MG TABLET PO SCH (09:36)
[2020-02-19] MEDS ORDERED: Ibuprofen 600 MG TABLET PO PRN ×2 (11:43→12:00)
[2020-02-19] MEDS ORDERED: Perit. Dialysis with Dex 1.5 % 12,000 ML PERITONEAL ONE (19:00)
[2020-02-19] MEDS ORDERED: Gabapentin 300 MG CAPSULE PO SCH (21:00)
[2020-02-19] MEDS: traZODone 50 MG TABLET PO SCH (21:11)
[2020-02-19] MEDS: Mirtazapine 15 MG TABLET PO SCH (21:11)
[2020-02-20 06:18] LABS: Eosinophils % 1.1 %; Hemoglobin 10.9 g/dL (11.5-15.4); Lymphocytes % 11.3 %
[2020-02-20 06:20] LABS: Basophils % 0.4 %; Eosinophils # 0.1 K/mcL (0.0-0.6); Hematocrit 34.7 % (35.3-44.9); Immature Granulocytes % 2.3 % (0-4); Immature Platelets 3.1 % (1.1-6.1); Lymphocytes # 1.1 K/mcL (0.6-4.6); Mean Corpuscular HGB Conc 31.4 g/dL (31.6-35.5); Mean Corpuscular Hemoglobin 28.3 pg (28.0-33.3); Mean Corpuscular Volume 90.1 fL (83.0-100.0); Mean Platelet Volume 10.5 fL (9.4-12.4); Monocytes # 0.8 K/mcL (0.0-1.3); Monocytes % 8.5 %; Neutrophils # 7.4 K/mcL (1.6-8.9); Red Blood Count 3.85 M/mcL (3.82-4.97); Red Cell Distribution Width 14.9 % (11.5-14.5); Segmented Neutrophils % 76.4 %; White Blood Count 9.7 K/mcL (4.3-11.1)
[2020-02-20 06:22] LABS: Platelet Count 99 K/mcL (140-400)
[2020-02-20 06:28] LABS: Albumin 2.1 g/dL (3.5-5.7); Albumin/Globulin Ratio 0.7 (1.1-2.2); Bilirubin,Total 0.4 mg/dL (0.3-1.0); Calcium 7.9 mg/dL (8.6-10.3); Potassium 3.6 mEq/L (3.5-5.1); Total Protein 5.1 g/dL (6.4-8.9)
[2020-02-20 07:05] LABS: Magnesium 1.6 mg/dL (1.6-2.6)
[2020-02-20] MEDS: Magnesium Oxide 400 MG TABLET PO SCH (07:45)
[2020-02-20] MEDS: Vitamin B Complex/Vit C/Vit E 1 EACH TABLET PO SCH (07:45)
[2020-02-20] MEDS: Lactulose Oral Soln 20 GM/30 ML UDC PO SCH (07:45)
[2020-02-20] MEDS: Bumetanide 1 MG TABLET PO SCH (07:45)
[2020-02-20] MEDS: Folic Acid 1 MG TABLET PO SCH (07:46)
[2020-02-20] MEDS: Calcium Acetate 667 MG CAPSULE PO SCH (07:46)
[2020-02-20] MEDS: Thiamine (B-1) 100 MG TABLET PO SCH (07:46)
[2020-02-20 10:24] LABS: Bilirubin,Urine Moderate (Negative); Blood,Urine Trace-lysed (Negative); Clarity,Urine Clear (Clear); Color,Urine Yellow (Yellow); Glucose,Urine (UA) Normal (Normal); Ketones,Urine 15 mg/dL (Negative); Leukocyte Esterase,Urine Trace (Negative); Nitrite,Urine Negative (Negative); Protein,Urine 30 mg/dL (Neg-Trace); Specific Gravity,Urine 1.025 (1.010-1.025); Urobilinogen,Urine Normal (Normal)
[2020-02-20 10:28] LABS: Squamous Epithelial Cell,Urine Many per hpf (None-Few); Transitional Epi Cells,Urine Few per hpf (None-Few)
[2020-02-20 10:29] LABS: Budding Yeast,Urine Moderate per hpf (None Seen)
[2020-02-20 10:30] LABS: Bacteria,Urine Few per hpf (None-Few)
[2020-02-20] MEDS: cefTRIAXone 2,000 MG in Water for inj. (sterile) 20 ML IVP SCH (10:30)
[2020-02-20 10:31] LABS: RBC,Urine 0-3 per hpf (0-3)
[2020-02-20 10:51] VITALS: BP 115/54
== END 2020-02-20 12:43 | disposition home or self-care (01) | DRG 919 ==
LOC: 2ANU → SUATTDRO 02-14 17:59
PROVIDERS: ADMIT Internal Medicine; ATTEND Internal Medicine

== ENCOUNTER 2020-12-02 13:58 | Observation (INO) ==
[2020-12-02 14:45] LABS: Basophils % 0.7 %; Eosinophils % 0.3 %; Hematocrit 33.3 % (35.3-44.9); Hemoglobin 10.7 g/dL (11.5-15.4); Immature Granulocytes % 0.2 % (0-4); Lymphocytes # 0.4 K/mcL (0.6-4.6); Lymphocytes % 6.7 %; Mean Corpuscular HGB Conc 32.1 g/dL (31.6-35.5); Mean Corpuscular Hemoglobin 28.8 pg (28.0-33.3); Mean Corpuscular Volume 89.8 fL (83.0-100.0); Mean Platelet Volume 8.9 fL (9.4-12.4); Monocytes # 0.6 K/mcL (0.0-1.3); Monocytes % 10.4 %; Neutrophils # 4.7 K/mcL (1.6-8.9); Red Blood Count 3.71 M/mcL (3.82-4.97); Red Cell Distribution Width 15.5 % (11.5-14.5); Segmented Neutrophils % 81.7 %; White Blood Count 5.8 K/mcL (4.3-11.1)
[2020-12-02 14:46] LABS: Platelet Count 78 K/mcL (140-400)
[2020-12-02 14:57] LABS: INR 1.3; Prothrombin Time 14.6 Seconds (9.4-12.1)
[2020-12-02 15:25] LABS: Bilirubin,Urine Negative (Negative); Blood,Urine Trace (Negative); Clarity,Urine Clear (Clear); Color,Urine Yellow (Yellow); Glucose,Urine (UA) 50 mg/dL (Normal); Ketones,Urine Negative (Negative); Leukocyte Esterase,Urine Negative (Negative); Nitrite,Urine Negative (Negative); PH,Urine 7.5 pH Units (5.0-8.0); Protein,Urine 100 mg/dL (Neg-Trace); Specific Gravity,Urine 1.013 (1.010-1.025); Squamous Epithelial Cell,Urine Few per hpf (None-Few); WBC,Urine 0-3 per hpf (0-3)
[2020-12-02 15:26] LABS: Alanine Aminotransferase 7 Units/L (7-52); Albumin 3.4 g/dL (3.5-5.7); Albumin/Globulin Ratio 0.9 (1.1-2.2); Alkaline Phosphatase 154 Units/L (34-104); Aspartate Amino Transferase 28 Units/L (13-39); BUN/Creatinine Ratio 5 (6-26); Bilirubin,Direct 0.9 mg/dL (0.0-0.2); Bilirubin,Indirect 1.1 mg/dL (0.0-1.0); Blood Urea Nitrogen 21 mg/dL (6-20); Calcium 8.6 mg/dL (8.6-10.3); Carbon Dioxide 25 mEq/L (23-29); Chloride 95 mEq/L (98-107); Globulin 3.9 g/dL (2.4-3.5); Glucose 129 mg/dL (70-105); Osmolality,Calculated 277 (280-300); Potassium 3.2 mEq/L (3.5-5.1); Sodium 131 mEq/L (136-145); Thyroid Stimulating Hormone 8.603 mcIU/mL (0.340-5.600); Total Protein 7.3 g/dL (6.4-8.9); Troponin I 0.05 ng/mL (< 0.04); eGFR For African Americans 13 (> 60); eGFR For Non-African Americans 11 (> 60)
[2020-12-02 16:01] LABS: Amphetamine Screen,Urine Negative ng/mL (Cutoff=1000); Barbiturate Screen,Urine Negative ng/mL (Cutoff=200); Benzodiazepines Screen,Urine Negative ng/mL (Cutoff=200); Cannabinoid Screen,Urine Negative ng/mL (Cutoff = 50); Cocaine Screen,Urine Negative ng/mL (Cutoff= 300); Opiate Screen,Urine Negative ng/mL (Cutoff=300); Phencyclidine Screen,Urine Negative ng/mL (Cutoff=25)
[2020-12-02 16:03] LABS: Ethanol < 10 mg/dL (Less than 10)
[2020-12-02] MEDS ORDERED: 0.9 % Sodium Chloride 500 ML IVC STA (16:34)
[2020-12-02] MEDS ORDERED: Naloxone 0.4 MG/ML INJ IVP PRN (17:51)
[2020-12-02] MEDS ORDERED: Acetaminophen 325 MG TABLET PO PRN (17:51)
[2020-12-02] MEDS: Lactulose Oral Soln 20 GM/30 ML UDC PO SCH ×2 (20:17→20:20)
[2020-12-02] MEDS ORDERED: Mirtazapine 15 MG TABLET PO SCH (21:00)
[2020-12-02] MEDS ORDERED: *HR* Metoprolol 5 MG/5 ML VIAL IVP PRN (23:24)
[2020-12-03 02:34] LABS: Basophils % 0.6 %; Eosinophils # 0.1 K/mcL (0.0-0.6); Eosinophils % 1.2 %; Hematocrit 32.7 % (35.3-44.9); Hemoglobin 10.9 g/dL (11.5-15.4); Immature Granulocytes % 0.1 % (0-4); Lymphocytes # 0.8 K/mcL (0.6-4.6); Lymphocytes % 10.9 %; Mean Corpuscular HGB Conc 33.3 g/dL (31.6-35.5); Mean Corpuscular Hemoglobin 29.4 pg (28.0-33.3); Mean Corpuscular Volume 88.1 fL (83.0-100.0); Monocytes % 14.2 %; Red Blood Count 3.71 M/mcL (3.82-4.97); Red Cell Distribution Width 15.4 % (11.5-14.5); White Blood Count 6.9 K/mcL (4.3-11.1)
[2020-12-03 02:36] LABS: Platelet Count 76 K/mcL (140-400)
[2020-12-03 03:00] LABS: Troponin I 0.05 ng/mL (< 0.04)
[2020-12-03 03:02] LABS: Albumin 3.1 g/dL (3.5-5.7); Albumin/Globulin Ratio 0.8 (1.1-2.2); Bilirubin,Total 1.8 mg/dL (0.3-1.0); Calcium 8.3 mg/dL (8.6-10.3); Globulin 3.7 g/dL (2.4-3.5); Phosphorous 4.1 mg/dL (2.7-4.5); Potassium 3.9 mEq/L (3.5-5.1); Total Protein 6.8 g/dL (6.4-8.9)
[2020-12-03] MEDS ORDERED: *HR* Labetalol 20 MG/4 ML SYRINGE IVP ONE (03:37)
[2020-12-03] MEDS: *HR* Heparin 5,000 UNIT/ML VIAL SQ SCH ×2 (05:30→17:49)
[2020-12-03] MEDS: Calcium Acetate 667 MG CAPSULE PO SCH ×3 (08:17→14:44)
[2020-12-03] MEDS: Lactulose Oral Soln 20 GM/30 ML UDC PO SCH ×3 (08:18→18:07)
[2020-12-03] MEDS ORDERED: Gabapentin 300 MG CAPSULE PO SCH (09:00)
[2020-12-03] MEDS ORDERED: Vitamin B Complex/Vit C/Vit E 1 EACH TABLET PO SCH (09:00)
[2020-12-03] MEDS ORDERED: Folic Acid 1 MG TABLET PO SCH (09:00)
[2020-12-03] MEDS ORDERED: Thiamine (B-1) 100 MG TABLET PO SCH (09:00)
[2020-12-03] MEDS ORDERED: Furosemide 40 MG TABLET PO SCH (09:00)
[2020-12-03] MEDS ORDERED: Cholecalciferol (D-3) 1,000 UNIT (25MCG) TABLET PO SCH (09:00)
[2020-12-03] MEDS ORDERED: Magnesium Oxide 400 MG TABLET PO SCH (09:00)
[2020-12-03] MEDS ORDERED: 0.9 % Sodium Chloride 250 ML IVC PRN (12:25)
[2020-12-03] MEDS ORDERED: 0.9 % Sodium Chloride 1,000 ML PRIME SCH (12:30)
[2020-12-03] MEDS ORDERED: 0.9 % Sodium Chloride 1,000 ML ONE (12:45)
[2020-12-03 13:30] LABS: Hepatitis B Surface Antibody < 3.10 mIU/mL
[2020-12-03 13:41] LABS: Hepatitis B Surface Antigen Nonreactive (Nonreactive)
[2020-12-03 16:45] VITALS: BP 121/78
== END 2020-12-03 18:02 | disposition left against medical advice (07) ==
LOC: EMEROOARM 13:58 → 2ANU 13:58
PROVIDERS: ADMIT Pharmacist; ATTEND Pharmacist

== ENCOUNTER 2021-10-12 14:29 | Inpatient (IN) ==
[2021-10-12] MEDS ORDERED: *HR* LORazepam 2 MG/ML VIAL IVP ONE (16:45)
[2021-10-12] MEDS ORDERED: *HR* LORazepam 2 MG/ML VIAL IVP PRN (17:22)
[2021-10-12] MEDS ORDERED: Naloxone 0.4 MG/ML INJ IVP PRN (17:51)
[2021-10-12] MEDS ORDERED: Ondansetron 4 MG/2 ML VIAL IVP PRN (17:51)
[2021-10-12] MEDS ORDERED: Haloperidol Lactate 5 MG/ML VIAL IVP PRN (18:29)
[2021-10-12] MEDS ORDERED: Lactulose 200 GM, Sodium Chloride IRRigation 700 ML RC ONE (18:35)
[2021-10-12] MEDS: Lactulose Oral Soln 20 GM/30 ML UDC PO SCH (21:18)
[2021-10-12] MEDS: Lactulose 200 GM, Sodium Chloride IRRigation 700 ML RC SCH (23:47)
[2021-10-13] MEDS: Lactulose 200 GM, Sodium Chloride IRRigation 700 ML RC SCH (05:29)
[2021-10-13 06:13] LABS: Basophils % 0.3 %; Eosinophils # 0.1 K/mcL (0.0-0.6); Eosinophils % 1.6 %; Hematocrit 22.8 % (35.3-44.9); Hemoglobin 7.1 g/dL (11.5-15.4); Lymphocytes # 0.6 K/mcL (0.6-4.6); Lymphocytes % 17.6 %; Mean Corpuscular HGB Conc 31.1 g/dL (31.6-35.5); Mean Corpuscular Hemoglobin 29.7 pg (28.0-33.3); Mean Corpuscular Volume 95.4 fL (83.0-100.0); Mean Platelet Volume 10.4 fL (9.4-12.4); Monocytes # 0.5 K/mcL (0.0-1.3); Monocytes % 15.1 %; Neutrophils # 2.1 K/mcL (1.6-8.9); Red Blood Count 2.39 M/mcL (3.82-4.97); Red Cell Distribution Width 16.7 % (11.5-14.5); Segmented Neutrophils % 65.4 %; White Blood Count 3.2 K/mcL (4.3-11.1)
[2021-10-13 06:15] LABS: Platelet Count 98 K/mcL (140-400)
[2021-10-13 06:34] LABS: Albumin 2.7 g/dL (3.5-5.7); Albumin/Globulin Ratio 0.9 (1.1-2.2); Bilirubin,Total 0.7 mg/dL (0.3-1.0); Calcium 7.5 mg/dL (8.6-10.3); Magnesium 1.7 mg/dL (1.6-2.6); Phosphorous 4.5 mg/dL (2.7-4.5); Potassium 4.7 mEq/L (3.5-5.1); Total Protein 5.7 g/dL (6.4-8.9)
[2021-10-13] MEDS: Lactulose Oral Soln 20 GM/30 ML UDC PO SCH ×3 (07:52→19:50)
[2021-10-13] MEDS: hydrALAZINE 25 MG TABLET PO PRN ×2 (10:05→19:55)
[2021-10-13 14:17] LABS: Hepatitis B Surface Antibody 204.96 mIU/mL
[2021-10-13 14:29] LABS: Hepatitis B Surface Antigen Nonreactive (Nonreactive)
[2021-10-14] MEDS ORDERED: *HR* Labetalol 20 MG/4 ML SYRINGE IVP ONE (02:27)
[2021-10-14 03:23] LABS: Hemoglobin 7.3 g/dL (11.5-15.4); Mean Corpuscular HGB Conc 31.7 g/dL (31.6-35.5); Mean Corpuscular Hemoglobin 30.3 pg (28.0-33.3); Mean Corpuscular Volume 95.4 fL (83.0-100.0); Mean Platelet Volume 10.6 fL (9.4-12.4); Platelet Count 103 K/mcL (140-400); Red Blood Count 2.41 M/mcL (3.82-4.97); Red Cell Distribution Width 17.2 % (11.5-14.5)
[2021-10-14 03:24] LABS: White Blood Count 4.9 K/mcL (4.3-11.1)
[2021-10-14 03:44] LABS: Calcium 7.1 mg/dL (8.6-10.3); Potassium 4.9 mEq/L (3.5-5.1)
[2021-10-14] MEDS: Lactulose Oral Soln 20 GM/30 ML UDC PO SCH ×2 (07:51→15:10)
[2021-10-14] MEDS ORDERED: traZODone 50 MG TABLET PO PRN (08:09)
[2021-10-14] MEDS ORDERED: carvediloL 6.25 MG TABLET PO SCH (09:00)
[2021-10-14] MEDS ORDERED: 0.9 % Sodium Chloride 250 ML IVC PRN (09:02)
[2021-10-14] MEDS ORDERED: 0.9 % Sodium Chloride 1,000 ML PRIME SCH (09:15)
[2021-10-14] MEDS ORDERED: Ethyl Chloride Spray Bottle (104 SPRAY/BOTTLE) TP PRN (09:22)
[2021-10-14] MEDS ORDERED: cefTRIAXone 1,000 MG in 0.9 % Sodium Chloride 10 ML IVP SCH (12:00)
[2021-10-14] MEDS ORDERED: cefTRIAXone 2,000 MG in 0.9 % Sodium Chloride Mini Bag 100 ML IVPB SCH (13:00)
[2021-10-14 15:17] VITALS: BP 157/76; O2SAT 97
[2021-10-14 15:18] VITALS: PULSE 87
[2021-10-14 16:51] VITALS: TEMP 97.3
== END 2021-10-14 16:10 | disposition left against medical advice (07) | DRG 441 ==
LOC: 2ANU → SUATTDRO 16:19 → 2NNU 21:08
PROVIDERS: ADMIT Internal Medicine; ATTEND Student in an Organized Health Care Education/Training Program